=== PATIENT | female | born 1970 | race American Indian/Alaskan Native ===

== ENCOUNTER 2017-03-24 12:10 | Inpatient (IN) | payer MEDICARE ==
[~2017-03-24 12:10] MED LIST: DECADRON 20 MG in NACL 0.9% 50 ML IV ONE; DECADRON ONE
[2017-03-24] MEDS ORDERED: VERSED IV NR ×2 (12:17→13:49)
[2017-03-24] MEDS ORDERED: AMIDATE IV ONE (12:17)
[2017-03-24] MEDS ORDERED: KETALAR IV ONE ×2 (12:20→12:24)
[2017-03-24] MEDS ORDERED: QUELICIN IV ONE (12:23)
[2017-03-24] MEDS ORDERED: NACL 0.9% 1000 ML 0 ML ONE (12:29)
[2017-03-24] MEDS ORDERED: DIPRIVAN 10 MG/ML 1,000 MG/100 ML BOTTLE IV ONE (12:30)
[2017-03-24] MEDS ORDERED: ARTIFICIAL TEARS OPHTH OINT OU PRN (12:34)
[2017-03-24] MEDS ORDERED: VASELINE LIP THERAPY TP PRN (12:34)
[2017-03-24] MEDS ORDERED: ZEMURON IV ONE ×2 (12:35→20:15)
[2017-03-24] MEDS: DIPRIVAN 10 MG/ML 1,000 MG/100 ML BOTTLE IV SCH ×2 (12:37→19:08)
[2017-03-24 12:57] LABS: Basophils % (Auto) 0.7 % (0.0-1.8); Eosinophils % (Auto) 6.2 % (0.0-4.3); Hematocrit 35.5 % (30.3-42.9); Hemoglobin 11.5 gm/dl (10.1-14.3); Mean Corpuscular HGB Conc 33 % (30-34); Mean Corpuscular Volume 70 fl (79-97); Red Blood Count 5.07 M/mm3 (3.65-5.03); Red Cell Distribution Width 17.1 % (13.2-15.2); White Blood Count 8.6 K/mm3 (4.5-11.0)
--- NOTE | 2017-03-24 12:57 | History and Physical Report ---
History of Present Illness Date of examination: 03/24/17 Date of admission: 03/24/17 Chief complaint: Severe swelling of Lips and Tongue since AM DIfficulty swallowing Also resp distress. since AM History of present illness: SEMINOLE: Patient states that she awoke from sleep with neck and tongue swelling. She states she's never had anything like this before. She does admit to difficulty in breathing but is not frankly stridorous. She states that she cannot swallow her secretions. She is on lisinopril 40 mg daily and compliant. She's had no other obvious exposure. She was transported via EMS who gave her 0.5 of epinephrine and 50 of Benadryl IM. There was no appreciable change in route. -: During the night Location: mouth (tongue), neck Radiation: non-radiation Severity scale (0 -10): 0 Consistency: constant Improves with: none Worsens with: none In the ED patient was intubated by Dr Solitario and it was moderately difficult intubation.Has severe Lip and Tongue swelling. - Related Data Home Medications Medication Instructions Recorded Confirmed Last Taken Budesoni/Formotero 160-4.5(Nf) 1 puff IH Q6H PRN 11/10/13 08/29/14 Unknown [Symbicort 160-4.5 (Nf)] Furosemide [Lasix] 40 mg PO QDAY 11/10/13 08/29/14 08/28/14 09:00 Hydroxychloroquine [Plaquenil] 200 mg PO QDAY 11/10/13 08/29/14 08/28/14 09:00 Lisinopril [Zestril] 40 mg PO QDAY 11/10/13 08/29/14 08/28/14 09:00 Tiotropium [Spiriva] 1 cap IH QDAY 11/10/13 08/29/14 08/28/14 09:00 Tizanidine HCl [Zanaflex] 4 mg PO Q8H PRN 11/10/13 08/29/14 08/28/14 09:00 Allopurinol [Zyloprim] 100 mg PO QDAY 08/29/14 08/29/14 08/28/14 09:00 Ergocalciferol [Vitamin D2] 50,000 unit PO QWEEK 08/29/14 08/29/14 08/24/14 09: 00 Folic Acid [Folvite] 1 mg PO QDAY 08/29/14 08/29/14 08/28/14 09:00 Methotrexate(Dose Weekly Only) 10 mg PO QWEEK 08/29/14 08/29/14 08/24/14 09:00 Metoprolol [Lopressor TAB] 25 mg PO QDAY 08/29/14 08/29/14 08/28/14 09:00 Previous Rx's Medication Instructions Recorded Last Taken Type Metoclopramide HCl [Reglan] 10 mg PO Q6H PRN #15 tablet 11/10/13 Unknown Rx Hyoscyamine Subl [Levsin Sl] 0.125 mg SL Q4HR PRN #10 tablet 08/29/14 Unknown Rx Ondansetron [Zofran Odt] 4 mg PO Q6H #10 tab.rapdis 08/29/14 Unknown Rx Allergies Allergy/AdvReac Type Severity Reaction Status Date / Time No Known Allergies Allergy Verified 08/29/14 10:02 ED Review of Systems ROS: Stated complaint: SREE/SWOLLEN TONGUE/ALLERGIC REACTION Other details as noted in HPI Constitutional: denies: chills, fever Eyes: denies: eye pain, eye discharge, vision change ENT: as per HPI. denies: ear pain, throat pain Respiratory: no symptoms reported. denies: cough, wheezing Cardiovascular: denies: chest pain, palpitations Endocrine: no symptoms reported Gastrointestinal: denies: abdominal pain, nausea, diarrhea Genitourinary: denies: urgency, dysuria, discharge Musculoskeletal: denies: back pain, joint swelling, arthralgia Skin: denies: rash, lesions Neurological: denies: headache, weakness, paresthesias Psychiatric: denies: anxiety, depression Hematological/Lymphatic: denies: easy bleeding, easy bruising ED Past Medical Hx - Past Medical History Hx Hypertension: Yes Hx Renal Disease: Yes Hx Asthma: Yes Additional medical history: lupus - Surgical History Hx Cholecystectomy: Yes Additional Surgical History: TUBAL LIGATION. LEFT OVARY REMOVED. LEFT FOOT RECONSTRUCTION - Social History Smoking Status: Former Smoker Substance Use Type: None - Medications Home Medications: Home Medications Medication Instructions Recorded Confirmed Last Taken Type Budesoni/Formotero 160-4.5(Nf) 1 puff IH Q6H PRN 11/10/13 08/29/14 Unknown History [Symbicort 160-4.5 (Nf)] Furosemide [Lasix] 40 mg PO QDAY 11/10/13 08/29/14 08/28/14 09:00 History Hydroxychloroquine [Plaquenil] 200 mg PO QDAY 11/10/13 08/29/14 08/28/14 09:00 History Lisinopril [Zestril] 40 mg PO QDAY 11/10/13 08/29/14 08/28/14 09:00 History Metoclopramide HCl [Reglan] 10 mg PO Q6H PRN #15 tablet 11/10/13 08/29/14 Unknown Rx Tiotropium [Spiriva] 1 cap IH QDAY 11/10/13 08/29/14 08/28/14 09:00 History Tizanidine HCl [Zanaflex] 4 mg PO Q8H PRN 11/10/13 08/29/14 08/28/14 09:00 History Allopurinol [Zyloprim] 100 mg PO QDAY 08/29/14 08/29/14 08/28/14 09:00 History Ergocalciferol [Vitamin D2] 50,000 unit PO QWEEK 08/29/14 08/29/14 08/24/14 09: 00 History Folic Acid [Folvite] 1 mg PO QDAY 08/29/14 08/29/14 08/28/14 09:00 History Hyoscyamine Subl [Levsin Sl] 0.125 mg SL Q4HR PRN #10 tablet 08/29/14 Unknown Rx Methotrexate(Dose Weekly Only) 10 mg PO QWEEK 08/29/14 08/29/14 08/24/14 09:00 History Metoprolol [Lopressor TAB] 25 mg PO QDAY 08/29/14 08/29/14 08/28/14 09:00 History Ondansetron [Zofran Odt] 4 mg PO Q6H #10 tab.rapdis 08/29/14 Unknown Rx Medications and Allergies Allergies Allergy/AdvReac Type Severity Reaction Status Date / Time No Known Allergies Allergy Verified 08/29/14 10:02 Home Medications Medication Instructions Recorded Confirmed Last Taken Type Budesoni/Formotero 160-4.5(Nf) 1 puff IH Q6H PRN 11/10/13 08/29/14 Unknown History [Symbicort 160-4.5 (Nf)] Furosemide [Lasix] 40 mg PO QDAY 11/10/13 08/29/14 08/28/14 09:00 History Hydroxychloroquine [Plaquenil] 200 mg PO QDAY 11/10/13 08/29/14 08/28/14 09:00 History Lisinopril [Zestril] 40 mg PO QDAY 11/10/13 08/29/14 08/28/14 09:00 History Metoclopramide HCl [Reglan] 10 mg PO Q6H PRN #15 tablet 11/10/13 08/29/14 Unknown Rx Tiotropium [Spiriva] 1 cap IH QDAY 11/10/13 08/29/14 08/28/14 09:00 History Tizanidine HCl [Zanaflex] 4 mg PO Q8H PRN 11/10/13 08/29/14 08/28/14 09:00 History Allopurinol [Zyloprim] 100 mg PO QDAY 08/29/14 08/29/14 08/28/14 09:00 History Ergocalciferol [Vitamin D2] 50,000 unit PO QWEEK 08/29/14 08/29/14 08/24/14 09: 00 History Folic Acid [Folvite] 1 mg PO QDAY 08/29/14 08/29/14 08/28/14 09:00 History Hyoscyamine Subl [Levsin Sl] 0.125 mg SL Q4HR PRN #10 tablet 08/29/14 Unknown Rx Methotrexate(Dose Weekly Only) 10 mg PO QWEEK 08/29/14 08/29/14 08/24/14 09:00 History Metoprolol [Lopressor TAB] 25 mg PO QDAY 08/29/14 08/29/14 08/28/14 09:00 History Ondansetron [Zofran Odt] 4 mg PO Q6H #10 tab.rapdis 08/29/14 Unknown Rx Active Meds: Active Medications Hydrophilic Ointment (Vaseline Lip Therapy) 1 applic TP Q2HR PRN PRN Reason: Dry Lips Propofol (Diprivan 10 Mg/Ml) 1,000 mg in 100 mls @ 2.313 mls/hr IV TITR KAMARI; 5 MCG/KG/MIN PRN Reason: Protocol Multi-Ingred Cream/Lotion/Oil/Oint (Artificial Tears Ophth Oint) 1 applic OU Q4HR PRN PRN Reason: Dry Eye(s) Sodium Chloride (Nacl 0.9% 500 Ml) 1 ml IV DIRECT KAMARI Exam - Physical Exam Narrative exam: In distress sec to intubation and swelling of tongue and lips - Constitutional Vitals: Temp Pulse Resp BP Pulse Ox 98.4 F 123 H 18 185/116 100 03/24/17 12:38 03/24/17 12:38 03/24/17 12:38 03/24/17 12:38 03/24/17 12:38 General appearance: Present: severe distress, well-nourished - EENT Eyes: Present: PERRL ENT: hearing intact, clear oral mucosa, other (Swelling of Lips and tongue - severe) - Neck Neck: Present: supple, normal ROM - Respiratory Respiratory effort: normal Respiratory: bilateral: diminished - Cardiovascular Heart Sounds: Present: S1 & S2. Absent: rub, click - Extremities Extremities: pulses symmetrical, No edema Peripheral Pulses: within normal limits - Abdominal General gastrointestinal: Present: soft, non-tender, non-distended, normal bowel sounds Female genitourinary: Present: normal - Integumentary Integumentary: Present: clear, warm, dry - Musculoskeletal Musculoskeletal: gait normal, strength equal bilaterally - Psychiatric Psychiatric: appropriate mood/affect, intact judgment & insight - Neurologic Neurologic: CNII-XII intact, moves all extremities Results - Labs CBC & Chem 7: 03/24/17 12:05 03/24/17 12:05 Labs: Short CBC 03/24/17 Range/Units 12:05 WBC 8.6 (4.5-11.0) K/mm3 Hgb 11.5 (10.1-14.3) gm/dl Hct 35.5 (30.3-42.9) % Plt Count 127 L (140-440) K/mm3 BMP 03/24/17 12:05 Sodium 143 Potassium 5.0 Chloride 104.6 Carbon Dioxide 23 BUN 26 H Creatinine 1.6 H Glucose 97 Calcium 8.8 Liver Function 03/24/17 Range/Units 12:05 Total Bilirubin 0.30 (0.1-1.2) mg/dL Direct Bilirubin 0.2 (0-0.2) mg/dL AST 20 (5-40) units/L ALT 11 (7-56) units/L Alkaline Phosphatase 78 (35-129) units/L Albumin 4.0 (3.9-5) g/dL - Imaging and Cardiology EKG: report reviewed Chest x-ray: report reviewed Assessment and Plan Advance Directives: Yes (Full code) VTE prophylaxis?: Chemical Plan of care discussed with patient/family: Yes - Patient Problems (1) Acute respiratory failure Current Visit: Yes Status: Acute Qualifiers: Respiratory failure complication: hypoxia Qualified Code(s): J96.01 - Acute respiratory failure with hypoxia Plan to address problem: Patient intubated sec to near airway closure and on going resp distress.Vent management.Critical care consult requested. (2) Angioedema Current Visit: Yes Status: Acute Qualifiers: Encounter type: initial encounter Qualified Code(s): T78.3XXA - Angioneurotic edema, initial encounter Plan to address problem: Severe.Patient initiated on Iv solumedrol and .Avoid Anselmo inhibitors. Iv fluids and IV pepcid along with benadryl.Started patient on COreg and Amlodipine.Will avoid ARB's also for time being.Patient to be given instructions at discharge to avoid Lisinopril and other ANSELMO inhibitors. (3) COPD (chronic obstructive pulmonary disease) Current Visit: Yes Status: Chronic Qualifiers: COPD type: C Chronic bronchitis type: C Emphysema type: unspecified Qualified Code(s): J43.9 - Emphysema, unspecified Plan to address problem: Cont Duonebs.Patient on Spiriva at home (4) HTN (hypertension) Current Visit: Yes Status: Chronic Qualifiers: Hypertension type: essential hypertension Qualified Code(s): I10 - Essential (primary) hypertension Plan to address problem: Initiated on Coreg and Amlodipine.Will add Hydralazine if necessary. (5) Renal insufficiency Current Visit: Yes Status: Acute Plan to address problem: IV fluids for now (6) Rheumatoid arthritis Current Visit: Yes Status: Inactive Qualifiers: Rheumatoid arthritis location: R Rheumatoid factor presence: R Laterality : L Plan to address problem: ON Methotrexate (7) DVT prophylaxis Current Visit: Yes Status: Acute Plan to address problem: On Lovenox 40 mg sq qd
[2017-03-24] MEDS ORDERED: MILK OF MAGNESIA PO PRN (12:59)
[2017-03-24] MEDS ORDERED: DULCOLAX PR PRN (12:59)
[2017-03-24] MEDS ORDERED: TYLENOL PO PRN (12:59)
[2017-03-24] MEDS ORDERED: NACL 0.9% 500 ML IV SCH (13:00)
[2017-03-24] MEDS: LOVENOX SUB-Q SCH (13:00)
[2017-03-24] MEDS ORDERED: DUONEB *Not for PRN Use IH (13:05)
[2017-03-24] MEDS ORDERED: PROVENTIL IH PRN (13:13)
[2017-03-24 13:20] LABS: Mean Corpuscular Hemoglobin 23 pg (28-32)
[2017-03-24 13:23] LABS: Alanine Aminotransferase 11 units/L (7-56); Albumin/Globulin Ratio 0.9 %; Alkaline Phosphatase 78 units/L (35-129); Anion Gap 20 mmol/L; BUN/Creatinine Ratio 16.25; Blood Urea Nitrogen 26 mg/dL (7-17); Calcium 8.8 mg/dL (8.4-10.2); Carbon Dioxide 23 mmol/L (22-30); Chloride 104.6 mmol/L (98-107); Glucose 97 mg/dL (65-100); Sodium 143 mmol/L (137-145); Total Protein 8.6 g/dL (6.3-8.2)
--- NOTE | 2017-03-24 13:24 | XRay Report ---
Single view chest: History: ET tube placement. Findings: Borderline cardiomegaly. Trachea is midline. Tip of endotracheal tube just above the level of mike. No acute consolidation, pneumothorax or pleural effusion. Impression: No acute cardiopulmonary findings.
--- NOTE | 2017-03-24 13:29 | Emergency Department Report ---
ED General Adult HPI - General Chief complaint: Allergic Reaction Stated complaint: SREE/SWOLLEN TONGUE/ALLERGIC REACTION Time Seen by Provider: 03/24/17 12:52 Source: EMS Mode of arrival: Stretcher Limitations: Other - History of Present Illness Initial comments: Patient states that she awoke from sleep with neck and tongue swelling. She states she's never had anything like this before. She does admit to difficulty in breathing but is not frankly stridorous. She states that she cannot swallow her secretions. She is on lisinopril 40 mg daily and compliant. She's had no other obvious exposure. The patient did state that she thinks that her swelling is somewhat worse than it was upon awakening. She was transported via EMS who gave her 0.5 of epinephrine and 50 of Benadryl IM. There was no appreciable change in route. -: During the night Location: mouth (tongue), neck Radiation: non-radiation Severity scale (0 -10): 0 Consistency: constant Improves with: none Worsens with: none - Related Data Home Medications Medication Instructions Recorded Confirmed Last Taken Budesoni/Formotero 160-4.5(Nf) 1 puff IH Q6H PRN 11/10/13 08/29/14 Unknown [Symbicort 160-4.5 (Nf)] Furosemide [Lasix] 40 mg PO QDAY 11/10/13 08/29/14 08/28/14 09:00 Hydroxychloroquine [Plaquenil] 200 mg PO QDAY 11/10/13 08/29/14 08/28/14 09:00 Lisinopril [Zestril] 40 mg PO QDAY 11/10/13 08/29/14 08/28/14 09:00 Tiotropium [Spiriva] 1 cap IH QDAY 11/10/13 08/29/14 08/28/14 09:00 Tizanidine HCl [Zanaflex] 4 mg PO Q8H PRN 11/10/13 08/29/14 08/28/14 09:00 Allopurinol [Zyloprim] 100 mg PO QDAY 08/29/14 08/29/14 08/28/14 09:00 Ergocalciferol [Vitamin D2] 50,000 unit PO QWEEK 08/29/14 08/29/14 08/24/14 09: 00 Folic Acid [Folvite] 1 mg PO QDAY 08/29/14 08/29/14 08/28/14 09:00 Methotrexate(Dose Weekly Only) 10 mg PO QWEEK 08/29/14 08/29/14 08/24/14 09:00 Metoprolol [Lopressor TAB] 25 mg PO QDAY 08/29/14 08/29/14 08/28/14 09:00 Previous Rx's Medication Instructions Recorded Last Taken Type Metoclopramide HCl [Reglan] 10 mg PO Q6H PRN #15 tablet 11/10/13 Unknown Rx Hyoscyamine Subl [Levsin Sl] 0.125 mg SL Q4HR PRN #10 tablet 08/29/14 Unknown Rx Ondansetron [Zofran Odt] 4 mg PO Q6H #10 tab.rapdis 08/29/14 Unknown Rx Allergies Allergy/AdvReac Type Severity Reaction Status Date / Time No Known Allergies Allergy Verified 08/29/14 10:02 ED Review of Systems ROS: Stated complaint: SREE/SWOLLEN TONGUE/ALLERGIC REACTION Other details as noted in HPI Constitutional: denies: chills, fever Eyes: denies: eye pain, eye discharge, vision change ENT: as per HPI. denies: ear pain, throat pain Respiratory: no symptoms reported. denies: cough, wheezing Cardiovascular: denies: chest pain, palpitations Endocrine: no symptoms reported Gastrointestinal: denies: abdominal pain, nausea, diarrhea Genitourinary: denies: urgency, dysuria, discharge Musculoskeletal: denies: back pain, joint swelling, arthralgia Skin: denies: rash, lesions Neurological: denies: headache, weakness, paresthesias Psychiatric: denies: anxiety, depression Hematological/Lymphatic: denies: easy bleeding, easy bruising ED Past Medical Hx - Past Medical History Hx Hypertension: Yes Hx Renal Disease: Yes Hx Asthma: Yes Additional medical history: lupus - Surgical History Hx Cholecystectomy: Yes Additional Surgical History: TUBAL LIGATION. LEFT OVARY REMOVED. LEFT FOOT RECONSTRUCTION - Social History Smoking Status: Former Smoker Substance Use Type: None - Medications Home Medications: Home Medications Medication Instructions Recorded Confirmed Last Taken Type Budesoni/Formotero 160-4.5(Nf) 1 puff IH Q6H PRN 11/10/13 08/29/14 Unknown History [Symbicort 160-4.5 (Nf)] Furosemide [Lasix] 40 mg PO QDAY 11/10/13 08/29/14 08/28/14 09:00 History Hydroxychloroquine [Plaquenil] 200 mg PO QDAY 11/10/13 08/29/14 08/28/14 09:00 History Lisinopril [Zestril] 40 mg PO QDAY 11/10/13 08/29/14 08/28/14 09:00 History Metoclopramide HCl [Reglan] 10 mg PO Q6H PRN #15 tablet 11/10/13 08/29/14 Unknown Rx Tiotropium [Spiriva] 1 cap IH QDAY 11/10/13 08/29/14 08/28/14 09:00 History Tizanidine HCl [Zanaflex] 4 mg PO Q8H PRN 11/10/13 08/29/14 08/28/14 09:00 History Allopurinol [Zyloprim] 100 mg PO QDAY 08/29/14 08/29/14 08/28/14 09:00 History Ergocalciferol [Vitamin D2] 50,000 unit PO QWEEK 08/29/14 08/29/14 08/24/14 09: 00 History Folic Acid [Folvite] 1 mg PO QDAY 08/29/14 08/29/14 08/28/14 09:00 History Hyoscyamine Subl [Levsin Sl] 0.125 mg SL Q4HR PRN #10 tablet 08/29/14 Unknown Rx Methotrexate(Dose Weekly Only) 10 mg PO QWEEK 08/29/14 08/29/14 08/24/14 09:00 History Metoprolol [Lopressor TAB] 25 mg PO QDAY 08/29/14 08/29/14 08/28/14 09:00 History Ondansetron [Zofran Odt] 4 mg PO Q6H #10 tab.rapdis 08/29/14 Unknown Rx ED Physical Exam - General Limitations: Physical Limitation General appearance: in distress - Head Head exam: Present: atraumatic - Eye Eye exam: Present: normal appearance. Absent: scleral icterus - ENT ENT exam: Present: other (there is substantial swelling of the tongue particularly on the left side. It is difficult to completely few the oral pharynx however the posterior pharynx does not seem to be significantly involved.) - Neck Neck exam: Present: other (there is 2-3+ swelling of the neck particularly supple buccal submandibular submental) - Respiratory Respiratory exam: Present: normal lung sounds bilaterally. Absent: respiratory distress - Cardiovascular Cardiovascular Exam: Present: regular rate, normal rhythm. Absent: systolic murmur, diastolic murmur, rubs, gallop - GI/Abdominal GI/Abdominal exam: Present: soft, normal bowel sounds. Absent: distended, tenderness, guarding, rebound, rigid - Extremities Exam Extremities exam: Present: normal inspection - Back Exam Back exam: Present: normal inspection - Neurological Exam Neurological exam: Present: alert, oriented X3, CN II-XII intact. Absent: motor sensory deficit - Psychiatric Psychiatric exam: Present: normal affect, anxious - Skin Skin exam: Present: warm, dry, intact, normal color. Absent: rash ED Course Vital Signs 03/24/17 12:38 Temperature 98.4 F Pulse Rate 123 H Respiratory 18 Rate Blood Pressure 185/116 O2 Sat by Pulse 100 Oximetry - Reevaluation(s) Reevaluation #1: The patient was immediately given 40 of Pepcid and 20 of Decadron. I stayed at the bedside to monitor her response. I felt like she was developing a bit of a "hot potato"voice. She did have some lingual edema. Therefore I explained to the patient and need for elective intubation. She understood and consented. I started with a "awake intubation". Patient was provided a total of 5 of Versed 100 ketamine and 10 of etomidate. He did not really respond well to the etomidate so she was not given more. She remained at a pulse oximetry of 98- 100. While deeply sedated we verified our ability to ventilate the patient which was good. She did require more relaxation. Therefore she was given 100 mg of succinylcholine. This was ample. Under direct laryngoscopy with a Mac 4 blade it was noted that the patient had a very anterior airway. I believe there was a bit of airway edema as well. I did not attempt direct endotracheal intubation. Instead a bougie was successfully introduced into the airway. Then a 7.5 [place] endotracheal tube was advanced without difficulty and secured at 24 cm. End tidal CO2 was positive. Good bilateral breath sounds. Additional sedation was given. 03/24/17 13:33 - Intubation Time Out Performed: No Sedative: Etomidate Mg Given: 10 (see above note) Paralytic: Succinylcholine Laryngoscope: Hannah Size: 4 Assist Device Used: Bougie ET Tube Size: 7.5 Tube Secured Depth (cm): 24 Tube Secured Location: teeth Tube Placement Confirmation: equal breath sounds bilat, no breath sounds over epi, confirmation by capnometr Patient Tolerated Procedure: well Intubation Complications: none ED Medical Decision Making - Lab Data Result diagrams: 03/24/17 12:05 03/24/17 12:05 Laboratory Results - last 24 hr 03/24/17 03/24/17 03/24/17 12:05 12:05 13:26 WBC 8.6 RBC 5.07 H Hgb 11.5 Hct 35.5 MCV 70 L MCH 23 L MCHC 33 RDW 17.1 H Lymph % (Auto) 46.1 H [place] % (Auto) 9.2 H Eos % (Auto) 6.2 H Baso % (Auto) 0.7 Lymph # 4.0 [place] # 0.8 Eos # 0.5 H Baso # 0.1 Seg Neutrophils % 37.8 L Seg Neutrophils # 3.2 POC ABG pH 7.308 L POC ABG pCO2 46.4 H POC ABG pO2 188 H POC ABG HCO3 23.2 POC ABG Total CO2 25 POC ABG O2 Sat 100 POC ABG Base Excess -3 FiO2 60 Sodium 143 Potassium 5.0 Chloride 104.6 Carbon Dioxide 23 Anion Gap 20 BUN 26 H Creatinine 1.6 H Estimated GFR 42 BUN/Creatinine Ratio 16.25 Glucose 97 Calcium 8.8 Magnesium 2.70 H Total Bilirubin 0.30 ALT 11 Alkaline Phosphatase 78 Total Protein 8.6 H Albumin 4.0 Albumin/Globulin Ratio 0.9 Platelets were 127,000. They have been flagged for review. - Radiology Data interpreted by me: Chest x-ray showed no acute process other than an endotracheal tube being in good position 2-3 cm above the mike. Critical Care Time: Yes Critical care time in (mins) excluding proc time.: 40 Critical care attestation.: If time is entered above; I have spent that time in minutes in the direct care of this critically ill patient, excluding procedure time. ED Disposition Clinical Impression: Airway compromise, Renal insufficiency Angioedema Qualifiers: Encounter type: initial encounter Qualified Code(s): T78.3XXA - Angioneurotic edema, initial encounter Disposition: DC-09 OP ADMIT IP TO THIS HOSP Is pt being admited?: Yes Does the pt Need Aspirin: No Condition: Stable Referrals: PRIMARY CARE, [Primary Care Provider] - 3-5 Days Time of Disposition: 13:42
[2017-03-24 13:34] LABS: ISTAT Base Excess -3; ISTAT HCO3 23.2; ISTAT PCO2 46.4 (35-45); ISTAT PH 7.308 (7.35-7.45); ISTAT PO2 188 (80-105); ISTAT SO2 100; ISTAT TCO2 25
[2017-03-24 13:39] LABS: Platelet Count 127 K/mm3 (140-440)
[2017-03-24 14:00] LABS: Bilirubin,Direct 0.2 mg/dL (0-0.2)
[2017-03-24] MEDS ORDERED: NORMODYNE IV ONE ×3 (14:00→14:56)
[2017-03-24] MEDS ORDERED: ATIVAN ONE (14:09)
[2017-03-24] MEDS ORDERED: fentaNYL DRIP Premix 2,000 MCG/100 ML BAG IV ONE (14:11)
[2017-03-24] MEDS: PEPCID IV SCH ×2 (14:54→21:40)
[2017-03-24] MEDS: LOPRESSOR PO SCH (14:58)
[2017-03-24] MEDS: COREG PO SCH ×2 (14:59→23:00)
[2017-03-24] MEDS ORDERED: LOVENOX SUB-Q ONE ×2 (15:00→15:02)
[2017-03-24] MEDS ORDERED: ATIVAN IV NR (15:00)
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
[2017-03-24] MEDS: DUONEB *Not for PRN Use IH SCH ×2 (17:16→20:39)
--- NOTE | 2017-03-24 19:11 | Admit Criteria Form ---
Admission Criteria Documentation: GENERAL ADMISSION CRITERIA (Place 'X' for any and all applicable criteria): Admission is indicated for ANY ONE of the following: [ ]I. Hemodynamic instability as indicated by ANY ONE of the following(1)(2) (3)(4)(5): [ ]a) Vital sign abnormality not readily corrected by appropriate treatment within 12 to 24 hours indicated by ANY ONE of the following: [ ]i) Hypotension [ ]ii) Symptomatic Tachycardia unresponsive to treatment (eg , analgesia, fluids, sedation as indicated) [ ]iii) Orthostatic vital sign changes unresponsive to treatment (eg, fluids) [ ]b) Vital sign abnormality that is severe indicated by ANY ONE of the following: [ ]i) Inadequate perfusion indicated by ANY ONE of the following: [ ]1) Lactic acidosis (greater than 2 mmol/L) [ ]2) New abnormal capillary refill (greater than 3 seconds) [ ]3) Other metabolic acidosis (arterial pH less than 7.35) not otherwise explained [ ]4) Reduced urine output [ ]5) Altered mental status [ ]6) Myocardial Ischemia [ ]v) Mean arterial pressure[A] less than 60 mm Hg [ ]vi) Mean arterial pressure[A] less than 70 mm Hg after 30 minutes of appropriate treatment (eg, fluid resuscitation) [ ]vii) IV inotropic or vasopressor medication required to maintain adequate blood pressure or perfusion [ ]viii) Sustained heart rate greater than 120 beats per minute in adult or child 6 years or older[B]] [ ]II. Hypertension requiring inpatient treatment as indicated by ANY ONE of the following(6)(7)(8): [ ]a) SBP greater than 220 mm Hg or DBP greater than 120 mm Hg despite treatment [ ]b) SBP greater than 140 mm Hg or DBP greater than 100 mm Hg with evidence of acute end organ damage as indicated by ANY ONE of the following: [ ]i) Encephalopathy [ ]ii) Acute renal failure as indicated by new onset of ANY ONE of the following(9)(10)(11)(12)(13): [ ]1) A 3-fold rise in serum creatinine from baseline [ ]2) Serum creatinine greater than 4 mg/dL ( 354 micromoles/L) with acute rise greater than 0.5 mg/dL (44.2 micromoles/L) [ ]3) Reduction of more than 75% in estimated glomerular filtration rate from baseline [ ]4) Estimated glomerular filtration rate less than 35 mL/min/1.73m2 (0.59 mL/sec/1.73m2) in child up to 18 years of age [ ]5) Cessation of urine output indicated by ALL of the following: [ ]A. Adequate volume status [ ]B. Inadequate urine output as indicated by ANY ONE of the following: [ ]a. Urine output less than 0.3 mL/kg/hr for 24 hours [ ]b. Anuria (urine output less than 0.1 mL/kg/hr) for 12 hours [ ]iii) Aortic dissection [ ]iv) Myocardial ischemia [ ]v) Left ventricular heart failure [ ]vi) Retinal hemorrhage [ ]vii) Other significant finding [ ]c) Hypertension in child requiring inpatient treatment as indicated by ALL of the following(14)(15)(16): [ ]i) Outpatient treatment not effective, not available, or not appropriate [ ]ii) SBP or DBP greater than 95th percentile for age [ ]iii) Evidence of acute end organ damage as indicated by ANY ONE of the following: [ ]1) Altered mental status [ ]2) Acute renal failure as indicated by new onset of ANY ONE of the following(9)(10)(11)(12)(13): [ ]A. A 3-fold rise in serum creatinine from baseline [ ]B. Serum creatinine greater than 4 mg/dL (354 micromoles/L) with acute rise greater than 0.5 mg/dL (44.2 micromoles/L) [ ]C. Reduction of more than 75% in estimated glomerular filtration rate from baseline [ ]D. Estimated glomerular filtration rate less than 35 mL/min/1.73m2 (0.59 mL/sec/1.73m2)in child up to 18 years of age [ ]E. Cessation of urine output indicated by ALL of the following: [ ]a. Adequate volume status [ ]b. Inadequate urine output as indicated by ANY ONE of the following: [ ]1) Urine output less than 0.3 mL/kg/hr for 24 hours [ ]2) Anuria (urine output less than 0.1 mL/kg/hr) for 12 hours [ ]3) Severe headache [ ]4) Visual disturbance [ ]5) Retinal hemorrhage [ ]6) Other significant finding [ ]III. Acute cardiac or peripheral ischemia as indicated by ANY ONE of the following: [ ]a) Acute coronary syndrome(17)(18) [ ]b) Acute peripheral ischemia (eg, pulseless, cool, mottled, or cyanotic extremity)(19) [ ]IV. Cardiac arrhythmias or findings of immediate concern indicated by ANY ONE of the following(20)(21): [ ]a) Heart rhythms that are inherently dangerous or unstable indicated by ANY ONE of the following(22)(23)(24): [ ]i) Resuscitated ventricular fibrillation or cardiac arrest [ ]ii) Ventricular escape rhythm [ ]iii) Sustained ventricular tachycardia (30 seconds or more of ventricular rhythm at greater than 100 beats per minute) [ ]iv) Nonsustained ventricular tachycardia and ANY ONE of the following: [ ]1) Suspected cardiac ischemia as cause or consequence of ventricular tachycardia [ ]2) In setting of acute myocarditis [ ]b) Unstable cardiac conduction defects indicated by ANY ONE of the following(24)(25)(26): [ ]i) Type II second-degree atrioventricular block [ ]ii) Third-degree atrioventricular block [ ]iii) New-onset left bundle branch block with suspected myocardial ischemia [ ]c) Any heart rhythm and ANY ONE of the following(22)(23)(27)(28)( 29): [ ] i) Continuous long-term ECG monitoring needed (eg, initiation of drug requiring monitoring for more than 24 hours) [ ] ii) Patient has automatic implanted cardioverter defibrillator that is repeatedly firing, malfunctioning, or in need of immediate adjustment of settings beyond the scope of ambulatory or observation care. [ ]d) Heart rhythms of concern due to ANY ONE of the following: [ ]i) Hypotension [ ]ii) Respiratory distress [ ]iii) Association with other significant symptoms (eg, bradycardia with syncope or ongoing dizziness, supraventricular tachycardia with chest pain) (27)(28) (30) [ ] V. Severe heart failure as indicated by ANY ONE of the following ( 31)(32): [ ]a) Respiratory distress [ ]b) Hypotension [ ]c) Anasarca (refractory to outpatient therapy) [ ]d) Cardiac arrhythmias of immediate concern [ ]e) Myocardial ischemia [ ]. Respiratory abnormalities, including ANY ONE of the following(33)(34) (35)(36): [ ]a) Respiratory rate greater than 30 breaths per minute unresponsive to treatment [A] [ ]b) New saturation of arterial oxygen less than 90% [ ]c) New partial pressure of carbon dioxide greater than 44 mm Hg ( 5.9 kPa) [ ]d) Supplemental oxygen or respiratory treatments needed that are new or not performable at other levels of care [ ]e) New-onset cyanosis [ ]f) Inability to protect airway [ ]g) Chronic lung disease with severe deterioration (not responsive to emergency and observation care treatment as appropriate) as indicated by ANY ONE of the following(34)(36 ): [ ]i) SaO2 5% below baseline in patient with chronic hypoxemia [ ]ii) New requirement for supplemental oxygen to keep SaO2 at baseline or acceptable level [ ]iii) Required supplemental oxygen performable only in acute inpatient setting [ ]iv) Severe airflow or ventilation abnormalities [ ]v) Previously mobile patient unable to walk between rooms [ ]vi Inability to eat or sleep due to dyspnea [ ]vii) Rapid rate of exacerbation onset [ ]viii) Altered mental status X]VII. Severe airflow or ventilation abnormalities (not responsive to emergency and observation care treatment as appropriate) as indicated by ANY ONE of the following(33)(34)(35)(37): [X ]a) PCO2 greater than 42 mm Hg (5.6 kPa) and pH less than 7.35 ( new) [ ]b) Documented PCO2 increased more than 5 mm Hg (0.7 kPa) from disease baseline [ ]c) Airflow measurements [B] less than 60% of previous best or predicted (eg, peak expiratory flow rate less than 300 L/minute) despite intensive emergent treatment [C] [ ]d) Required respiratory treatments that are performable only in acute inpatient setting [ ]VIII. Impending or actual respiratory arrest ( Also use Respiratory Failure GRG for severe respiratory disease and long-term mechanical ventilation patients) [ ]IX. Neurologic abnormalities, including ANY ONE of the following: [ ]a) New findings that suggest ANY ONE of the following: [ ]i) ORDERLY infection(38) [ ]ii) Cerebral bleeding, ischemia, or vasospasm(39)(40) [ ]iii) Increased intracranial pressure, hydrocephalus, or cerebral edema(41)(42)(43) [ ]iv) Spinal cord injury(44) [ ]b) Uncontrolled seizures(45) [ ]c) New-onset coma (eg, Suha coma scale score less than 9) or unexplained abnormal mental status (eg, Melrose coma scale score less than 14) [D](41)(46)(47) [ ]X. New-onset severe neurologic findings requiring inpatient care; examples include(42)(48)(49): [ ]a) Papilledema [ ]b) Cerebral edema [ ]c) Mass effect on CT scan [ ]XI. Suspected acute intra-abdominal process with peritoneal signs, abdominal mass, or similar findings (50)(51)(52) [ ]XII. Severe physiologic disorder remaining after emergency or observation level care (as appropriate) as indicated by ANY ONE of the following (53): [ ]a) Significant dehydration [ ]b) Diabetic ketoacidosis [ ]c) Hyperglycemic hyperosmolar state (eg, osmolality greater than 320 mOsm/kg (mmol/kg) [ ]d) Hypoglycemia [ ]e) Other (new) acid-base disorder with pH less than 7.35 or greater than 7.5(54) [ ]f) Thyroid storm (55) [ ]g) Myxedema coma (55) [ ]XIII. Abdominal abnormalities with ANY ONE of the following(56)(57): [ ]a) Absent bowel sounds with complete ileus [ ]b) Signs of intestinal obstruction or peritonitis [E] [ ]c) Nausea and vomiting that cannot be controlled with outpatient or observation care [ ]XIV. Acute renal failure as indicated by new onset of ANY ONE of the following(9)(10)(11)(12)(13): [ ]a) A 3-fold rise in serum creatinine from baseline [ ]b) Serum creatinine greater than 4 mg/dL (354 micromoles/L) with acute rise greater than 0.5 mg/dL (44.2 micromoles/L) [ ]c) Reduction of more than 75% in estimated glomerular filtration rate from baseline [ ]d) Estimated glomerular filtration rate less than 35 mL/min/ 1.73m2 (0.59 mL/sec/1.73m2) in child up to 18 years of age [ ]e) Cessation of urine output indicated by ALL of the following: [ ]i) Adequate volume status [ ]ii) Inadequate urine output as indicated by ANY ONE of the following: [ ]1) Urine output less than 0.3 mL/kg/hr for 24 hours [ ]2) Anuria (urine output less than 0.1 mL/kg/hr) for 12 hours [ ]XV. Significant uremic complications as indicated by ANY ONE of the following(58)(59)(60): [ ]a) Outpatient therapy is ineffective or not feasible for ANY ONE of the following: [ ]i) Severe heart failure [ ]ii) Severehypertension [ ]iii) Pleural effusion [ ]iv) Pericarditis or pericardial effusion [ ]b) Cardiac arrhythmias of immediate concern [ ]c) Intractable nausea or vomiting [ ]d) Recurrent seizures [ ]e) Encephalopathy [ ]f) Bleeding abnormalities (eg, platelet dysfunction) with active (eg, gastrointestinal) bleeding [ ]g) Dialysis indicated before long-term access or ambulatory arrangements can be made [ ]h) Significant metabolic or electrolyte abnormalities (eg, severe acidosis or hyperkalemia) [ ]XVI. High fever or other high-risk infection situation as indicated by ANY ONE of the following(61)(62)(63)(64): [ ]a) Outpatient and observation care antimicrobial treatment unavailable, not effective, or not appropriate [ ]b) Documented bacteremia [ ]c) Temperature greater than 40.5 degrees C (104.9 degrees F) ( oral) [ ]d) Temperature greater than 39.5 degrees C (103.1 degrees F) ( oral) or less than 36 degrees C (96.8 degrees F) (rectal) that does not respond to e treatment and observation care [ ] XVII. Temperature less than 95 degrees F (35 degrees C)(rectal)(65) [ ] XVIII. Severe nutritional abnormalities as indicated by ALL of the following (66)(67): [ ]a) Inability to tolerate or establish sufficient oral or other enteral nutrition in outpatient setting [ ]b) Parenteral nutrition regimen need that must be implemented on inpatient basis [ ] XIX. Severe electrolyte abnormalities indicated by ALL of the following(68) (69)(70): [ ]a) Electrolytes and associated findings are not as expected for patient baseline or acceptable treatment effects. [ ]b) Severe abnormalities indicated by ANY ONE of the following: [ ]i) Sodium less than 130 mEq/L (mmol/L) (new) [ ]ii)Sodium less than 135 mEq/L (mmol/L) with ANY ONE of the following: [ ]1) Uncorrectable (to near normal or chronic baseline) after trial of outpatient and emergency treatment [ ]2) Altered mental status [ ]3) Seizures [ ]4) Severe medical etiology requiring inpatient management (eg, heart failure, hypovolemia) [ ]iii) Sodium greater than 155 mEq/L (mmol/L) [ ]iv) Sodium greater than 150 mEq/L (mmol/L) with ANY ONE of the following: [ ]1) Uncorrectable (to near normal or chronic baseline) with outpatient and emergency treatment [ ]2) Altered mental status [ ]3) Seizures [ ]4) Severe medical etiology (eg, hypovolemia, diabetes insipidus) [ ]v) Potassium less than 2.5 mEq/L (mmol/L) despite outpatient and emergency treatment [ ]vi) Potassium less than 3 mEq/L (mmol/L) with ANY ONE of the following: [ ]1) Weakness [ ]2) Cardiac abnormality (eg, arrhythmia, conduction disturbance) [ ]3) Cardiac ischemia [ ]4) Ileus [ ]5) Ongoing medical cause requiring inpatient management (eg, acute renal wasting or SIADH) [ ]6) Other severe symptoms [ ]vii) Potassium greater than 6.5 mEq/L (mmol/L) [ ]viii) Potassium greater than 5 mEq/L (mmol/L) with ANY ONE of the following: [ ]1) Uncorrectable (to near normal or chronic baseline) with outpatient and emergency treatment [ ]2) Severe ECG findings [F] [ ]3) Acute worsening of renal failure (creatinine greater than 2.5 mg/dL (221 micromoles/L) or significant elevation for age and size) [ ]4) Severe weakness [ ]5) Severe medical etiology (eg, hemolysis, infection, drug overdose) [ ]ix) Calcium less than 7 mg/dL (1.75 mmol/L) despite outpatient and emergency treatment (72) [ ]x) Calcium less than 8 mg/dL (2 mmol/L) with significant symptoms or findings; examples include(72): [ ]1) Altered mental status [ ]2) Muscle spasms [ ]3) Seizures [ ]4) Breathing difficulty [ ]5) Cardiac abnormality (eg, arrhythmia or conduction disturbance) [ ]xi) Calcium greater than 14 mg/dL (3.5 mmol/L)(72) [ ]xii) Calcium greater than 12 mg/dL (3 mmol/L) with ANY ONE of the following(72): [ ]1) Uncorrectable (to near normal or chronic baseline) with outpatient and emergency treatment [ ]2) Significant dehydration or hypovolemia as indicated by ALL of the following(70)(73)(74): [ ]A. Not resolved with initial treatments [ ]B. Clinically significant dehydration as indicated by ANY ONE of the following: [ ]a. Vomiting refractory to outpatient treatment (ie, precluding oral rehydration) [ ]b. Inability to drink [ ]c. Hypernatremia or other electrolyte abnormality unable to be corrected with outpatient and emergency treatment [ ]d. Failure to remain hydrated with outpatient therapy [ ]e. Reduced urine output [ ]f. Hypotension [ ]g. Serious cause for dehydration requiring acute hospitalization (eg, bowel obstruction, increased intracranial pressure, infectious cause) [ ]h. Child with ANY ONE of the following(75): [ ]1) Severe abdominal tenderness [ ]2) Adequate care not available at home [ ]3) Severe dehydration ( greater than 9% loss of body weight) [ ]4) Significant symptoms or findings; examples include: [ ]A. Altered mental status [ ]B. Cardiac abnormality (eg, arrhythmia, conduction disturbance) [ ]C. Malignant etiology requiring inpatient treatment [ ]xiii) Phosphorus less than 1 mg/dL (0.32 mmol/L) [ ]xiv) Phosphorus less than 1.5 mg/dL (0.48 mmol/L) with ANY ONE of the following: [ ]1) Patient unresponsive to outpatient and emergency treatment [ ]2) Significant symptoms or findings; examples include: [ ]A. Weakness [ ]B. Altered mental status [ ]C. Breathing difficulty [ ]D. Seizures [ ]E. Rhabdomyolysis [ ]xv) Phosphorus greater than 10 mg/dL (3.2 mmol/L) [ ]xvi) Phosphorus greater than 4.5 mg/dL (1.45 mmol/L) (new) with ANY ONE of the following: [ ]1) Severe medical etiology (eg, crush injury, acute renal failure) [ ]2) Associated hypocalcemia with significant findings; examples include: [ ]A. Neurologic symptoms [ ]B. Altered mental status [ ]C. Muscle spasms [ ]D. Seizures [ ]E. Breathing difficulty [ ]F. Cardiac abnormality (eg, arrhythmia, conduction disturbance) [ ]xvii) Magnesium less than 1 mg/dL (0.41 mmol/L) [ ]xviii) Magnesium less than 1.5 mg/dL (0.62 mmol/L) with ANY ONE of the following: [ ]1) Patient unresponsive to outpatient and emergency treatment [ ]2) Associated hypocalcemia with significant findings; examples include: [ ]A. Altered mental status [ ]B. Muscle spasms [ ]C. Seizures [ ]D. Breathing difficulty [ ]E. Cardiac abnormality (eg, arrhythmia , conduction disturbance) [ ]3) Associated hypokalemia (potassium less than 3 mEq/L (mmol/L)) with risk of arrhythmia [ ]xix) Magnesium greater than 4 mEq/L (2 mmol/L) [ ]xx) Magnesium greater than 2.5 mEq/L (1.25 mmol/L) with significant symptoms or findings; examples include: [ ]1) Weakness [ ]2) Altered mental status [ ]3) Cardiac abnormality (eg, arrhythmia, conduction disturbance) [ ]4) Breathing difficulty [ ]5) Severe medical etiology (eg, renal failure, hypovolemia) [ ]xxi) Uric acid greater than 20 mg/dL (1190 micromoles/L)(76) [ ]xxii) Uric acid greater than 8 mg/dL (476 micromoles/L) with significant symptoms or findings of tumor lysis syndrome; examples include(76): [ ]1) Creatinine greater than 1.5 times upper limit of normal [ ]2) Cardiac abnormality (eg, arrhythmia, conduction disturbance) [ ]3) Seizure [ ]XX. Acute blood loss causing significant abnormality as indicated by ANY ONE of the following(77)(78): [ ]a) Hemoglobin less than 10 g/dL (100 g/L) (not baseline) [ ]b) Hematocrit less than 30% (0.30) (not baseline) [ ]c) Repeat hematocrit decreased more than 2% (0.02) [ ]d) Uncontrolled bleeding [ ]XXI. Severe anemia indicated by ANY ONE of the following(78)(79): [ ]a) Altered mental status [ ]b) Chest pain [ ]c) Exertional dyspnea [ ]d) Syncope [ ]e) Other findings suggesting inadequate perfusion [ ]f) Treatment with transfusion or volume replacement is ineffective at resolving ANY ONE of the following [G]: [ ]i) Tachycardia for age [ ]ii) Orthostatic vital sign changes as indicated by ANY ONE of the following(80): [ ]1) Fall in SBP of 20 mm Hg or more 1 to 3 minutes after patient sits or stands from recumbent position [ ]2) Fall in DBP of 10 mm Hg or more 1 to 3 minutes after patient sits or stands from recumbent position [ ]XXII. High-risk low platelet count as indicated by ANY ONE of the following( 81)(82): [ ]a) Severe or life-threatening bleeding (eg, intracranial, major gastrointestinal, or extensive mucosal bleeding), with any reduced platelet count [ ]b) Platelet count less than 20,000/mm3 (20 x109/L) with any active bleeding [ ]c) Platelet count less than 10,000/mm3 (10 x109/L) with minor purpura or petechiae [ ]d) Platelet count less than 5000/mm3 (5 x109/L) [ ]e) Low platelet count with hemolytic anemia [ ]XXIII. Disseminated intravascular coagulation(77)(83) [ ]XXIV. Severe adverse drug or systemic toxin reaction requiring inpatient treatment; examples include(84)(85): [ ]a) Serotonin syndrome(86) [ ]b) Neuroleptic malignant syndrome(86) [ ]c) Cholinergic syndrome with severe symptoms (eg, bronchorrhea, weakness, mental status changes, seizures) [ ]d) Sympathetic syndrome with severe symptoms (eg, seizures, mental status changes, cardiac dysrhythmias) [ ]e) Anticholinergic syndrome [ ]XXV. Severe pain requiring acute inpatient management as indicated by ALL of the following (87)(88)(89): [ ]a) Continuous or frequent (eg, every 2 to 4 hours) parenteral analgesics required [H] [ ]b) Rapid improvement expected from treatment or acute intervention (eg, surgery, anesthesia procedure) [ ]XXVI.Severe behavioral health issues judged unmanageable at a lower level of care (eg, residential) in a patient who is ANY ONE of the following(91) [ ]a) Acutely suicidal [ ]b) A danger to self (eg, self-mutilating or suicidal behavior) [ ]c) A danger to others (eg, assaultive or homicidal behavior) [ ]d) Incapacitated because of grave disability (eg, inability to provide for self at lower level of care) (92) [ ]XXVII. Inpatient monitoring needed; examples include(1)(3)(87)(93)(94)(95)(96 ): [ ]a) Vital signs, neurologic signs, or vascular checks more frequently than every 4 hours [ ]b) Cardiac or respiratory monitoring beyond the scope (eg, over 24 hours) of observation care [ ]c) Pulmonary artery catheter monitoring [ ]d) Suspected compartment syndrome(97) (98) [ ]e) Cerebral bleeding, hydrocephalus, or vasospasm monitoring [ ]f) Increased intracranial pressure or cerebral edema monitoring [ ]g) monitoring [ ]XXVIII. Treatment requiring inpatient care; examples include: [ ]a) IV fluid to replace significant ongoing losses (greater than 3 L/m2 per day)(53) [ ]b) High concentration oxygen (greater than 40%)(33)(99)(100) [ ]c) Frequent respiratory therapy (more frequently than every 4 hours) to maintain airflow rates greater than 60% of baseline(33)(99)(100) [ ]d) Epidural analgesia(87) [ ]e) IV anticoagulation, vasoactive, or antiarrhythmic medication(19 )(23) [ ]f) Acute thrombolytics (generally require 24 hours of observation )(101)(102) [ ]XXIX. Emergency procedures needed; examples include: [ ]a) Emergency inpatient surgery [ ]b) Temporary pacemaker placement(103) [ ]c) Chest tube placement with active evacuation (eg, suction, drainage)(104) [ ]d) Emergent cardioversion(105) [ ]e) Emergent cardiac or vascular procedures (eg, cardiac catheterization, angioplasty) (17)(18) [ ]f) Emergent dialysis access placement and institution(10)(106) [ ]g) Emergent pericardiocentesis(107) [ ]h) Emergent plasmapheresis or leukapheresis(83) [ ]i) Emergent tracheostomy The original [employer] content created by [employer] has been revised. The portions of the content which have been revised are identified through the use of italic text or in bold, and [employer] has neither reviewed nor approved the modified material. All other unmodified content is copyright [employer]. Please see references footnoted in the original [employer] edition 2016 Admission Criteria Met: Yes
[2017-03-24] MEDS ORDERED: KETALAR ONE (20:15)
[2017-03-24] MEDS ORDERED: QUELICIN ONE (20:15)
[2017-03-24] MEDS ORDERED: VERSED IV ONE (20:15)
[2017-03-24] MEDS: fentaNYL DRIP Premix 2,000 MCG/100 ML BAG IV SCH (21:39)
[2017-03-25] MEDS: DIPRIVAN 10 MG/ML 1,000 MG/100 ML BOTTLE IV SCH ×3 (02:03→19:54)
[2017-03-25] MEDS: D5/0.45NS 1,000 ML IV SCH ×3 (02:15→19:55)
--- NOTE | 2017-03-25 02:38 | XRay Report ---
FINAL REPORT PROCEDURE: XR ABDOMEN 1V AP TECHNIQUE: Abdominal radiograph, single supine AP view. HISTORY: DHT COMPARISON: No prior studies are available for comparison. FINDINGS: Bowel gas pattern:Nonobstructive. Masses or calcifications:None. Bony structures:No significant abnormality. Other:The feeding tube ends in the distal stomach. IMPRESSION: The feeding tube ends in the distal stomach
[2017-03-25] MEDS: DUONEB *Not for PRN Use IH SCH ×4 (02:50→20:24)
[2017-03-25 06:20] LABS: ISTAT Base Excess -3; ISTAT HCO3 22.3; ISTAT PH 7.365 (7.35-7.45); ISTAT PO2 327 (80-105); ISTAT SO2 100; ISTAT TCO2 23
[2017-03-25] MEDS ORDERED: BENADRYL IV PRN (07:39)
[2017-03-25] MEDS: PEPCID IV SCH ×2 (09:43→21:31)
[2017-03-25] MEDS: NORVASC PO SCH (09:43)
[2017-03-25] MEDS: LOVENOX SUB-Q SCH (09:43)
[2017-03-25] MEDS: LOPRESSOR PO SCH (09:44)
[2017-03-25] MEDS: COREG PO SCH ×2 (09:44→21:31)
--- NOTE | 2017-03-25 09:50 | XRay Report ---
AP CHEST: HISTORY: Followup respiratory failure The endotracheal tube terminates 1 cm superior to the mike. A feeding tube is followed to the mid stomach. The lungs remain clear. Heart size is stable at the upper limits of normal. No acute process is demonstrated. IMPRESSION: No change.
[2017-03-25] MEDS: fentaNYL DRIP Premix 2,000 MCG/100 ML BAG IV SCH ×2 (10:28→22:15)
--- NOTE | 2017-03-25 13:45 | Progress Note ---
Assessment and Plan Assessment and plan: Acute hypoxic respiratory failure on mechanical ventilation less than 96 hours On general edema secondary to lisinopril use COPD Hypertension Acute kidney injury Rheumatoid arthritis - Patient is intubated and on mechanical ventilation - Discontinued lisinopril - On Solu-Medrol and Benadryl - Started on blood pressure medications - Patient is on IV fluid - Continue methotrexate DVT prophylaxis - Lovenox Disposition - Continue ICU care History Interval history: Patient was seen and evaluated this morning, patient is intubated, patient is alert and understands. Hospitalist Physical - Physical exam Narrative exam: Patient is intubated, she has swelling of the face and neck The patient is obese. Vital signs as documented. Head exam is unremarkable. No scleral icterus . Neck is without jugular venous distension, thyromegaly, or carotid bruits. Lungs are clear to auscultation. Cardiac exam reveals regular rate and Rhythm. First and second heart sounds normal. No murmurs, rubs or gallops. Abdominal exam reveals normal bowel sounds, no masses, no organomegaly and no aortic enlargement. Extremities are nonedematous and both femoral and pedal pulses are normal. CLIP RIVETER: Alert . - Constitutional Vitals: Temp Pulse Resp BP Pulse Ox 98.3 F 63 16 124/80 100 03/25/17 12:00 03/25/17 13:00 03/25/17 13:00 03/25/17 13:00 03/25/17 13:00 General appearance: Present: severe distress, well-nourished Results - Labs CBC & Chem 7: 03/24/17 12:05 03/24/17 12:05 Labs: Laboratory Last Values WBC 8.6 K/mm3 (4.5-11.0) 03/24/17 12:05 RBC 5.07 M/mm3 (3.65-5.03) H 03/24/17 12:05 Hgb 11.5 gm/dl (10.1-14.3) 03/24/17 12:05 Hct 35.5 % (30.3-42.9) 03/24/17 12:05 MCV 70 fl (79-97) L 03/24/17 12:05 MCH 23 pg (28-32) L 03/24/17 12:05 MCHC 33 % (30-34) 03/24/17 12:05 RDW 17.1 % (13.2-15.2) H 03/24/17 12:05 Plt Count 127 K/mm3 (140-440) L 03/24/17 12:05 Lymph % (Auto) 46.1 % (13.4-35.0) H 03/24/17 12:05 [place] % (Auto) 9.2 % (0.0-7.3) H 03/24/17 12:05 Eos % (Auto) 6.2 % (0.0-4.3) H 03/24/17 12:05 Baso % (Auto) 0.7 % (0.0-1.8) 03/24/17 12:05 Lymph # 4.0 K/mm3 (1.2-5.4) 03/24/17 12:05 [place] # 0.8 K/mm3 (0.0-0.8) 03/24/17 12:05 Eos # 0.5 K/mm3 (0.0-0.4) H 03/24/17 12:05 Baso # 0.1 K/mm3 (0.0-0.1) 03/24/17 12:05 Seg Neutrophils % 37.8 % (40.0-70.0) L 03/24/17 12:05 Seg Neutrophils # 3.2 K/mm3 (1.8-7.7) 03/24/17 12:05 POC ABG pH 7.365 (7.35-7.45) 03/25/17 04:45 POC ABG pCO2 39.0 (35-45) 03/25/17 04:45 POC ABG pO2 327 (80-105) H 03/25/17 04:45 POC ABG HCO3 22.3 03/25/17 04:45 POC ABG Total CO2 23 03/25/17 04:45 POC ABG O2 Sat 100 03/25/17 04:45 POC ABG Base Excess -3 03/25/17 04:45 FiO2 60 % 03/25/17 04:45 Sodium 143 mmol/L (137-145) 03/24/17 12:05 Potassium 5.0 mmol/L (3.6-5.0) 03/24/17 12:05 Chloride 104.6 mmol/L (98-107) 03/24/17 12:05 Carbon Dioxide 23 mmol/L (22-30) 03/24/17 12:05 Anion Gap 20 mmol/L 03/24/17 12:05 BUN 26 mg/dL (7-17) H 03/24/17 12:05 Creatinine 1.6 mg/dL (0.7-1.2) H 03/24/17 12:05 Estimated GFR 42 ml/min 03/24/17 12:05 BUN/Creatinine Ratio 16.25 % 03/24/17 12:05 Glucose 97 mg/dL (65-100) 03/24/17 12:05 Calcium 8.8 mg/dL (8.4-10.2) 03/24/17 12:05 Magnesium 2.70 mg/dL (1.7-2.3) H 03/24/17 12:05 Total Bilirubin 0.30 mg/dL (0.1-1.2) 03/24/17 12:05 Direct Bilirubin 0.2 mg/dL (0-0.2) 03/24/17 12:05 AST 20 units/L (5-40) 03/24/17 12:05 ALT 11 units/L (7-56) 03/24/17 12:05 Alkaline Phosphatase 78 units/L (35-129) 03/24/17 12:05 Total Protein 8.6 g/dL (6.3-8.2) H 03/24/17 12:05 Albumin 4.0 g/dL (3.9-5) 03/24/17 12:05 Albumin/Globulin Ratio 0.9 % 03/24/17 12:05
--- NOTE | 2017-03-25 15:46 | Progress Note ---
Assessment and Plan - Patient Problems (1) Acute respiratory failure Current Visit: Yes Status: Acute Qualifiers: Respiratory failure complication: hypoxia Qualified Code(s): J96.01 - Acute respiratory failure with hypoxia Plan to address problem: - continue bronchodilators and pulmonary toilet - continue aspiration precautions / VAP bundle - continue to wean oxygen for sats > 94% - continue PPI antihistamine therapy as well as systemic steroids for angioedema - follow off Antibiotics (2) Angioedema Current Visit: Yes Status: Acute Qualifiers: Encounter type: initial encounter Qualified Code(s): T78.3XXA - Angioneurotic edema, initial encounter Plan to address problem: - as above - schedule benadryl also (Still with equivocal cuff leak test) (3) Anxiety Current Visit: Yes Status: Acute Plan to address problem: - schedule seroquel - prn ativan (4) Obesity (BMI 30-39.9) Current Visit: Yes Status: Acute Plan to address problem: - weight loss +/- sleep clinic evaluation at discharge (5) Discharge planning issues Current Visit: Yes Status: Acute Plan to address problem: - resume weaning trials via PSV in am .......she remains critically ill on life sustaining interventions including MVS and at high risk for further deterioration including 35' CCT Subjective Date of service: 03/25/17 Principal diagnosis: Acute Hypoxemic Respiratory Failure; Angioedema Interval history: Seen and examined at bedside; 24 hour events reviewed; nursing and respiratory care staff consulted; no adverse overnight events reported to me; did not tolerate weaning trial secondary to what seems to also be a anxiety element; hemodynamically stable otherwise; denies acute chest pains or increased SOB; tolerating tube feeds Objective Vital Signs - 12hr 03/25/17 03/25/17 03/25/17 03:51 04:00 04:11 Temperature 98.8 F Pulse Rate 63 61 63 Pulse Rate [ Anterior Bilateral Throughout] Pulse Rate [ 64 From Monitor] Respiratory 16 16 16 Rate Respiratory Rate [Anterior Bilateral Throughout] Blood Pressure 120/72 114/74 114/74 O2 Sat by Pulse 100 100 100 Oximetry 03/25/17 03/25/17 03/25/17 04:20 04:30 04:41 Temperature Pulse Rate 64 76 60 Pulse Rate [ Anterior Bilateral Throughout] Pulse Rate [ From Monitor] Respiratory 16 20 16 Rate Respiratory Rate [Anterior Bilateral Throughout] Blood Pressure 114/74 128/91 128/91 O2 Sat by Pulse 100 100 99 Oximetry 03/25/17 03/25/17 03/25/17 04:47 04:51 05:00 Temperature Pulse Rate 64 61 61 Pulse Rate [ Anterior Bilateral Throughout] Pulse Rate [ From Monitor] Respiratory 16 16 Rate Respiratory Rate [Anterior Bilateral Throughout] Blood Pressure 128/91 128/91 136/82 O2 Sat by Pulse 99 100 100 Oximetry 03/25/17 03/25/17 03/25/17 05:11 05:21 05:30 Temperature Pulse Rate 63 73 74 Pulse Rate [ Anterior Bilateral Throughout] Pulse Rate [ From Monitor] Respiratory 16 16 16 Rate Respiratory Rate [Anterior Bilateral Throughout] Blood Pressure 136/82 136/82 129/81 O2 Sat by Pulse 99 100 100 Oximetry 03/25/17 03/25/17 03/25/17 05:41 05:51 06:01 Temperature Pulse Rate 74 73 62 Pulse Rate [ Anterior Bilateral Throughout] Pulse Rate [ From Monitor] Respiratory 16 16 16 Rate Respiratory Rate [Anterior Bilateral Throughout] Blood Pressure 129/81 129/81 117/70 O2 Sat by Pulse 100 100 100 Oximetry 03/25/17 03/25/17 03/25/17 06:11 06:21 06:30 Temperature Pulse Rate 60 60 62 Pulse Rate [ Anterior Bilateral Throughout] Pulse Rate [ From Monitor] Respiratory 16 16 16 Rate Respiratory Rate [Anterior Bilateral Throughout] Blood Pressure 117/70 117/70 123/80 O2 Sat by Pulse 100 100 100 Oximetry 03/25/17 03/25/17 03/25/17 06:41 06:51 07:00 Temperature Pulse Rate 60 73 62 Pulse Rate [ Anterior Bilateral Throughout] Pulse Rate [ From Monitor] Respiratory 16 16 16 Rate Respiratory Rate [Anterior Bilateral Throughout] Blood Pressure 123/80 123/80 143/86 O2 Sat by Pulse 100 100 100 Oximetry 03/25/17 03/25/17 03/25/17 07:11 07:21 07:30 Temperature Pulse Rate 61 70 76 Pulse Rate [ Anterior Bilateral Throughout] Pulse Rate [ From Monitor] Respiratory 16 19 16 Rate Respiratory Rate [Anterior Bilateral Throughout] Blood Pressure 143/86 143/86 134/86 O2 Sat by Pulse 100 100 100 Oximetry 03/25/17 03/25/17 03/25/17 07:37 07:41 07:43 Temperature Pulse Rate 76 60 Pulse Rate [ 86 Anterior Bilateral Throughout] Pulse Rate [ From Monitor] Respiratory 16 Rate Respiratory 23 Rate [Anterior Bilateral Throughout] Blood Pressure 134/86 134/86 O2 Sat by Pulse 100 100 Oximetry 03/25/17 03/25/17 03/25/17 07:51 07:52 08:00 Temperature 97.6 F Pulse Rate 65 62 Pulse Rate [ Anterior Bilateral Throughout] Pulse Rate [ From Monitor] Respiratory 16 16 Rate Respiratory Rate [Anterior Bilateral Throughout] Blood Pressure 134/86 144/83 O2 Sat by Pulse 100 100 Oximetry 03/25/17 03/25/17 03/25/17 08:11 08:21 08:30 Temperature Pulse Rate 62 64 63 Pulse Rate [ Anterior Bilateral Throughout] Pulse Rate [ From Monitor] Respiratory 16 16 16 Rate Respiratory Rate [Anterior Bilateral Throughout] Blood Pressure 144/83 144/83 153/78 O2 Sat by Pulse 100 100 100 Oximetry 03/25/17 03/25/17 03/25/17 08:41 08:45 08:51 Temperature Pulse Rate 68 73 Pulse Rate [ 71 Anterior Bilateral Throughout] Pulse Rate [ From Monitor] Respiratory 16 16 Rate Respiratory 16 Rate [Anterior Bilateral Throughout] Blood Pressure 153/78 153/78 O2 Sat by Pulse 100 100 Oximetry 03/25/17 03/25/17 03/25/17 09:00 09:11 09:21 Temperature Pulse Rate 74 64 65 Pulse Rate [ Anterior Bilateral Throughout] Pulse Rate [ From Monitor] Respiratory 16 16 16 Rate Respiratory Rate [Anterior Bilateral Throughout] Blood Pressure 151/82 153/78 153/78 O2 Sat by Pulse 100 100 100 Oximetry 03/25/17 03/25/17 03/25/17 09:31 09:41 09:43 Temperature Pulse Rate 64 90 69 Pulse Rate [ Anterior Bilateral Throughout] Pulse Rate [ From Monitor] Respiratory 16 15 Rate Respiratory Rate [Anterior Bilateral Throughout] Blood Pressure 131/77 151/82 131/77 O2 Sat by Pulse 99 100 Oximetry 03/25/17 03/25/17 03/25/17 09:44 09:51 10:00 Temperature Pulse Rate 68 63 58 L Pulse Rate [ Anterior Bilateral Throughout] Pulse Rate [ From Monitor] Respiratory 16 16 Rate Respiratory Rate [Anterior Bilateral Throughout] Blood Pressure 131/77 151/82 135/76 O2 Sat by Pulse 100 100 Oximetry 03/25/17 03/25/17 03/25/17 10:11 10:21 10:30 Temperature Pulse Rate 64 61 59 L Pulse Rate [ Anterior Bilateral Throughout] Pulse Rate [ From Monitor] Respiratory 17 16 16 Rate Respiratory Rate [Anterior Bilateral Throughout] Blood Pressure 135/76 135/76 129/72 O2 Sat by Pulse 100 100 100 Oximetry 03/25/17 03/25/17 03/25/17 10:41 10:51 11:00 Temperature Pulse Rate 59 L 58 L 67 Pulse Rate [ Anterior Bilateral Throughout] Pulse Rate [ From Monitor] Respiratory 16 16 16 Rate Respiratory Rate [Anterior Bilateral Throughout] Blood Pressure 129/72 129/72 127/76 O2 Sat by Pulse 100 100 100 Oximetry 03/25/17 03/25/17 03/25/17 11:11 11:21 11:30 Temperature Pulse Rate 63 59 L 59 L Pulse Rate [ Anterior Bilateral Throughout] Pulse Rate [ From Monitor] Respiratory 16 16 16 Rate Respiratory Rate [Anterior Bilateral Throughout] Blood Pressure 127/76 127/76 123/78 O2 Sat by Pulse 100 100 100 Oximetry 03/25/17 03/25/17 03/25/17 11:41 11:51 12:00 Temperature 98.3 F Pulse Rate 68 61 63 Pulse Rate [ Anterior Bilateral Throughout] Pulse Rate [ From Monitor] Respiratory 18 17 16 Rate Respiratory Rate [Anterior Bilateral Throughout] Blood Pressure 123/78 123/78 140/84 O2 Sat by Pulse 100 100 100 Oximetry 03/25/17 03/25/17 03/25/17 12:11 12:21 12:31 Temperature Pulse Rate 61 60 62 Pulse Rate [ Anterior Bilateral Throughout] Pulse Rate [ From Monitor] Respiratory 16 16 16 Rate Respiratory Rate [Anterior Bilateral Throughout] Blood Pressure 140/84 140/84 121/74 O2 Sat by Pulse 100 100 100 Oximetry 03/25/17 03/25/17 03/25/17 12:41 12:51 13:00 Temperature Pulse Rate 63 61 63 Pulse Rate [ Anterior Bilateral Throughout] Pulse Rate [ From Monitor] Respiratory 16 16 16 Rate Respiratory Rate [Anterior Bilateral Throughout] Blood Pressure 121/74 121/74 124/80 O2 Sat by Pulse 100 100 100 Oximetry 03/25/17 03/25/17 03/25/17 13:11 13:21 13:31 Temperature Pulse Rate 83 66 102 H Pulse Rate [ Anterior Bilateral Throughout] Pulse Rate [ From Monitor] Respiratory 20 18 28 H Rate Respiratory Rate [Anterior Bilateral Throughout] Blood Pressure 121/74 121/74 155/99 O2 Sat by Pulse 100 100 100 Oximetry 03/25/17 03/25/17 03/25/17 13:41 13:47 13:51 Temperature Pulse Rate 76 63 Pulse Rate [ 80 Anterior Bilateral Throughout] Pulse Rate [ From Monitor] Respiratory 18 16 Rate Respiratory 24 Rate [Anterior Bilateral Throughout] Blood Pressure 155/99 155/99 O2 Sat by Pulse 100 100 Oximetry 03/25/17 03/25/17 03/25/17 14:00 14:01 14:11 Temperature Pulse Rate 60 60 Pulse Rate [ Anterior Bilateral Throughout] Pulse Rate [ From Monitor] Respiratory 16 16 Rate Respiratory Rate [Anterior Bilateral Throughout] Blood Pressure 144/74 144/74 O2 Sat by Pulse 100 100 100 Oximetry 03/25/17 03/25/17 03/25/17 14:21 14:30 14:41 Temperature Pulse Rate 62 61 124 H Pulse Rate [ Anterior Bilateral Throughout] Pulse Rate [ From Monitor] Respiratory 16 16 33 H Rate Respiratory Rate [Anterior Bilateral Throughout] Blood Pressure 144/74 135/81 135/81 O2 Sat by Pulse 100 100 100 Oximetry 03/25/17 03/25/17 03/25/17 14:51 15:25 15:33 Temperature Pulse Rate 61 65 Pulse Rate [ 82 Anterior Bilateral Throughout] Pulse Rate [ From Monitor] Respiratory 16 Rate Respiratory 24 Rate [Anterior Bilateral Throughout] Blood Pressure 135/81 134/77 O2 Sat by Pulse 100 100 Oximetry Constitutional: no acute distress, other (sedated) Eyes: non-icteric ENT: oropharynx moist Neck: supple, no lymphadenopathy Effort: mildly labored Ascultation: Bilateral: rhonchi Cardiovascular: regular rate and rhythm Gastrointestinal: normoactive bowel sounds, soft, non-tender, non-distended Integumentary: normal Extremities: no cyanosis, no edema, pulses normal, no ischemia or petechiae Neurologic: normal mental status, non-focal exam, pupils equal and round, motor strength normal and Psychiatric: mood appropriate CBC and BMP: 03/27/17 05:23 03/27/17 05:23 ABG, PT/INR, D-dimer: ABG POC ABG pH 7.365 (7.35-7.45) 03/25/17 04:45 POC ABG pCO2 39.0 (35-45) 03/25/17 04:45 POC ABG pO2 327 (80-105) H 03/25/17 04:45 POC ABG HCO3 22.3 03/25/17 04:45 POC ABG Total CO2 23 03/25/17 04:45 POC ABG O2 Sat 100 03/25/17 04:45 Abnormal lab findings: Abnormal Labs 03/25/17 04:45 POC ABG pO2 327 H Chest x-ray: image reviewed
--- NOTE | 2017-03-25 19:41 | XRay Report ---
FINAL REPORT PROCEDURE: Abdomen. TECHNIQUE: Portable AP view. HISTORY: Feeding tube placement. COMPARISON: Abdomen 03/24/2017. FINDINGS: The bowel gas pattern is normal as far as visualized. There is a Dobhoff tube that terminates approximately in the 1st portion of the duodenum. The soft tissues are unremarkable. The regional skeleton appears intact. IMPRESSION: Satisfactory Dobhoff tube placement.
[2017-03-26] MEDS: DUONEB *Not for PRN Use IH SCH ×4 (01:42→19:39)
[2017-03-26] MEDS: DIPRIVAN 10 MG/ML 1,000 MG/100 ML BOTTLE IV SCH ×2 (04:10→14:00)
[2017-03-26] MEDS: fentaNYL DRIP Premix 2,000 MCG/100 ML BAG IV SCH ×2 (04:11→14:01)
[2017-03-26] MEDS: D5/0.45NS 1,000 ML IV SCH ×2 (05:23→14:01)
--- NOTE | 2017-03-26 07:17 | XRay Report ---
AP CHEST: HISTORY: Followup respiratory failure Compared to 03/25/17. The endotracheal tube terminates within 1 cm of the mike, consider retraction. The feeding tube remains in the same position. There is adequate bilateral pulmonary inflation. The lungs are clear. Borderline heart size with normal pulmonary vascularity are stable. IMPRESSION: No change. Recommend retraction of the endotracheal tube.
[2017-03-26 07:41] LABS: Hematocrit 30.9 % (30.3-42.9); Hemoglobin 9.8 gm/dl (10.1-14.3); Mean Corpuscular HGB Conc 32 % (30-34); Mean Corpuscular Volume 70 fl (79-97); Red Blood Count 4.41 M/mm3 (3.65-5.03); Red Cell Distribution Width 16.7 % (13.2-15.2); White Blood Count 15.3 K/mm3 (4.5-11.0)
[2017-03-26 07:46] LABS: BUN/Creatinine Ratio 18.66; Potassium 5.4 mmol/L (3.6-5.0)
[2017-03-26 07:47] LABS: Mean Corpuscular Hemoglobin 22 pg (28-32)
[2017-03-26 09:20] LABS: Platelet Count 104 K/mm3 (140-440)
[2017-03-26] MEDS ORDERED: SODIUM BICARBONATE FEEDTUBE PRN (10:35)
[2017-03-26] MEDS ORDERED: SIMPLE SYRUP FEEDTUBE PRN ×2 (10:35)
[2017-03-26] MEDS ORDERED: PANCREAZE DR 10,500 UNIT FEEDTUBE PRN (10:35)
[2017-03-26] MEDS: PEPCID IV SCH ×2 (11:54→22:37)
[2017-03-26] MEDS: LOVENOX SUB-Q SCH (11:55)
[2017-03-26] MEDS: NORVASC PO SCH (11:57)
[2017-03-26] MEDS: COREG PO SCH ×2 (11:58→22:37)
--- NOTE | 2017-03-26 12:32 | Progress Note ---
Assessment and Plan (1) Acute respiratory failure Current Visit: Yes Status: Acute Qualifiers: Respiratory failure complication: hypoxia Qualified Code(s): J96.01 - Acute respiratory failure with hypoxia Plan to address problem: - we will continue bronchodilators and pulmonary toilet - continue aspiration precautions / VAP bundle - continue to wean oxygen for sats > 94% - we will continue PPI antihistamine therapy as well as systemic steroids for angioedema - continue to follow off Antibiotics (2) Angioedema Current Visit: Yes Status: Acute Qualifiers: Encounter type: initial encounter Qualified Code(s): T78.3XXA - Angioneurotic edema, initial encounter Plan to address problem: - as above - schedule benadryl also (Still with equivocal cuff leak test) (3) Anxiety Current Visit: Yes Status: Acute Plan to address problem: - scheduled seroquel - prn ativan (4) Obesity (BMI 30-39.9) Current Visit: Yes Status: Acute Plan to address problem: - weight loss +/- sleep clinic evaluation at discharge (5) Discharge planning issues Current Visit: Yes Status: Acute Plan to address problem: - resume weaning trials via PSV in am .......she remains critically ill on life sustaining interventions including MVS and at high risk for further deterioration including 30' CCT Subjective Date of service: 03/26/17 Principal diagnosis: Acute Hypoxemic Respiratory Failure; Angioedema Interval history: Seen and examined at bedside; 24 hour events reviewed; nursing and respiratory care staff consulted; no adverse overnight events reported to me; noemialessadnra on MVS ; did not tolerate weaning well today; no emesis or overt aspiration and no gross bleeding; states that she still feels tight in her throat; tolerating tube feeds Objective Vital Signs - 12hr 03/26/17 03/26/17 03/26/17 00:35 00:41 00:51 Temperature Pulse Rate 66 67 70 Pulse Rate [ Anterior Bilateral Throughout] Respiratory 16 16 Rate Respiratory Rate [Anterior Bilateral Throughout] Blood Pressure 118/79 125/79 125/79 O2 Sat by Pulse 100 100 100 Oximetry 03/26/17 03/26/17 03/26/17 01:00 01:11 01:21 Temperature Pulse Rate 74 78 79 Pulse Rate [ Anterior Bilateral Throughout] Respiratory 16 16 16 Rate Respiratory Rate [Anterior Bilateral Throughout] Blood Pressure 114/77 114/77 114/77 O2 Sat by Pulse 100 100 100 Oximetry 03/26/17 03/26/17 03/26/17 01:30 01:41 01:43 Temperature Pulse Rate 74 67 Pulse Rate [ 71 Anterior Bilateral Throughout] Respiratory 16 16 Rate Respiratory 16 Rate [Anterior Bilateral Throughout] Blood Pressure 118/79 118/79 O2 Sat by Pulse 99 100 Oximetry 03/26/17 03/26/17 03/26/17 01:51 01:53 02:00 Temperature Pulse Rate 62 66 Pulse Rate [ 73 Anterior Bilateral Throughout] Respiratory 16 16 Rate Respiratory 18 Rate [Anterior Bilateral Throughout] Blood Pressure 118/79 111/73 O2 Sat by Pulse 100 100 Oximetry 03/26/17 03/26/17 03/26/17 02:11 02:21 02:30 Temperature Pulse Rate 66 64 64 Pulse Rate [ Anterior Bilateral Throughout] Respiratory 16 16 16 Rate Respiratory Rate [Anterior Bilateral Throughout] Blood Pressure 111/73 111/73 114/70 O2 Sat by Pulse 100 100 100 Oximetry 03/26/17 03/26/17 03/26/17 02:41 02:51 03:00 Temperature Pulse Rate 68 70 66 Pulse Rate [ Anterior Bilateral Throughout] Respiratory 16 16 16 Rate Respiratory Rate [Anterior Bilateral Throughout] Blood Pressure 114/70 114/70 109/71 O2 Sat by Pulse 100 100 100 Oximetry 03/26/17 03/26/17 03/26/17 03:11 03:21 03:30 Temperature Pulse Rate 75 72 76 Pulse Rate [ Anterior Bilateral Throughout] Respiratory 16 16 19 Rate Respiratory Rate [Anterior Bilateral Throughout] Blood Pressure 109/71 109/71 119/73 O2 Sat by Pulse 100 100 100 Oximetry 03/26/17 03/26/17 03/26/17 03:41 03:51 04:00 Temperature 99.3 F Pulse Rate 74 75 72 Pulse Rate [ Anterior Bilateral Throughout] Respiratory 16 16 16 Rate Respiratory Rate [Anterior Bilateral Throughout] Blood Pressure 119/73 119/73 121/76 O2 Sat by Pulse 100 100 100 Oximetry 03/26/17 03/26/17 03/26/17 04:11 04:20 04:21 Temperature Pulse Rate 74 71 76 Pulse Rate [ Anterior Bilateral Throughout] Respiratory 16 16 Rate Respiratory Rate [Anterior Bilateral Throughout] Blood Pressure 121/76 121/76 121/76 O2 Sat by Pulse 100 100 100 Oximetry 03/26/17 03/26/17 03/26/17 04:30 04:41 04:51 Temperature Pulse Rate 74 78 82 Pulse Rate [ Anterior Bilateral Throughout] Respiratory 16 16 16 Rate Respiratory Rate [Anterior Bilateral Throughout] Blood Pressure 116/75 116/75 116/75 O2 Sat by Pulse 100 100 100 Oximetry 03/26/17 03/26/17 03/26/17 05:00 05:11 05:21 Temperature Pulse Rate 82 78 72 Pulse Rate [ Anterior Bilateral Throughout] Respiratory 16 16 16 Rate Respiratory Rate [Anterior Bilateral Throughout] Blood Pressure 125/82 125/82 125/82 O2 Sat by Pulse 100 100 100 Oximetry 03/26/17 03/26/17 03/26/17 05:30 05:41 05:51 Temperature Pulse Rate 66 65 69 Pulse Rate [ Anterior Bilateral Throughout] Respiratory 17 16 16 Rate Respiratory Rate [Anterior Bilateral Throughout] Blood Pressure 121/73 121/73 121/73 O2 Sat by Pulse 100 100 100 Oximetry 03/26/17 03/26/17 03/26/17 06:00 06:11 06:21 Temperature Pulse Rate 68 65 68 Pulse Rate [ Anterior Bilateral Throughout] Respiratory 16 16 16 Rate Respiratory Rate [Anterior Bilateral Throughout] Blood Pressure 112/77 112/77 112/77 O2 Sat by Pulse 100 100 100 Oximetry 03/26/17 03/26/17 03/26/17 06:30 06:41 06:51 Temperature Pulse Rate 74 70 80 Pulse Rate [ Anterior Bilateral Throughout] Respiratory 16 16 16 Rate Respiratory Rate [Anterior Bilateral Throughout] Blood Pressure 127/82 112/77 112/77 O2 Sat by Pulse 100 100 100 Oximetry 03/26/17 03/26/17 03/26/17 07:00 07:11 07:16 Temperature 98.3 F Pulse Rate 69 69 Pulse Rate [ Anterior Bilateral Throughout] Respiratory 17 19 Rate Respiratory Rate [Anterior Bilateral Throughout] Blood Pressure 130/77 127/82 O2 Sat by Pulse 100 100 Oximetry 03/26/17 03/26/17 03/26/17 07:21 07:31 07:41 Temperature Pulse Rate 77 69 65 Pulse Rate [ Anterior Bilateral Throughout] Respiratory 24 15 16 Rate Respiratory Rate [Anterior Bilateral Throughout] Blood Pressure 127/82 117/58 117/58 O2 Sat by Pulse 100 100 100 Oximetry 03/26/17 03/26/17 03/26/17 07:51 08:00 08:11 Temperature Pulse Rate 62 87 61 Pulse Rate [ Anterior Bilateral Throughout] Respiratory 17 28 H 16 Rate Respiratory Rate [Anterior Bilateral Throughout] Blood Pressure 117/58 140/94 140/94 O2 Sat by Pulse 100 100 100 Oximetry 03/26/17 03/26/17 03/26/17 08:21 08:30 08:31 Temperature Pulse Rate 62 61 73 Pulse Rate [ Anterior Bilateral Throughout] Respiratory 17 12 Rate Respiratory Rate [Anterior Bilateral Throughout] Blood Pressure 140/94 140/94 155/89 O2 Sat by Pulse 100 100 100 Oximetry 03/26/17 03/26/17 03/26/17 08:39 08:41 08:43 Temperature Pulse Rate 77 101 H Pulse Rate [ 73 Anterior Bilateral Throughout] Respiratory 26 H 31 H Rate Respiratory 28 H Rate [Anterior Bilateral Throughout] Blood Pressure 155/89 155/89 O2 Sat by Pulse 100 100 Oximetry 03/26/17 03/26/17 03/26/17 08:51 08:54 09:00 Temperature Pulse Rate 61 78 61 Pulse Rate [ Anterior Bilateral Throughout] Respiratory 18 15 Rate Respiratory Rate [Anterior Bilateral Throughout] Blood Pressure 155/89 155/89 156/85 O2 Sat by Pulse 100 100 100 Oximetry 03/26/17 03/26/17 03/26/17 11:03 11:57 11:58 Temperature Pulse Rate 64 87 72 Pulse Rate [ Anterior Bilateral Throughout] Respiratory 26 H Rate Respiratory Rate [Anterior Bilateral Throughout] Blood Pressure 130/73 127/107 127/102 O2 Sat by Pulse 100 Oximetry Constitutional: no acute distress, other (sedated) Eyes: non-icteric ENT: oropharynx moist Neck: supple, no lymphadenopathy Effort: mildly labored Ascultation: Bilateral: rhonchi Cardiovascular: regular rate and rhythm Gastrointestinal: normoactive bowel sounds, soft, non-tender, non-distended Integumentary: normal Extremities: no cyanosis, no edema, pulses normal, no ischemia or petechiae Neurologic: normal mental status, non-focal exam, pupils equal and round, motor strength normal and Psychiatric: anxious CBC and BMP: 03/27/17 05:23 03/27/17 05:23 ABG, PT/INR, D-dimer: ABG POC ABG pH 7.365 (7.35-7.45) 03/25/17 04:45 POC ABG pCO2 39.0 (35-45) 03/25/17 04:45 POC ABG pO2 327 (80-105) H 03/25/17 04:45 POC ABG HCO3 22.3 03/25/17 04:45 POC ABG Total CO2 23 03/25/17 04:45 POC ABG O2 Sat 100 03/25/17 04:45 Abnormal lab findings: Abnormal Labs 03/25/17 03/26/17 03/26/17 04:45 06:30 06:30 WBC 15.3 H Hgb 9.8 L MCV 70 L MCH 22 L RDW 16.7 H Plt Count 104 L Lymph % (Auto) 5.7 L [place] % (Auto) 7.5 H Lymph # 0.9 L [place] # 1.2 H Seg Neutrophils % 86.8 H Seg Neutrophils # 13.3 H POC ABG pO2 327 H Potassium 5.4 H Carbon Dioxide 19 L BUN 28 H Creatinine 1.5 H Glucose 122 H Calcium 8.0 L Chest x-ray: image reviewed
[2017-03-26] MEDS: ZOFRAN IV PRN (15:20)
[2017-03-26] MEDS: BENADRYL IV SCH ×2 (15:26→18:36)
--- NOTE | 2017-03-26 15:42 | Progress Note ---
Assessment and Plan Assessment and plan: Acute hypoxic respiratory failure on mechanical ventilation less than 96 hours On general edema secondary to lisinopril use COPD Hypertension Acute kidney injury Rheumatoid arthritis - Patient is intubated and on mechanical ventilation - Discontinued lisinopril - On Solu-Medrol and Benadryl - Started on blood pressure medications - Patient is on IV fluid - Continue methotrexate DVT prophylaxis - Lovenox Disposition - Continue ICU care History Interval history: Patient was seen and evaluated this morning, patient is intubated, patient is alert and understands. The swelling around the neck decrease in size. Hospitalist Physical - Physical exam Narrative exam: Patient is intubated, she has swelling of the face and neck but improved from yesterday. The patient is obese. Vital signs as documented. Head exam is unremarkable. No scleral icterus . Neck is without jugular venous distension, thyromegaly, or carotid bruits. Lungs are clear to auscultation. Cardiac exam reveals regular rate and Rhythm. First and second heart sounds normal. No murmurs, rubs or gallops. Abdominal exam reveals normal bowel sounds, no masses, no organomegaly and no aortic enlargement. Extremities are nonedematous and both femoral and pedal pulses are normal. 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 - Constitutional Vitals: Temp Pulse Resp BP Pulse Ox 98.0 F 65 25 H 159/85 100 03/26/17 12:20 03/26/17 15:23 03/26/17 15:09 03/26/17 15:23 03/26/17 15:23 General appearance: Present: severe distress, well-nourished Results - Labs CBC & Chem 7: 03/26/17 06:30 03/26/17 06:30 Labs: Laboratory Last Values WBC 15.3 K/mm3 (4.5-11.0) H 03/26/17 06:30 RBC 4.41 M/mm3 (3.65-5.03) 03/26/17 06:30 Hgb 9.8 gm/dl (10.1-14.3) L 03/26/17 06:30 Hct 30.9 % (30.3-42.9) 03/26/17 06:30 MCV 70 fl (79-97) L 03/26/17 06:30 MCH 22 pg (28-32) L 03/26/17 06:30 MCHC 32 % (30-34) 03/26/17 06:30 RDW 16.7 % (13.2-15.2) H 03/26/17 06:30 Plt Count 104 K/mm3 (140-440) L 03/26/17 06:30 Lymph % (Auto) 5.7 % (13.4-35.0) L 03/26/17 06:30 [place] % (Auto) 7.5 % (0.0-7.3) H 03/26/17 06:30 Eos % (Auto) 0.0 % (0.0-4.3) 03/26/17 06:30 Baso % (Auto) 0.0 % (0.0-1.8) 03/26/17 06:30 Lymph # 0.9 K/mm3 (1.2-5.4) L 03/26/17 06:30 [place] # 1.2 K/mm3 (0.0-0.8) H 03/26/17 06:30 Eos # 0.0 K/mm3 (0.0-0.4) 03/26/17 06:30 Baso # 0.0 K/mm3 (0.0-0.1) 03/26/17 06:30 Seg Neutrophils % 86.8 % (40.0-70.0) H 03/26/17 06:30 Seg Neutrophils # 13.3 K/mm3 (1.8-7.7) H 03/26/17 06:30 POC ABG pH 7.365 (7.35-7.45) 03/25/17 04:45 POC ABG pCO2 39.0 (35-45) 03/25/17 04:45 POC ABG pO2 327 (80-105) H 03/25/17 04:45 POC ABG HCO3 22.3 03/25/17 04:45 POC ABG Total CO2 23 03/25/17 04:45 POC ABG O2 Sat 100 03/25/17 04:45 POC ABG Base Excess -3 03/25/17 04:45 FiO2 60 % 03/25/17 04:45 Sodium 137 mmol/L (137-145) 03/26/17 06:30 Potassium 5.4 mmol/L (3.6-5.0) H 03/26/17 06:30 Chloride 104.0 mmol/L (98-107) 03/26/17 06:30 Carbon Dioxide 19 mmol/L (22-30) L 03/26/17 06:30 Anion Gap 19 mmol/L 03/26/17 06:30 BUN 28 mg/dL (7-17) H 03/26/17 06:30 Creatinine 1.5 mg/dL (0.7-1.2) H 03/26/17 06:30 Estimated GFR 45 ml/min 03/26/17 06:30 BUN/Creatinine Ratio 18.66 % 03/26/17 06:30 Glucose 122 mg/dL (65-100) H 03/26/17 06:30 Calcium 8.0 mg/dL (8.4-10.2) L 03/26/17 06:30 Magnesium 2.70 mg/dL (1.7-2.3) H 03/24/17 12:05 Total Bilirubin 0.30 mg/dL (0.1-1.2) 03/24/17 12:05 Direct Bilirubin 0.2 mg/dL (0-0.2) 03/24/17 12:05 AST 20 units/L (5-40) 03/24/17 12:05 ALT 11 units/L (7-56) 03/24/17 12:05 Alkaline Phosphatase 78 units/L (35-129) 03/24/17 12:05 Total Protein 8.6 g/dL (6.3-8.2) H 03/24/17 12:05 Albumin 4.0 g/dL (3.9-5) 03/24/17 12:05 Albumin/Globulin Ratio 0.9 % 03/24/17 12:05
[2017-03-27] MEDS: BENADRYL IV SCH ×4 (00:17→18:17)
[2017-03-27] MEDS: D5/0.45NS 1,000 ML IV SCH ×2 (00:18→11:09)
[2017-03-27] MEDS: DUONEB *Not for PRN Use IH SCH ×4 (02:55→19:42)
[2017-03-27] MEDS: fentaNYL DRIP Premix 2,000 MCG/100 ML BAG IV SCH ×2 (04:31→21:35)
[2017-03-27 06:23] LABS: BUN/Creatinine Ratio 21.42; Calcium 7.9 mg/dL (8.4-10.2); Chloride 106.2 mmol/L (98-107)
[2017-03-27 06:31] LABS: ISTAT Base Excess -6; ISTAT HCO3 19.8; ISTAT PCO2 36.3 (35-45); ISTAT PH 7.344 (7.35-7.45); ISTAT PO2 135 (80-105); ISTAT SO2 99; ISTAT TCO2 21
[2017-03-27 06:34] LABS: Mean Corpuscular HGB Conc 30 % (30-34); Mean Corpuscular Volume 73 fl (79-97); White Blood Count 10.7 K/mm3 (4.5-11.0)
[2017-03-27 06:37] LABS: Hematocrit 32.8 % (30.3-42.9); Hemoglobin 9.9 gm/dl (10.1-14.3); Mean Corpuscular Hemoglobin 22 pg (28-32)
--- NOTE | 2017-03-27 08:53 | XRay Report ---
AP CHEST: HISTORY: Follow up respiratory failure The endotracheal tube appears to terminate at the orifice of the right mainstem bronchus. The lungs are adequately aerated but retraction of the endotracheal tube by 3 cm is recommended. Heart and mediastinal structures remain within normal limits. The lungs are clear. The feeding tube is unchanged. IMPRESSION: Recommend retraction of the endotracheal tube, please see above. No acute process noted.
[2017-03-27 09:50] LABS: Anisocytosis 1+; Basophils % (Manual) 0 % (0.0-1.8); Blastocytes % (Manual) 0 %; Eosinophils % (Manual) 0 % (0.0-4.3); Hypochromasia 1+; Microcytosis 1+
[2017-03-27 09:51] LABS: Diff Status Complete; Platelet Estimate Consistent w Auto
[2017-03-27] MEDS: PEPCID IV SCH ×2 (10:08→21:34)
[2017-03-27] MEDS: NORVASC PO SCH (10:08)
[2017-03-27] MEDS: LOVENOX SUB-Q SCH (10:08)
[2017-03-27] MEDS: COREG PO SCH ×2 (10:17→21:34)
[2017-03-27 10:29] LABS: Platelet Count 72 K/mm3 (140-440)
--- NOTE | 2017-03-27 13:39 | Progress Note ---
Assessment and Plan (1) Acute respiratory failure Current Visit: Yes Status: Acute Qualifiers: Respiratory failure complication: hypoxia Qualified Code(s): J96.01 - Acute respiratory failure with hypoxia Plan to address problem: - we will continue bronchodilators and pulmonary toilet - continue aspiration precautions / VAP bundle - continue to wean oxygen for sats > 94% - we will continue PPI antihistamine therapy as well as systemic steroids for angioedema (cuff leak still equivocal) - continue to follow off Antibiotics (2) Angioedema Current Visit: Yes Status: Acute Qualifiers: Encounter type: initial encounter Qualified Code(s): T78.3XXA - Angioneurotic edema, initial encounter Plan to address problem: - as above - scheduled benadryl also (Still with equivocal cuff leak test) (3) Anxiety Current Visit: Yes Status: Acute Plan to address problem: - scheduled seroquel - prn ativan (4) Obesity (BMI 30-39.9) Current Visit: Yes Status: Acute Plan to address problem: - weight loss +/- sleep clinic evaluation at discharge (5) Thrombocytopenia Current Visit: Yes Status: Acute Plan to address problem: - stopped lovenox - send HIT assay - follow clinically (6) Discharge planning issues Current Visit: Yes Status: Acute Plan to address problem: - hopefully we can extubate in am .......she remains critically ill on life sustaining interventions including MVS and at high risk for further deterioration including 30' CCT Subjective Date of service: 03/27/17 Principal diagnosis: Acute Hypoxemic Respiratory Failure; Angioedema Interval history: Seen and examined at bedside; 24 hour events reviewed; nursing and respiratory care staff consulted; no adverse overnight events reported to me; on PSV 12/ and tolerating well; awaiting ABG; in room; No emesis or overt aspiration Objective Vital Signs - 12hr 03/27/17 03/27/17 03/27/17 01:41 01:50 02:00 Temperature Pulse Rate 57 L 58 L 58 L Pulse Rate [ Anterior Bilateral Throughout] Respiratory 16 16 16 Rate Respiratory Rate [Anterior Bilateral Throughout] Blood Pressure 117/69 115/71 O2 Sat by Pulse 100 100 100 Oximetry 03/27/17 03/27/17 03/27/17 02:10 02:20 02:30 Temperature Pulse Rate 57 L 57 L 54 L Pulse Rate [ Anterior Bilateral Throughout] Respiratory 16 16 16 Rate Respiratory Rate [Anterior Bilateral Throughout] Blood Pressure 117/69 117/69 117/69 O2 Sat by Pulse 100 100 100 Oximetry 03/27/17 03/27/17 03/27/17 02:40 02:50 03:00 Temperature Pulse Rate 54 L 59 L 65 Pulse Rate [ Anterior Bilateral Throughout] Respiratory 16 16 16 Rate Respiratory Rate [Anterior Bilateral Throughout] Blood Pressure 117/69 115/71 110/71 O2 Sat by Pulse 100 100 100 Oximetry 03/27/17 03/27/17 03/27/17 03:10 03:20 03:30 Temperature Pulse Rate 58 L 54 L 56 L Pulse Rate [ Anterior Bilateral Throughout] Respiratory 16 16 16 Rate Respiratory Rate [Anterior Bilateral Throughout] Blood Pressure 116/73 116/73 116/73 O2 Sat by Pulse 100 100 100 Oximetry 03/27/17 03/27/17 03/27/17 03:40 03:45 03:50 Temperature 98.5 F Pulse Rate 57 L 59 L Pulse Rate [ Anterior Bilateral Throughout] Respiratory 16 16 Rate Respiratory Rate [Anterior Bilateral Throughout] Blood Pressure 116/73 116/73 O2 Sat by Pulse 100 100 Oximetry 03/27/17 03/27/17 03/27/17 04:00 04:10 04:20 Temperature Pulse Rate 56 L 54 L 54 L Pulse Rate [ Anterior Bilateral Throughout] Respiratory 16 16 16 Rate Respiratory Rate [Anterior Bilateral Throughout] Blood Pressure 110/71 110/71 110/71 O2 Sat by Pulse 100 100 100 Oximetry 03/27/17 03/27/17 03/27/17 04:30 04:40 04:50 Temperature Pulse Rate 57 L 54 L 70 Pulse Rate [ Anterior Bilateral Throughout] Respiratory 16 16 21 Rate Respiratory Rate [Anterior Bilateral Throughout] Blood Pressure 116/73 116/73 116/73 O2 Sat by Pulse 100 100 100 Oximetry 03/27/17 03/27/17 03/27/17 05:00 05:10 05:20 Temperature Pulse Rate 56 L 53 L 64 Pulse Rate [ Anterior Bilateral Throughout] Respiratory 16 16 16 Rate Respiratory Rate [Anterior Bilateral Throughout] Blood Pressure 125/73 125/73 125/73 O2 Sat by Pulse 100 100 100 Oximetry 03/27/17 03/27/17 03/27/17 05:30 05:40 05:50 Temperature Pulse Rate 62 60 66 Pulse Rate [ Anterior Bilateral Throughout] Respiratory 16 16 16 Rate Respiratory Rate [Anterior Bilateral Throughout] Blood Pressure 125/73 125/73 125/73 O2 Sat by Pulse 100 100 100 Oximetry 03/27/17 03/27/17 03/27/17 06:00 06:10 06:20 Temperature Pulse Rate 63 66 58 L Pulse Rate [ Anterior Bilateral Throughout] Respiratory 17 16 16 Rate Respiratory Rate [Anterior Bilateral Throughout] Blood Pressure 125/73 117/73 117/73 O2 Sat by Pulse 100 100 100 Oximetry 03/27/17 03/27/17 03/27/17 06:30 06:40 06:50 Temperature Pulse Rate 62 59 L 55 L Pulse Rate [ Anterior Bilateral Throughout] Respiratory 16 16 16 Rate Respiratory Rate [Anterior Bilateral Throughout] Blood Pressure 117/73 117/73 117/73 O2 Sat by Pulse 100 100 100 Oximetry 03/27/17 03/27/17 03/27/17 07:00 07:10 07:20 Temperature Pulse Rate 62 61 62 Pulse Rate [ Anterior Bilateral Throughout] Respiratory 16 17 17 Rate Respiratory Rate [Anterior Bilateral Throughout] Blood Pressure 126/83 126/83 126/83 O2 Sat by Pulse 100 100 100 Oximetry 03/27/17 03/27/17 03/27/17 07:30 07:40 07:50 Temperature Pulse Rate 60 58 L 58 L Pulse Rate [ Anterior Bilateral Throughout] Respiratory 16 16 16 Rate Respiratory Rate [Anterior Bilateral Throughout] Blood Pressure 126/83 126/83 126/83 O2 Sat by Pulse 100 100 100 Oximetry 03/27/17 03/27/17 03/27/17 08:00 08:06 08:10 Temperature 97.3 F L Pulse Rate 53 L 64 Pulse Rate [ 62 Anterior Bilateral Throughout] Respiratory 18 17 Rate Respiratory 20 Rate [Anterior Bilateral Throughout] Blood Pressure 126/83 135/73 O2 Sat by Pulse 100 100 Oximetry 03/27/17 03/27/17 03/27/17 08:20 08:30 08:40 Temperature Pulse Rate 61 60 66 Pulse Rate [ Anterior Bilateral Throughout] Respiratory 17 19 20 Rate Respiratory Rate [Anterior Bilateral Throughout] Blood Pressure 135/73 135/73 135/73 O2 Sat by Pulse 100 100 100 Oximetry 03/27/17 03/27/17 03/27/17 08:49 08:50 09:00 Temperature Pulse Rate 62 62 Pulse Rate [ 84 Anterior Bilateral Throughout] Respiratory 19 17 Rate Respiratory 18 Rate [Anterior Bilateral Throughout] Blood Pressure 135/73 129/80 O2 Sat by Pulse 100 100 Oximetry 03/27/17 03/27/17 03/27/17 09:10 09:20 09:30 Temperature Pulse Rate 66 64 65 Pulse Rate [ Anterior Bilateral Throughout] Respiratory 19 22 19 Rate Respiratory Rate [Anterior Bilateral Throughout] Blood Pressure 129/80 129/80 135/73 O2 Sat by Pulse 100 100 100 Oximetry 03/27/17 03/27/17 03/27/17 09:40 09:50 10:00 Temperature Pulse Rate 66 60 58 L Pulse Rate [ Anterior Bilateral Throughout] Respiratory 19 16 16 Rate Respiratory Rate [Anterior Bilateral Throughout] Blood Pressure 135/73 135/73 136/79 O2 Sat by Pulse 98 99 100 Oximetry 03/27/17 03/27/17 03/27/17 10:08 10:10 10:17 Temperature Pulse Rate 58 L 87 72 Pulse Rate [ Anterior Bilateral Throughout] Respiratory 27 H Rate Respiratory Rate [Anterior Bilateral Throughout] Blood Pressure 136/79 136/79 136/79 O2 Sat by Pulse 100 Oximetry 03/27/17 03/27/17 03/27/17 10:30 10:52 11:00 Temperature Pulse Rate 97 H 89 76 Pulse Rate [ Anterior Bilateral Throughout] Respiratory 24 22 19 Rate Respiratory Rate [Anterior Bilateral Throughout] Blood Pressure 129/80 142/85 138/85 O2 Sat by Pulse 99 100 100 Oximetry 03/27/17 03/27/17 03/27/17 11:30 12:00 12:30 Temperature Pulse Rate 72 81 85 Pulse Rate [ Anterior Bilateral Throughout] Respiratory 17 23 11 L Rate Respiratory Rate [Anterior Bilateral Throughout] Blood Pressure 138/85 138/85 142/85 O2 Sat by Pulse 100 98 100 Oximetry 03/27/17 13:00 Temperature Pulse Rate 85 Pulse Rate [ Anterior Bilateral Throughout] Respiratory 25 H Rate Respiratory Rate [Anterior Bilateral Throughout] Blood Pressure 152/89 O2 Sat by Pulse 100 Oximetry Constitutional: no acute distress, other (sedated) Eyes: non-icteric ENT: oropharynx moist Neck: supple, no lymphadenopathy Effort: mildly labored Ascultation: Bilateral: rhonchi Cardiovascular: regular rate and rhythm Gastrointestinal: normoactive bowel sounds, soft, non-tender, non-distended Integumentary: normal Extremities: no cyanosis, no edema, pulses normal, no ischemia or petechiae Neurologic: normal mental status, non-focal exam, pupils equal and round, motor strength normal and Psychiatric: depressed CBC and BMP: 03/27/17 05:23 03/27/17 05:23 ABG, PT/INR, D-dimer: ABG POC ABG pH 7.344 (7.35-7.45) L 03/27/17 05:02 POC ABG pCO2 36.3 (35-45) 03/27/17 05:02 POC ABG pO2 135 (80-105) H 03/27/17 05:02 POC ABG HCO3 19.8 03/27/17 05:02 POC ABG Total CO2 21 03/27/17 05:02 POC ABG O2 Sat 99 03/27/17 05:02 Abnormal lab findings: Abnormal Labs 03/25/17 03/26/17 03/26/17 04:45 06:30 06:30 WBC 15.3 H Hgb 9.8 L MCV 70 L MCH 22 L RDW 16.7 H Plt Count 104 L Lymph % (Auto) 5.7 L [place] % (Auto) 7.5 H Lymph # 0.9 L [place] # 1.2 H Seg Neutrophils % 86.8 H Seg Neuts % (Manual) Lymphocytes % (Manual) Seg Neutrophils # 13.3 H Seg Neutrophils # Man Lymphocytes # (Manual) POC ABG pH POC ABG pO2 327 H Sodium Potassium 5.4 H Carbon Dioxide 19 L BUN 28 H Creatinine 1.5 H Glucose 122 H Calcium 8.0 L 03/27/17 03/27/17 03/27/17 05:02 05:23 05:23 WBC Hgb 9.9 L MCV 73 L D MCH 22 L RDW 17.0 H Plt Count 72 L Lymph % (Auto) [place] % (Auto) Lymph # [place] # Seg Neutrophils % Seg Neuts % (Manual) 97.0 H Lymphocytes % (Manual) 2.0 L Seg Neutrophils # 9.6 H Seg Neutrophils # Man 10.4 H Lymphocytes # (Manual) 0.2 L POC ABG pH 7.344 L POC ABG pO2 135 H Sodium 136 L Potassium Carbon Dioxide 17 L BUN 30 H Creatinine 1.4 H Glucose 146 H Calcium 7.9 L Chest x-ray: image reviewed
--- NOTE | 2017-03-27 15:09 | Progress Note ---
Assessment and Plan Assessment and plan: Acute hypoxic respiratory failure on mechanical ventilation less than 96 hours On general edema secondary to lisinopril use COPD Hypertension Acute kidney injury Rheumatoid arthritis - Patient is intubated and on mechanical ventilation - Discontinued lisinopril - On Solu-Medrol and Benadryl - Started on blood pressure medications - Patient is on IV fluid - Continue methotrexate DVT prophylaxis - Lovenox Disposition - Continue ICU care History Interval history: Patient was seen and evaluated this morning, patient is intubated, patient is alert and understands. The swelling around the neck decrease in size. Hospitalist Physical - Physical exam Narrative exam: Patient is intubated, she has swelling of the face and neck but improved from yesterday. The patient is obese. Vital signs as documented. Head exam is unremarkable. No scleral icterus . Neck is without jugular venous distension, thyromegaly, or carotid bruits. Lungs are clear to auscultation. Cardiac exam reveals regular rate and Rhythm. First and second heart sounds normal. No murmurs, rubs or gallops. Abdominal exam reveals normal bowel sounds, no masses, no organomegaly and no aortic enlargement. Extremities are nonedematous and both femoral and pedal pulses are normal. 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 - Constitutional Vitals: Temp Pulse Resp BP Pulse Ox 97.3 F L 63 17 181/79 100 03/27/17 08:00 03/27/17 14:39 03/27/17 14:39 03/27/17 14:00 03/27/17 14:00 General appearance: Present: severe distress, well-nourished Results - Labs CBC & Chem 7: 03/27/17 05:23 03/27/17 05:23 Labs: Laboratory Last Values WBC 10.7 K/mm3 (4.5-11.0) 03/27/17 05:23 RBC 4.50 M/mm3 (3.65-5.03) 03/27/17 05:23 Hgb 9.9 gm/dl (10.1-14.3) L 03/27/17 05:23 Hct 32.8 % (30.3-42.9) 03/27/17 05:23 MCV 73 fl (79-97) L D 03/27/17 05:23 MCH 22 pg (28-32) L 03/27/17 05:23 MCHC 30 % (30-34) 03/27/17 05:23 RDW 17.0 % (13.2-15.2) H 03/27/17 05:23 Plt Count 72 K/mm3 (140-440) L 03/27/17 05:23 Lymph % (Auto) 5.7 % (13.4-35.0) L 03/26/17 06:30 [place] % (Auto) 4.1 % (0.0-7.3) 03/27/17 05:23 Eos % (Auto) 0.0 % (0.0-4.3) 03/26/17 06:30 Baso % (Auto) 0.0 % (0.0-1.8) 03/26/17 06:30 Lymph # 0.9 K/mm3 (1.2-5.4) L 03/26/17 06:30 [place] # 1.2 K/mm3 (0.0-0.8) H 03/26/17 06:30 Eos # 0.0 K/mm3 (0.0-0.4) 03/26/17 06:30 Baso # 0.0 K/mm3 (0.0-0.1) 03/26/17 06:30 Add Manual Diff Complete 03/27/17 05:23 Total Counted 100 03/27/17 05:23 Seg Neutrophils % [place] 03/27/17 05:23 Seg Neuts % (Manual) 97.0 % (40.0-70.0) H 03/27/17 05:23 Band Neutrophils % 0 % 03/27/17 05:23 Lymphocytes % (Manual) 2.0 % (13.4-35.0) L 03/27/17 05:23 Reactive Lymphs % (Man) 0 % 03/27/17 05:23 Monocytes % (Manual) 1.0 % (0.0-7.3) 03/27/17 05:23 Eosinophils % (Manual) 0 % (0.0-4.3) 03/27/17 05:23 Basophils % (Manual) 0 % (0.0-1.8) 03/27/17 05:23 Metamyelocytes % 0 % 03/27/17 05:23 Myelocytes % 0 % 03/27/17 05:23 Promyelocytes % 0 % 03/27/17 05:23 Blast Cells % 0 % 03/27/17 05:23 Nucleated RBC % Not Reportable 03/27/17 05:23 Seg Neutrophils # 9.6 K/mm3 (1.8-7.7) H 03/27/17 05:23 Seg Neutrophils # Man 10.4 K/mm3 (1.8-7.7) H 03/27/17 05:23 Band Neutrophils # 0.0 K/mm3 03/27/17 05:23 Lymphocytes # (Manual) 0.2 K/mm3 (1.2-5.4) L 03/27/17 05:23 Abs React Lymphs (Man) 0.0 K/mm3 03/27/17 05:23 Monocytes # (Manual) 0.1 K/mm3 (0.0-0.8) 03/27/17 05:23 Eosinophils # (Manual) 0.0 K/mm3 (0.0-0.4) 03/27/17 05:23 Basophils # (Manual) 0.0 K/mm3 (0.0-0.1) 03/27/17 05:23 Metamyelocytes # 0.0 K/mm3 03/27/17 05:23 Myelocytes # 0.0 K/mm3 03/27/17 05:23 Promyelocytes # 0.0 K/mm3 03/27/17 05:23 Blast Cells # 0.0 K/mm3 03/27/17 05:23 WBC Morphology Not Reportable 03/27/17 05:23 Hypersegmented Neuts Not Reportable 03/27/17 05:23 Hyposegmented Neuts Not Reportable 03/27/17 05:23 Hypogranular Neuts Not Reportable 03/27/17 05:23 Smudge Cells Not Reportable 03/27/17 05:23 Toxic Granulation Not Reportable 03/27/17 05:23 Toxic Vacuolation Not Reportable 03/27/17 05:23 Dohle Bodies Not Reportable 03/27/17 05:23 Pelger-Huet Anomaly Not Reportable 03/27/17 05:23 Arcadio Rods Not Reportable 03/27/17 05:23 Platelet Estimate Consistent w auto 03/27/17 05:23 Clumped Platelets Not Reportable 03/27/17 05:23 Plt Clumps, EDTA Not Reportable 03/27/17 05:23 Large Platelets Not Reportable 03/27/17 05:23 Giant Platelets Not Reportable 03/27/17 05:23 Platelet Satelliting Not Reportable 03/27/17 05:23 Plt Morphology Comment Not Reportable 03/27/17 05:23 RBC Morphology Not Reportable 03/27/17 05:23 Dimorphic RBCs Not Reportable 03/27/17 05:23 Polychromasia Not Reportable 03/27/17 05:23 Hypochromasia 1+ 03/27/17 05:23 Poikilocytosis Not Reportable 03/27/17 05:23 Anisocytosis 1+ 03/27/17 05:23 Microcytosis 1+ 03/27/17 05:23 Macrocytosis Not Reportable 03/27/17 05:23 Spherocytes Not Reportable 03/27/17 05:23 Pappenheimer Bodies Not Reportable 03/27/17 05:23 Sickle Cells Not Reportable 03/27/17 05:23 Target Cells Not Reportable 03/27/17 05:23 Tear Drop Cells Not Reportable 03/27/17 05:23 Ovalocytes Not Reportable 03/27/17 05:23 Helmet Cells Not Reportable 03/27/17 05:23 Chavira-Oradell Bodies Not Reportable 03/27/17 05:23 [place] Rings Not Reportable 03/27/17 05:23 [place] Cells Not Reportable 03/27/17 05:23 Bite Cells Not Reportable 03/27/17 05:23 Crenated Cell Not Reportable 03/27/17 05:23 Elliptocytes Not Reportable 03/27/17 05:23 Acanthocytes (Spur) Not Reportable 03/27/17 05:23 Rouleaux Not Reportable 03/27/17 05:23 Hemoglobin C Crystals Not Reportable 03/27/17 05:23 Schistocytes Not Reportable 03/27/17 05:23 Malaria parasites Not Reportable 03/27/17 05:23 Russ Bodies Not Reportable 03/27/17 05:23 Hem Pathologist Commnt No 03/27/17 05:23 POC ABG pH 7.344 (7.35-7.45) L 03/27/17 05:02 POC ABG pCO2 36.3 (35-45) 03/27/17 05:02 POC ABG pO2 135 (80-105) H 03/27/17 05:02 POC ABG HCO3 19.8 03/27/17 05:02 POC ABG Total CO2 21 03/27/17 05:02 POC ABG O2 Sat 99 03/27/17 05:02 POC ABG Base Excess -6 03/27/17 05:02 FiO2 40 % 03/27/17 05:02 Sodium 136 mmol/L (137-145) L 03/27/17 05:23 Potassium 5.0 mmol/L (3.6-5.0) 03/27/17 05:23 Chloride 106.2 mmol/L (98-107) 03/27/17 05:23 Carbon Dioxide 17 mmol/L (22-30) L 03/27/17 05:23 Anion Gap 18 mmol/L 03/27/17 05:23 BUN 30 mg/dL (7-17) H 03/27/17 05:23 Creatinine 1.4 mg/dL (0.7-1.2) H 03/27/17 05:23 Estimated GFR 49 ml/min 03/27/17 05:23 BUN/Creatinine Ratio 21.42 % 03/27/17 05:23 Glucose 146 mg/dL (65-100) H 03/27/17 05:23 Calcium 7.9 mg/dL (8.4-10.2) L 03/27/17 05:23 Magnesium 2.70 mg/dL (1.7-2.3) H 03/24/17 12:05 Total Bilirubin 0.30 mg/dL (0.1-1.2) 03/24/17 12:05 Direct Bilirubin 0.2 mg/dL (0-0.2) 03/24/17 12:05 AST 20 units/L (5-40) 03/24/17 12:05 ALT 11 units/L (7-56) 03/24/17 12:05 Alkaline Phosphatase 78 units/L (35-129) 03/24/17 12:05 Total Protein 8.6 g/dL (6.3-8.2) H 03/24/17 12:05 Albumin 4.0 g/dL (3.9-5) 03/24/17 12:05 Albumin/Globulin Ratio 0.9 % 03/24/17 12:05
[2017-03-27] MEDS: DIPRIVAN 10 MG/ML 1,000 MG/100 ML BOTTLE IV SCH (15:14)
[2017-03-28] MEDS: BENADRYL IV SCH ×5 (00:13→23:51)
[2017-03-28] MEDS: DUONEB *Not for PRN Use IH SCH ×4 (02:47→20:38)
[2017-03-28 06:27] LABS: ISTAT Base Excess -4; ISTAT HCO3 21.1; ISTAT PCO2 36.3 (35-45); ISTAT PH 7.374 (7.35-7.45); ISTAT PO2 124 (80-105); ISTAT SO2 99; ISTAT TCO2 22
--- NOTE | 2017-03-28 07:47 | XRay Report ---
AP CHEST: HISTORY: Followup respiratory failure The endotracheal tube has been retracted slightly and now terminates 2 cm superior to the mike. Feeding tube is unchanged. The lungs remain clear. Heart and mediastinal structures are unchanged at the upper limits of normal. No new acute process is noted. IMPRESSION: No acute cardiopulmonary process.
[2017-03-28 09:10] LABS: Hematocrit 32.3 % (30.3-42.9); Hemoglobin 10.4 gm/dl (10.1-14.3); Mean Corpuscular HGB Conc 32 % (30-34); Mean Corpuscular Hemoglobin 22 pg (28-32); Mean Corpuscular Volume 68 fl (79-97); Platelet Count 57 K/mm3 (140-440); Red Blood Count 4.73 M/mm3 (3.65-5.03); Red Cell Distribution Width 16.5 % (13.2-15.2); White Blood Count 15.3 K/mm3 (4.5-11.0)
[2017-03-28 09:11] LABS: Basophils % (Auto) 0.3 % (0.0-1.8); Eosinophils % (Auto) 1.1 % (0.0-4.3)
[2017-03-28 09:21] LABS: BUN/Creatinine Ratio 29.16; Calcium 8.2 mg/dL (8.4-10.2); Chloride 109.1 mmol/L (98-107)
[2017-03-28 09:44] LABS: Potassium 6.3 mmol/L (3.6-5.0)
[2017-03-28] MEDS: PEPCID IV SCH ×2 (10:13→21:53)
[2017-03-28] MEDS: NORVASC PO SCH (10:13)
[2017-03-28] MEDS: COREG PO SCH ×2 (10:14→21:53)
[2017-03-28] MEDS ORDERED: KIONEX PO ONE (11:00)
[2017-03-28] MEDS: DILAUDID IV PRN ×4 (12:09→23:51)
[2017-03-28] MEDS: ZOFRAN IV PRN (12:09)
--- NOTE | 2017-03-28 12:28 | Progress Note ---
Assessment and Plan (1) Acute respiratory failure Current Visit: Yes Status: Acute Qualifiers: Respiratory failure complication: hypoxia Qualified Code(s): J96.01 - Acute respiratory failure with hypoxia Plan to address problem: - we will continue bronchodilators and pulmonary toilet - continue aspiration precautions / VAP bundle - continue to wean oxygen for sats > 94% - we will continue PPI antihistamine therapy as well as systemic steroids for angioedema (cuff leak still equivocal) - continue to follow off Antibiotics - hold on extubation today - add robinul and scopolamine for secretions (2) Angioedema Current Visit: Yes Status: Acute Qualifiers: Encounter type: initial encounter Qualified Code(s): T78.3XXA - Angioneurotic edema, initial encounter Plan to address problem: - as above - scheduled benadryl also (Still with equivocal cuff leak test) (3) Anxiety Current Visit: Yes Status: Acute Plan to address problem: - scheduled seroquel - prn ativan (4) Obesity (BMI 30-39.9) Current Visit: Yes Status: Acute Plan to address problem: - weight loss +/- sleep clinic evaluation at discharge (5) Thrombocytopenia Current Visit: Yes Status: Acute Plan to address problem: - stopped lovenox - follow HIT assay - follow clinically (6) Discharge planning issues Current Visit: Yes Status: Acute Plan to address problem: - hopefully we can extubate in am .......she remains critically ill on life sustaining interventions including MVS and at high risk for further deterioration including 30' CCT Subjective Date of service: 03/28/17 Principal diagnosis: Acute Hypoxemic Respiratory Failure; Angioedema Interval history: Seen and examined at bedside; 24 hour events reviewed; nursing and respiratory care staff consulted; no adverse overnight events reported to me; on PSV 08/28 but secretions copious and failed cuff leak testing; No N/V/F/C Objective Vital Signs - 12hr 03/28/17 03/28/17 03/28/17 00:30 01:00 01:30 Temperature Pulse Rate 66 61 61 Pulse Rate [ Anterior Bilateral Throughout] Pulse Rate [ From Monitor] Respiratory 16 17 16 Rate Respiratory Rate [Anterior Bilateral Throughout] Blood Pressure 153/80 146/79 156/83 O2 Sat by Pulse 100 100 100 Oximetry 03/28/17 03/28/17 03/28/17 02:00 02:30 02:49 Temperature Pulse Rate 80 62 Pulse Rate [ 62 Anterior Bilateral Throughout] Pulse Rate [ From Monitor] Respiratory 19 16 Rate Respiratory 18 Rate [Anterior Bilateral Throughout] Blood Pressure 161/93 164/94 O2 Sat by Pulse 100 99 Oximetry 03/28/17 03/28/17 03/28/17 03:00 03:30 04:00 Temperature 98.1 F Pulse Rate 65 66 56 L Pulse Rate [ Anterior Bilateral Throughout] Pulse Rate [ From Monitor] Respiratory 16 16 17 Rate Respiratory Rate [Anterior Bilateral Throughout] Blood Pressure 149/79 155/90 137/66 O2 Sat by Pulse 100 99 100 Oximetry 03/28/17 03/28/17 03/28/17 04:30 05:00 05:19 Temperature Pulse Rate 55 L 60 Pulse Rate [ Anterior Bilateral Throughout] Pulse Rate [ From Monitor] Respiratory 16 16 16 Rate Respiratory Rate [Anterior Bilateral Throughout] Blood Pressure 145/86 137/76 O2 Sat by Pulse 100 100 100 Oximetry 03/28/17 03/28/17 03/28/17 05:30 06:00 06:30 Temperature Pulse Rate 62 64 59 L Pulse Rate [ Anterior Bilateral Throughout] Pulse Rate [ From Monitor] Respiratory 16 16 17 Rate Respiratory Rate [Anterior Bilateral Throughout] Blood Pressure 153/90 152/88 145/81 O2 Sat by Pulse 100 99 100 Oximetry 03/28/17 03/28/17 03/28/17 07:00 07:30 07:45 Temperature Pulse Rate 57 L 59 L Pulse Rate [ Anterior Bilateral Throughout] Pulse Rate [ 59 L From Monitor] Respiratory 17 17 16 Rate Respiratory Rate [Anterior Bilateral Throughout] Blood Pressure 145/81 143/82 O2 Sat by Pulse 100 100 100 Oximetry 03/28/17 03/28/17 03/28/17 08:00 08:30 08:40 Temperature 97.6 F Pulse Rate 63 64 65 Pulse Rate [ Anterior Bilateral Throughout] Pulse Rate [ From Monitor] Respiratory 15 19 20 Rate Respiratory Rate [Anterior Bilateral Throughout] Blood Pressure 151/82 163/80 137/76 O2 Sat by Pulse 100 100 100 Oximetry 03/28/17 03/28/17 03/28/17 08:50 09:00 09:02 Temperature Pulse Rate 66 Pulse Rate [ 65 6 L Anterior Bilateral Throughout] Pulse Rate [ From Monitor] Respiratory 17 Rate Respiratory 18 Rate [Anterior Bilateral Throughout] Blood Pressure 163/80 O2 Sat by Pulse 100 Oximetry 03/28/17 03/28/17 03/28/17 09:30 10:00 10:13 Temperature Pulse Rate 68 64 72 Pulse Rate [ Anterior Bilateral Throughout] Pulse Rate [ From Monitor] Respiratory 13 16 Rate Respiratory Rate [Anterior Bilateral Throughout] Blood Pressure 137/108 123/73 140/80 O2 Sat by Pulse 100 100 Oximetry 03/28/17 03/28/17 03/28/17 10:14 10:30 10:35 Temperature Pulse Rate 68 62 59 L Pulse Rate [ Anterior Bilateral Throughout] Pulse Rate [ From Monitor] Respiratory 12 Rate Respiratory Rate [Anterior Bilateral Throughout] Blood Pressure 140/84 123/73 O2 Sat by Pulse 100 Oximetry 03/28/17 03/28/17 03/28/17 11:00 11:30 12:00 Temperature 98.4 F Pulse Rate 75 63 73 Pulse Rate [ Anterior Bilateral Throughout] Pulse Rate [ From Monitor] Respiratory 15 14 19 Rate Respiratory Rate [Anterior Bilateral Throughout] Blood Pressure 148/81 148/81 148/85 O2 Sat by Pulse 100 100 100 Oximetry 03/28/17 12:17 Temperature Pulse Rate 60 Pulse Rate [ Anterior Bilateral Throughout] Pulse Rate [ From Monitor] Respiratory 19 Rate Respiratory Rate [Anterior Bilateral Throughout] Blood Pressure 148/85 O2 Sat by Pulse 100 Oximetry Constitutional: no acute distress, other (sedated) Eyes: non-icteric ENT: oropharynx moist Neck: supple, no lymphadenopathy Effort: mildly labored Ascultation: Bilateral: rhonchi Cardiovascular: regular rate and rhythm Gastrointestinal: normoactive bowel sounds, soft, non-tender, non-distended Integumentary: normal Extremities: no cyanosis, no edema, pulses normal, no ischemia or petechiae Neurologic: normal mental status, non-focal exam, pupils equal and round, motor strength normal and Psychiatric: depressed CBC and BMP: 03/29/17 04:15 03/29/17 04:15 ABG, PT/INR, D-dimer: ABG POC ABG pH 7.374 (7.35-7.45) 03/28/17 04:55 POC ABG pCO2 36.3 (35-45) 03/28/17 04:55 POC ABG pO2 124 (80-105) H 03/28/17 04:55 POC ABG HCO3 21.1 03/28/17 04:55 POC ABG Total CO2 22 03/28/17 04:55 POC ABG O2 Sat 99 03/28/17 04:55 Abnormal lab findings: Abnormal Labs 03/25/17 03/26/17 03/26/17 04:45 06:30 06:30 WBC 15.3 H Hgb 9.8 L MCV 70 L MCH 22 L RDW 16.7 H Plt Count 104 L Lymph % (Auto) 5.7 L [place] % (Auto) 7.5 H Lymph # 0.9 L [place] # 1.2 H Seg Neutrophils % 86.8 H Seg Neuts % (Manual) Lymphocytes % (Manual) Seg Neutrophils # 13.3 H Seg Neutrophils # Man Lymphocytes # (Manual) POC ABG pH POC ABG pO2 327 H Sodium Potassium 5.4 H Chloride Carbon Dioxide 19 L BUN 28 H Creatinine 1.5 H Glucose 122 H Calcium 8.0 L 03/27/17 03/27/17 03/27/17 05:02 05:23 05:23 WBC Hgb 9.9 L MCV 73 L D MCH 22 L RDW 17.0 H Plt Count 72 L Lymph % (Auto) [place] % (Auto) Lymph # [place] # Seg Neutrophils % Seg Neuts % (Manual) 97.0 H Lymphocytes % (Manual) 2.0 L Seg Neutrophils # 9.6 H Seg Neutrophils # Man 10.4 H Lymphocytes # (Manual) 0.2 L POC ABG pH 7.344 L POC ABG pO2 135 H Sodium 136 L Potassium Chloride Carbon Dioxide 17 L BUN 30 H Creatinine 1.4 H Glucose 146 H Calcium 7.9 L 03/28/17 03/28/17 03/28/17 04:55 08:50 08:50 WBC 15.3 H Hgb MCV 68 L D MCH 22 L RDW 16.5 H Plt Count 57 L Lymph % (Auto) 6.4 L [place] % (Auto) Lymph # 1.0 L [place] # Seg Neutrophils % 87.8 H Seg Neuts % (Manual) Lymphocytes % (Manual) Seg Neutrophils # 13.4 H Seg Neutrophils # Man Lymphocytes # (Manual) POC ABG pH POC ABG pO2 124 H Sodium Potassium 6.3 H* D Chloride 109.1 H Carbon Dioxide 18 L BUN 35 H Creatinine Glucose 101 H Calcium 8.2 L Chest x-ray: image reviewed
[2017-03-28] MEDS ORDERED: TRANSDERM-SCOP TD ONE (12:45)
[2017-03-28 13:09] LABS: ISTAT Base Excess -3; ISTAT HCO3 21.2; ISTAT PCO2 29.5 (35-45); ISTAT PH 7.465 (7.35-7.45); ISTAT PO2 131 (80-105); ISTAT SO2 99; ISTAT TCO2 22
[2017-03-28] MEDS: ROBINUL PO SCH ×2 (14:01→20:05)
--- NOTE | 2017-03-28 15:32 | Progress Note ---
Assessment and Plan Assessment and plan: Acute hypoxic respiratory failure on mechanical ventilation >96 hours Angioedema secondary to lisinopril use COPD Hypertension Acute kidney injury Rheumatoid arthritis Hyperkalemia: was given kayexalate, will recheck - Pulmonary is following - Patient is intubated and on mechanical ventilation - Discontinued lisinopril - On Solu-Medrol and Benadryl - Started on blood pressure medications - Patient is on IV fluid - Continue methotrexate DVT prophylaxis - Lovenox Disposition - Continue ICU care History Interval history: Patient was seen and evaluated this morning, patient is intubated and on CPAP, patient is alert and understands. The swelling around the neck decrease in size. Hospitalist Physical - Physical exam Narrative exam: Patient is intubated and on CPAP, she has swelling of the face and neck but improved from yesterday. The patient is obese. Vital signs as documented. Head exam is unremarkable. No scleral icterus . Neck is without jugular venous distension, thyromegaly, or carotid bruits. Lungs are clear to auscultation. Cardiac exam reveals regular rate and Rhythm. First and second heart sounds normal. No murmurs, rubs or gallops. Abdominal exam reveals normal bowel sounds, no masses, no organomegaly and no aortic enlargement. Extremities are nonedematous and both femoral and pedal pulses are normal. RESIDENT CAREGIVER: Alert . - Constitutional Vitals: Temp Pulse Resp BP Pulse Ox 98.3 F 60 19 148/85 100 03/28/17 12:38 03/28/17 12:17 03/28/17 12:17 03/28/17 12:17 03/28/17 12:17 General appearance: Present: severe distress, well-nourished Results - Labs CBC & Chem 7: 03/28/17 08:50 03/28/17 08:50 Labs: Laboratory Last Values WBC 15.3 K/mm3 (4.5-11.0) H 03/28/17 08:50 RBC 4.73 M/mm3 (3.65-5.03) 03/28/17 08:50 Hgb 10.4 gm/dl (10.1-14.3) 03/28/17 08:50 Hct 32.3 % (30.3-42.9) 03/28/17 08:50 MCV 68 fl (79-97) L D 03/28/17 08:50 MCH 22 pg (28-32) L 03/28/17 08:50 MCHC 32 % (30-34) 03/28/17 08:50 RDW 16.5 % (13.2-15.2) H 03/28/17 08:50 Plt Count 57 K/mm3 (140-440) L 03/28/17 08:50 Lymph % (Auto) 6.4 % (13.4-35.0) L 03/28/17 08:50 [place] % (Auto) 4.4 % (0.0-7.3) 03/28/17 08:50 Eos % (Auto) 1.1 % (0.0-4.3) 03/28/17 08:50 Baso % (Auto) 0.3 % (0.0-1.8) 03/28/17 08:50 Lymph # 1.0 K/mm3 (1.2-5.4) L 03/28/17 08:50 [place] # 0.7 K/mm3 (0.0-0.8) 03/28/17 08:50 Eos # 0.2 K/mm3 (0.0-0.4) 03/28/17 08:50 Baso # 0.0 K/mm3 (0.0-0.1) 03/28/17 08:50 Add Manual Diff Complete 03/27/17 05:23 Total Counted 100 03/27/17 05:23 Seg Neutrophils % 87.8 % (40.0-70.0) H 03/28/17 08:50 Seg Neuts % (Manual) 97.0 % (40.0-70.0) H 03/27/17 05:23 Band Neutrophils % 0 % 03/27/17 05:23 Lymphocytes % (Manual) 2.0 % (13.4-35.0) L 03/27/17 05:23 Reactive Lymphs % (Man) 0 % 03/27/17 05:23 Monocytes % (Manual) 1.0 % (0.0-7.3) 03/27/17 05:23 Eosinophils % (Manual) 0 % (0.0-4.3) 03/27/17 05:23 Basophils % (Manual) 0 % (0.0-1.8) 03/27/17 05:23 Metamyelocytes % 0 % 03/27/17 05:23 Myelocytes % 0 % 03/27/17 05:23 Promyelocytes % 0 % 03/27/17 05:23 Blast Cells % 0 % 03/27/17 05:23 Nucleated RBC % Not Reportable 03/27/17 05:23 Seg Neutrophils # 13.4 K/mm3 (1.8-7.7) H 03/28/17 08:50 Seg Neutrophils # Man 10.4 K/mm3 (1.8-7.7) H 03/27/17 05:23 Band Neutrophils # 0.0 K/mm3 03/27/17 05:23 Lymphocytes # (Manual) 0.2 K/mm3 (1.2-5.4) L 03/27/17 05:23 Abs React Lymphs (Man) 0.0 K/mm3 03/27/17 05:23 Monocytes # (Manual) 0.1 K/mm3 (0.0-0.8) 03/27/17 05:23 Eosinophils # (Manual) 0.0 K/mm3 (0.0-0.4) 03/27/17 05:23 Basophils # (Manual) 0.0 K/mm3 (0.0-0.1) 03/27/17 05:23 Metamyelocytes # 0.0 K/mm3 03/27/17 05:23 Myelocytes # 0.0 K/mm3 03/27/17 05:23 Promyelocytes # 0.0 K/mm3 03/27/17 05:23 Blast Cells # 0.0 K/mm3 03/27/17 05:23 WBC Morphology Not Reportable 03/27/17 05:23 Hypersegmented Neuts Not Reportable 03/27/17 05:23 Hyposegmented Neuts Not Reportable 03/27/17 05:23 Hypogranular Neuts Not Reportable 03/27/17 05:23 Smudge Cells Not Reportable 03/27/17 05:23 Toxic Granulation Not Reportable 03/27/17 05:23 Toxic Vacuolation Not Reportable 03/27/17 05:23 Dohle Bodies Not Reportable 03/27/17 05:23 Pelger-Huet Anomaly Not Reportable 03/27/17 05:23 Arcadio Rods Not Reportable 03/27/17 05:23 Platelet Estimate Consistent w auto 03/27/17 05:23 Clumped Platelets Not Reportable 03/27/17 05:23 Plt Clumps, EDTA Not Reportable 03/27/17 05:23 Large Platelets Not Reportable 03/27/17 05:23 Giant Platelets Not Reportable 03/27/17 05:23 Platelet Satelliting Not Reportable 03/27/17 05:23 Plt Morphology Comment Not Reportable 03/27/17 05:23 RBC Morphology Not Reportable 03/27/17 05:23 Dimorphic RBCs Not Reportable 03/27/17 05:23 Polychromasia Not Reportable 03/27/17 05:23 Hypochromasia 1+ 03/27/17 05:23 Poikilocytosis Not Reportable 03/27/17 05:23 Anisocytosis 1+ 03/27/17 05:23 Microcytosis 1+ 03/27/17 05:23 Macrocytosis Not Reportable 03/27/17 05:23 Spherocytes Not Reportable 03/27/17 05:23 Pappenheimer Bodies Not Reportable 03/27/17 05:23 Sickle Cells Not Reportable 03/27/17 05:23 Target Cells Not Reportable 03/27/17 05:23 Tear Drop Cells Not Reportable 03/27/17 05:23 Ovalocytes Not Reportable 03/27/17 05:23 Helmet Cells Not Reportable 03/27/17 05:23 Chavira-Hitchita Bodies Not Reportable 03/27/17 05:23 [place] Rings Not Reportable 03/27/17 05:23 [place] Cells Not Reportable 03/27/17 05:23 Bite Cells Not Reportable 03/27/17 05:23 Crenated Cell Not Reportable 03/27/17 05:23 Elliptocytes Not Reportable 03/27/17 05:23 Acanthocytes (Spur) Not Reportable 03/27/17 05:23 Rouleaux Not Reportable 03/27/17 05:23 Hemoglobin C Crystals Not Reportable 03/27/17 05:23 Schistocytes Not Reportable 03/27/17 05:23 Malaria parasites Not Reportable 03/27/17 05:23 Russ Bodies Not Reportable 03/27/17 05:23 Hem Pathologist Commnt No 03/27/17 05:23 POC ABG pH 7.465 (7.35-7.45) H 03/28/17 12:43 POC ABG pCO2 29.5 (35-45) L 03/28/17 12:43 POC ABG pO2 131 (80-105) H 03/28/17 12:43 POC ABG HCO3 21.2 03/28/17 12:43 POC ABG Total CO2 22 03/28/17 12:43 POC ABG O2 Sat 99 03/28/17 12:43 POC ABG Base Excess -3 03/28/17 12:43 FiO2 26 % 03/28/17 04:55 Sodium 142 mmol/L (137-145) 03/28/17 08:50 Potassium 6.3 mmol/L (3.6-5.0) H* D 03/28/17 08:50 Chloride 109.1 mmol/L (98-107) H 03/28/17 08:50 Carbon Dioxide 18 mmol/L (22-30) L 03/28/17 08:50 Anion Gap 21 mmol/L 03/28/17 08:50 BUN 35 mg/dL (7-17) H 03/28/17 08:50 Creatinine 1.2 mg/dL (0.7-1.2) 03/28/17 08:50 Estimated GFR 59 ml/min 03/28/17 08:50 BUN/Creatinine Ratio 29.16 % 03/28/17 08:50 Glucose 101 mg/dL (65-100) H 03/28/17 08:50 Calcium 8.2 mg/dL (8.4-10.2) L 03/28/17 08:50 Magnesium 2.70 mg/dL (1.7-2.3) H 03/24/17 12:05 Total Bilirubin 0.30 mg/dL (0.1-1.2) 03/24/17 12:05 Direct Bilirubin 0.2 mg/dL (0-0.2) 03/24/17 12:05 AST 20 units/L (5-40) 03/24/17 12:05 ALT 11 units/L (7-56) 03/24/17 12:05 Alkaline Phosphatase 78 units/L (35-129) 03/24/17 12:05 Total Protein 8.6 g/dL (6.3-8.2) H 03/24/17 12:05 Albumin 4.0 g/dL (3.9-5) 03/24/17 12:05 Albumin/Globulin Ratio 0.9 % 03/24/17 12:05 Hyperkalemia
[2017-03-29] MEDS: DUONEB *Not for PRN Use IH SCH ×4 (01:51→20:29)
[2017-03-29] MEDS: ZOFRAN IV PRN (02:25)
[2017-03-29] MEDS: DILAUDID IV PRN (02:25)
[2017-03-29 05:02] LABS: Calcium 8.4 mg/dL (8.4-10.2); Chloride 108.4 mmol/L (98-107); Potassium 4.3 mmol/L (3.6-5.0)
[2017-03-29 05:16] LABS: Basophils % (Auto) 0.2 % (0.0-1.8); Hematocrit 32.1 % (30.3-42.9); Hemoglobin 10.2 gm/dl (10.1-14.3); Mean Corpuscular HGB Conc 32 % (30-34); Mean Corpuscular Volume 70 fl (79-97); Red Blood Count 4.58 M/mm3 (3.65-5.03); Red Cell Distribution Width 16.6 % (13.2-15.2); White Blood Count 9.9 K/mm3 (4.5-11.0)
[2017-03-29 05:22] LABS: Mean Corpuscular Hemoglobin 22 pg (28-32); Platelet Count 159 K/mm3 (140-440)
[2017-03-29 05:49] LABS: ISTAT Base Excess 0; ISTAT HCO3 23.4; ISTAT PCO2 31.2 (35-45); ISTAT PH 7.482 (7.35-7.45); ISTAT PO2 150 (80-105); ISTAT SO2 99; ISTAT TCO2 24
[2017-03-29] MEDS: BENADRYL IV SCH ×2 (06:52→12:19)
[2017-03-29] MEDS: COREG PO SCH ×2 (09:30→23:47)
[2017-03-29] MEDS: ROBINUL PO SCH ×3 (09:31→23:46)
[2017-03-29] MEDS: NORVASC PO SCH (09:31)
[2017-03-29] MEDS: PEPCID IV SCH (09:32)
--- NOTE | 2017-03-29 09:54 | XRay Report ---
AP chest x-ray. History: Followup respiratory failure. Findings: The heart and lungs reveal no acute findings or interval changes since March 28. The endotracheal tube is in satisfactory position.
[2017-03-29] MEDS ORDERED: S2 RACEPINEPHRINE 2.25% IH PRN (13:04)
--- NOTE | 2017-03-29 13:10 | Progress Note ---
Assessment and Plan (1) Acute respiratory failure Current Visit: Yes Status: Acute Qualifiers: Respiratory failure complication: hypoxia Qualified Code(s): J96.01 - Acute respiratory failure with hypoxia Plan to address problem: - extubate to prn BIPAP - added prn racemic epinephrine - we will continue bronchodilators and pulmonary toilet - continue aspiration precautions - continue to wean oxygen for sats > 94% - we will continue PPI antihistamine therapy as well as systemic steroids for angioedema - continue to follow off Antibiotics - stop robinul and scopolamine for secretions (2) Angioedema Current Visit: Yes Status: Acute Qualifiers: Encounter type: initial encounter Qualified Code(s): T78.3XXA - Angioneurotic edema, initial encounter Plan to address problem: - as above - scheduled benadryl also (3) Anxiety Current Visit: Yes Status: Acute Plan to address problem: - scheduled seroquel - prn ativan (4) Obesity (BMI 30-39.9) Current Visit: Yes Status: Acute Plan to address problem: - weight loss +/- sleep clinic evaluation at discharge (5) Thrombocytopenia Current Visit: Yes Status: Acute Plan to address problem: - stopped lovenox - follow HIT assay - follow clinically (6) Discharge planning issues Current Visit: Yes Status: Acute Plan to address problem: - give trial of extubation but obsereve in ICU overnight .......she remains critically ill on life sustaining interventions including MVS and at high risk for further deterioration including 30' CCT Subjective Date of service: 03/29/17 Principal diagnosis: Acute Hypoxemic Respiratory Failure; Angioedema Interval history: Seen and examined at bedside; 24 hour events reviewed; nursing and respiratory care staff consulted; no adverse overnight events reported to me; cuff leak test much better; tolerating SBT well; denies acute chest pains; No N/V/F/C; secretions much better Objective Vital Signs - 12hr 03/29/17 03/29/17 03/29/17 01:31 01:53 02:00 Temperature Pulse Rate 65 71 Pulse Rate [ 61 Anterior Bilateral Throughout] Pulse Rate [ From Monitor] Respiratory 16 17 Rate Respiratory 16 Rate [Anterior Bilateral Throughout] Blood Pressure 146/79 165/91 O2 Sat by Pulse 99 99 Oximetry 03/29/17 03/29/17 03/29/17 02:30 03:00 03:30 Temperature Pulse Rate 65 64 66 Pulse Rate [ Anterior Bilateral Throughout] Pulse Rate [ From Monitor] Respiratory 18 17 17 Rate Respiratory Rate [Anterior Bilateral Throughout] Blood Pressure 157/109 163/93 158/95 O2 Sat by Pulse 100 99 99 Oximetry 03/29/17 03/29/17 03/29/17 03:44 04:00 04:30 Temperature 98.8 F Pulse Rate 63 59 L 58 L Pulse Rate [ Anterior Bilateral Throughout] Pulse Rate [ From Monitor] Respiratory 17 17 Rate Respiratory Rate [Anterior Bilateral Throughout] Blood Pressure 158/95 166/92 162/90 O2 Sat by Pulse 100 99 100 Oximetry 03/29/17 03/29/17 03/29/17 05:01 05:31 06:01 Temperature Pulse Rate 57 L 83 56 L Pulse Rate [ Anterior Bilateral Throughout] Pulse Rate [ From Monitor] Respiratory 22 17 16 Rate Respiratory Rate [Anterior Bilateral Throughout] Blood Pressure 162/89 170/78 169/94 O2 Sat by Pulse 100 100 100 Oximetry 03/29/17 03/29/17 03/29/17 06:30 07:01 07:31 Temperature Pulse Rate 54 L 71 56 L Pulse Rate [ Anterior Bilateral Throughout] Pulse Rate [ From Monitor] Respiratory 17 17 16 Rate Respiratory Rate [Anterior Bilateral Throughout] Blood Pressure 170/103 174/85 O2 Sat by Pulse 100 100 100 Oximetry 03/29/17 03/29/17 03/29/17 08:00 08:01 08:04 Temperature 98.5 F Pulse Rate 55 L 55 L Pulse Rate [ Anterior Bilateral Throughout] Pulse Rate [ 67 From Monitor] Respiratory 19 9 L 12 Rate Respiratory Rate [Anterior Bilateral Throughout] Blood Pressure 167/83 174/85 O2 Sat by Pulse 99 100 99 Oximetry 03/29/17 03/29/17 03/29/17 08:31 09:01 09:30 Temperature Pulse Rate 56 L 60 58 L Pulse Rate [ Anterior Bilateral Throughout] Pulse Rate [ From Monitor] Respiratory 14 13 Rate Respiratory Rate [Anterior Bilateral Throughout] Blood Pressure 158/81 157/82 157/82 O2 Sat by Pulse 98 100 Oximetry 03/29/17 03/29/17 03/29/17 09:31 10:00 10:01 Temperature Pulse Rate 62 58 L 58 L Pulse Rate [ Anterior Bilateral Throughout] Pulse Rate [ From Monitor] Respiratory 15 13 Rate Respiratory Rate [Anterior Bilateral Throughout] Blood Pressure 146/92 168/84 O2 Sat by Pulse 100 100 Oximetry 03/29/17 03/29/17 03/29/17 10:31 11:01 11:31 Temperature Pulse Rate 54 L 54 L 56 L Pulse Rate [ Anterior Bilateral Throughout] Pulse Rate [ From Monitor] Respiratory 17 14 11 L Rate Respiratory Rate [Anterior Bilateral Throughout] Blood Pressure 164/85 173/81 180/90 O2 Sat by Pulse 100 100 100 Oximetry 03/29/17 03/29/17 03/29/17 11:56 12:00 12:01 Temperature 98.7 F Pulse Rate 54 L 58 L Pulse Rate [ Anterior Bilateral Throughout] Pulse Rate [ From Monitor] Respiratory 12 24 Rate Respiratory Rate [Anterior Bilateral Throughout] Blood Pressure 180/90 174/93 O2 Sat by Pulse 100 100 Oximetry Constitutional: no acute distress, other (sedated) Eyes: non-icteric ENT: oropharynx moist Neck: supple, no lymphadenopathy Effort: mildly labored Ascultation: Bilateral: rhonchi Cardiovascular: regular rate and rhythm Gastrointestinal: normoactive bowel sounds, soft, non-tender, non-distended Integumentary: normal Extremities: no cyanosis, no edema, pulses normal, no ischemia or petechiae Neurologic: normal mental status, non-focal exam, pupils equal and round, motor strength normal and Psychiatric: depressed CBC and BMP: 03/30/17 03:51 03/30/17 03:51 ABG, PT/INR, D-dimer: ABG POC ABG pH 7.482 (7.35-7.45) H 03/29/17 05:22 POC ABG pCO2 31.2 (35-45) L 03/29/17 05:22 POC ABG pO2 150 (80-105) H 03/29/17 05:22 POC ABG HCO3 23.4 03/29/17 05:22 POC ABG Total CO2 24 03/29/17 05:22 POC ABG O2 Sat 99 03/29/17 05:22 Abnormal lab findings: Abnormal Labs 03/25/17 03/26/17 03/26/17 04:45 06:30 06:30 WBC 15.3 H Hgb 9.8 L MCV 70 L MCH 22 L RDW 16.7 H Plt Count 104 L Lymph % (Auto) 5.7 L [place] % (Auto) 7.5 H Lymph # 0.9 L [place] # 1.2 H Seg Neutrophils % 86.8 H Seg Neuts % (Manual) Lymphocytes % (Manual) Seg Neutrophils # 13.3 H Seg Neutrophils # Man Lymphocytes # (Manual) POC ABG pH POC ABG pCO2 POC ABG pO2 327 H Sodium Potassium 5.4 H Chloride Carbon Dioxide 19 L BUN 28 H Creatinine 1.5 H Glucose 122 H Calcium 8.0 L Total Creatine Kinase 03/27/17 03/27/17 03/27/17 05:02 05:23 05:23 WBC Hgb 9.9 L MCV 73 L D MCH 22 L RDW 17.0 H Plt Count 72 L Lymph % (Auto) [place] % (Auto) Lymph # [place] # Seg Neutrophils % Seg Neuts % (Manual) 97.0 H Lymphocytes % (Manual) 2.0 L Seg Neutrophils # 9.6 H Seg Neutrophils # Man 10.4 H Lymphocytes # (Manual) 0.2 L POC ABG pH 7.344 L POC ABG pCO2 POC ABG pO2 135 H Sodium 136 L Potassium Chloride Carbon Dioxide 17 L BUN 30 H Creatinine 1.4 H Glucose 146 H Calcium 7.9 L Total Creatine Kinase 03/28/17 03/28/17 03/28/17 04:55 08:50 08:50 WBC 15.3 H Hgb MCV 68 L D MCH 22 L RDW 16.5 H Plt Count 57 L Lymph % (Auto) 6.4 L [place] % (Auto) Lymph # 1.0 L [place] # Seg Neutrophils % 87.8 H Seg Neuts % (Manual) Lymphocytes % (Manual) Seg Neutrophils # 13.4 H Seg Neutrophils # Man Lymphocytes # (Manual) POC ABG pH POC ABG pCO2 POC ABG pO2 124 H Sodium Potassium 6.3 H* D Chloride 109.1 H Carbon Dioxide 18 L BUN 35 H Creatinine Glucose 101 H Calcium 8.2 L Total Creatine Kinase 03/28/17 03/28/17 03/29/17 12:43 17:19 04:15 WBC Hgb MCV 70 L MCH 22 L RDW 16.6 H Plt Count Lymph % (Auto) 7.3 L [place] % (Auto) Lymph # 0.7 L [place] # Seg Neutrophils % 87.0 H Seg Neuts % (Manual) Lymphocytes % (Manual) Seg Neutrophils # 8.6 H Seg Neutrophils # Man Lymphocytes # (Manual) POC ABG pH 7.465 H POC ABG pCO2 29.5 L POC ABG pO2 131 H Sodium Potassium Chloride Carbon Dioxide BUN Creatinine Glucose Calcium Total Creatine Kinase 169 H 03/29/17 03/29/17 04:15 05:22 WBC Hgb MCV MCH RDW Plt Count Lymph % (Auto) [place] % (Auto) Lymph # [place] # Seg Neutrophils % Seg Neuts % (Manual) Lymphocytes % (Manual) Seg Neutrophils # Seg Neutrophils # Man Lymphocytes # (Manual) POC ABG pH 7.482 H POC ABG pCO2 31.2 L POC ABG pO2 150 H Sodium Potassium Chloride 108.4 H Carbon Dioxide 21 L BUN 36 H Creatinine Glucose 109 H Calcium Total Creatine Kinase Chest x-ray: image reviewed
[2017-03-29 15:39] LABS: ISTAT Base Excess -1; ISTAT HCO3 23.4; ISTAT PCO2 33.6 (35-45); ISTAT PH 7.452 (7.35-7.45); ISTAT PO2 106 (80-105); ISTAT SO2 98; ISTAT TCO2 24
--- NOTE | 2017-03-29 15:55 | Progress Note ---
Assessment and Plan Assessment and plan: Acute hypoxic respiratory failure on mechanical ventilation >96 hours Angioedema secondary to lisinopril use COPD Hypertension Acute kidney injury Rheumatoid arthritis Hyperkalemia: was given kayexalate, will recheck - Pulmonary is following - Patient is intubated and on mechanical ventilation - Discontinued lisinopril - On Solu-Medrol and Benadryl - Started on blood pressure medications - Patient is on IV fluid - Continue methotrexate DVT prophylaxis - Lovenox Disposition - Continue ICU care History Interval history: Patient was seen and evaluated this morning, patient is intubated and on CPAP, patient is alert and understands. The swelling around the neck decrease in size. Hospitalist Physical - Physical exam Narrative exam: Patient is intubated and on CPAP, she has swelling of the face and neck but improved from yesterday. The patient is obese. Vital signs as documented. Head exam is unremarkable. No scleral icterus . Neck is without jugular venous distension, thyromegaly, or carotid bruits. Lungs are clear to auscultation. Cardiac exam reveals regular rate and Rhythm. First and second heart sounds normal. No murmurs, rubs or gallops. Abdominal exam reveals normal bowel sounds, no masses, no organomegaly and no aortic enlargement. Extremities are nonedematous and both femoral and pedal pulses are normal. 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 - Constitutional Vitals: Temp Pulse Resp BP Pulse Ox 98.7 F 69 11 L 199/73 100 03/29/17 12:00 03/29/17 14:01 03/29/17 14:01 03/29/17 14:01 03/29/17 14:01 General appearance: Present: severe distress, well-nourished Results - Labs CBC & Chem 7: 03/29/17 04:15 03/29/17 04:15 Labs: Laboratory Last Values WBC 9.9 K/mm3 (4.5-11.0) 03/29/17 04:15 RBC 4.58 M/mm3 (3.65-5.03) 03/29/17 04:15 Hgb 10.2 gm/dl (10.1-14.3) 03/29/17 04:15 Hct 32.1 % (30.3-42.9) 03/29/17 04:15 MCV 70 fl (79-97) L 03/29/17 04:15 MCH 22 pg (28-32) L 03/29/17 04:15 MCHC 32 % (30-34) 03/29/17 04:15 RDW 16.6 % (13.2-15.2) H 03/29/17 04:15 Plt Count 159 K/mm3 (140-440) D 03/29/17 04:15 Lymph % (Auto) 7.3 % (13.4-35.0) L 03/29/17 04:15 [place] % (Auto) 5.5 % (0.0-7.3) 03/29/17 04:15 Eos % (Auto) 0.0 % (0.0-4.3) 03/29/17 04:15 Baso % (Auto) 0.2 % (0.0-1.8) 03/29/17 04:15 Lymph # 0.7 K/mm3 (1.2-5.4) L 03/29/17 04:15 [place] # 0.5 K/mm3 (0.0-0.8) 03/29/17 04:15 Eos # 0.0 K/mm3 (0.0-0.4) 03/29/17 04:15 Baso # 0.0 K/mm3 (0.0-0.1) 03/29/17 04:15 Add Manual Diff Complete 03/27/17 05:23 Total Counted 100 03/27/17 05:23 Seg Neutrophils % 87.0 % (40.0-70.0) H 03/29/17 04:15 Seg Neuts % (Manual) 97.0 % (40.0-70.0) H 03/27/17 05:23 Band Neutrophils % 0 % 03/27/17 05:23 Lymphocytes % (Manual) 2.0 % (13.4-35.0) L 03/27/17 05:23 Reactive Lymphs % (Man) 0 % 03/27/17 05:23 Monocytes % (Manual) 1.0 % (0.0-7.3) 03/27/17 05:23 Eosinophils % (Manual) 0 % (0.0-4.3) 03/27/17 05:23 Basophils % (Manual) 0 % (0.0-1.8) 03/27/17 05:23 Metamyelocytes % 0 % 03/27/17 05:23 Myelocytes % 0 % 03/27/17 05:23 Promyelocytes % 0 % 03/27/17 05:23 Blast Cells % 0 % 03/27/17 05:23 Nucleated RBC % Not Reportable 03/27/17 05:23 Seg Neutrophils # 8.6 K/mm3 (1.8-7.7) H 03/29/17 04:15 Seg Neutrophils # Man 10.4 K/mm3 (1.8-7.7) H 03/27/17 05:23 Band Neutrophils # 0.0 K/mm3 03/27/17 05:23 Lymphocytes # (Manual) 0.2 K/mm3 (1.2-5.4) L 03/27/17 05:23 Abs React Lymphs (Man) 0.0 K/mm3 03/27/17 05:23 Monocytes # (Manual) 0.1 K/mm3 (0.0-0.8) 03/27/17 05:23 Eosinophils # (Manual) 0.0 K/mm3 (0.0-0.4) 03/27/17 05:23 Basophils # (Manual) 0.0 K/mm3 (0.0-0.1) 03/27/17 05:23 Metamyelocytes # 0.0 K/mm3 03/27/17 05:23 Myelocytes # 0.0 K/mm3 03/27/17 05:23 Promyelocytes # 0.0 K/mm3 03/27/17 05:23 Blast Cells # 0.0 K/mm3 03/27/17 05:23 WBC Morphology Not Reportable 03/27/17 05:23 Hypersegmented Neuts Not Reportable 03/27/17 05:23 Hyposegmented Neuts Not Reportable 03/27/17 05:23 Hypogranular Neuts Not Reportable 03/27/17 05:23 Smudge Cells Not Reportable 03/27/17 05:23 Toxic Granulation Not Reportable 03/27/17 05:23 Toxic Vacuolation Not Reportable 03/27/17 05:23 Dohle Bodies Not Reportable 03/27/17 05:23 Pelger-Huet Anomaly Not Reportable 03/27/17 05:23 Arcadio Rods Not Reportable 03/27/17 05:23 Platelet Estimate Consistent w auto 03/27/17 05:23 Clumped Platelets Not Reportable 03/27/17 05:23 Plt Clumps, EDTA Not Reportable 03/27/17 05:23 Large Platelets Not Reportable 03/27/17 05:23 Giant Platelets Not Reportable 03/27/17 05:23 Platelet Satelliting Not Reportable 03/27/17 05:23 Plt Morphology Comment Not Reportable 03/27/17 05:23 RBC Morphology Not Reportable 03/27/17 05:23 Dimorphic RBCs Not Reportable 03/27/17 05:23 Polychromasia Not Reportable 03/27/17 05:23 Hypochromasia 1+ 03/27/17 05:23 Poikilocytosis Not Reportable 03/27/17 05:23 Anisocytosis 1+ 03/27/17 05:23 Microcytosis 1+ 03/27/17 05:23 Macrocytosis Not Reportable 03/27/17 05:23 Spherocytes Not Reportable 03/27/17 05:23 Pappenheimer Bodies Not Reportable 03/27/17 05:23 Sickle Cells Not Reportable 03/27/17 05:23 Target Cells Not Reportable 03/27/17 05:23 Tear Drop Cells Not Reportable 03/27/17 05:23 Ovalocytes Not Reportable 03/27/17 05:23 Helmet Cells Not Reportable 03/27/17 05:23 [place] Bodies Not Reportable 03/27/17 05:23 [place] Rings Not Reportable 03/27/17 05:23 [place] Cells Not Reportable 03/27/17 05:23 Bite Cells Not Reportable 03/27/17 05:23 Crenated Cell Not Reportable 03/27/17 05:23 Elliptocytes Not Reportable 03/27/17 05:23 Acanthocytes (Spur) Not Reportable 03/27/17 05:23 Rouleaux Not Reportable 03/27/17 05:23 Hemoglobin C Crystals Not Reportable 03/27/17 05:23 Schistocytes Not Reportable 03/27/17 05:23 Malaria parasites Not Reportable 03/27/17 05:23 Russ Bodies Not Reportable 03/27/17 05:23 Hem Pathologist Commnt No 03/27/17 05:23 POC ABG pH 7.452 (7.35-7.45) H 03/29/17 13:00 POC ABG pCO2 33.6 (35-45) L 03/29/17 13:00 POC ABG pO2 106 (80-105) H 03/29/17 13:00 POC ABG HCO3 23.4 03/29/17 13:00 POC ABG Total CO2 24 03/29/17 13:00 POC ABG O2 Sat 98 03/29/17 13:00 POC ABG Base Excess -1 03/29/17 13:00 FiO2 25 % 03/29/17 13:00 Sodium 143 mmol/L (137-145) 03/29/17 04:15 Potassium 4.3 mmol/L (3.6-5.0) D 03/29/17 04:15 Chloride 108.4 mmol/L (98-107) H 03/29/17 04:15 Carbon Dioxide 21 mmol/L (22-30) L 03/29/17 04:15 Anion Gap 18 mmol/L 03/29/17 04:15 BUN 36 mg/dL (7-17) H 03/29/17 04:15 Creatinine 1.2 mg/dL (0.7-1.2) 03/29/17 04:15 Estimated GFR 59 ml/min 03/29/17 04:15 BUN/Creatinine Ratio 30.00 % 03/29/17 04:15 Glucose 109 mg/dL (65-100) H 03/29/17 04:15 Calcium 8.4 mg/dL (8.4-10.2) 03/29/17 04:15 Magnesium 2.70 mg/dL (1.7-2.3) H 03/24/17 12:05 Total Bilirubin 0.30 mg/dL (0.1-1.2) 03/24/17 12:05 Direct Bilirubin 0.2 mg/dL (0-0.2) 03/24/17 12:05 AST 20 units/L (5-40) 03/24/17 12:05 ALT 11 units/L (7-56) 03/24/17 12:05 Alkaline Phosphatase 78 units/L (35-129) 03/24/17 12:05 Total Creatine Kinase 169 units/L (30-135) H 03/28/17 17:19 CK-MB (CK-2) 3.0 ng/mL (0.0-4.0) 03/28/17 17:19 CK-MB (CK-2) Rel Index 1.7 (0-4) 03/28/17 17:19 Troponin T < 0.010 ng/mL (0.00-0.029) 03/28/17 17:19 Total Protein 8.6 g/dL (6.3-8.2) H 03/24/17 12:05 Albumin 4.0 g/dL (3.9-5) 03/24/17 12:05 Albumin/Globulin Ratio 0.9 % 03/24/17 12:05
[2017-03-29] MEDS: BENADRYL PO SCH ×2 (17:17→23:48)
[2017-03-29] MEDS: DELTASONE PO SCH ×2 (17:35→23:48)
[2017-03-29] MEDS: PEPCID PO SCH (23:46)
[2017-03-30] MEDS ORDERED: PERCOCET 5/325 PO PRN (00:21)
[2017-03-30 00:29] LABS: ISTAT Base Excess -2; ISTAT PCO2 37.2 (35-45); ISTAT PO2 111 (80-105); ISTAT SO2 98; ISTAT TCO2 24
[2017-03-30] MEDS: DUONEB *Not for PRN Use IH SCH ×3 (02:50→14:58)
[2017-03-30 04:30] LABS: Basophils % (Auto) 0.3 % (0.0-1.8); Eosinophils % (Auto) 0.1 % (0.0-4.3); Hematocrit 31.4 % (30.3-42.9); Hemoglobin 10.1 gm/dl (10.1-14.3); Mean Corpuscular HGB Conc 32 % (30-34); Red Blood Count 4.58 M/mm3 (3.65-5.03); Red Cell Distribution Width 16.4 % (13.2-15.2); White Blood Count 7.7 K/mm3 (4.5-11.0)
[2017-03-30 04:33] LABS: Anion Gap 14 mmol/L; Blood Urea Nitrogen 39 mg/dL (7-17); Calcium 8.3 mg/dL (8.4-10.2); Carbon Dioxide 25 mmol/L (22-30); Chloride 106.1 mmol/L (98-107); Glucose 122 mg/dL (65-100); Sodium 141 mmol/L (137-145)
[2017-03-30 05:16] LABS: Mean Corpuscular Hemoglobin 22 pg (28-32); Mean Corpuscular Volume 69 fl (79-97); Platelet Count 147 K/mm3 (140-440)
[2017-03-30] MEDS: DELTASONE PO SCH ×2 (06:54→12:22)
[2017-03-30] MEDS: BENADRYL PO SCH ×2 (06:55→12:22)
--- NOTE | 2017-03-30 07:50 | XRay Report ---
Single view chest: Compared to 03/29/17. History: Followup of respiratory failure. Findings: Cardiomegaly. Trachea is midline.. No consolidation, pneumothorax or pleural effusion. Impression: No acute cardiopulmonary findings.
[2017-03-30] MEDS ORDERED: LASIX PO SCH (10:00)
[2017-03-30] MEDS ORDERED: ZYLOPRIM PO SCH (10:00)
[2017-03-30] MEDS: PEPCID PO SCH (10:27)
[2017-03-30] MEDS: NORVASC PO SCH (10:28)
[2017-03-30] MEDS: ROBINUL PO SCH (10:29)
[2017-03-30] MEDS: COREG PO SCH (10:30)
--- NOTE | 2017-03-30 10:30 | Discharge Summary ---
Providers - Providers Date of Admission: 03/24/17 13:49 Date of discharge: 03/30/17 Attending physician: TESFAYE CHOUDHURY MD 03/30/17 07:12 Speech Therapy Evaluation and Treat [CONS] Urgent Reason For Exam: coughing when swallowing pills Primary care physician: DYE COLORIST FORMULATOR Hospitalization Reason for admission: acute respiratory failure secondary to untreated edema due to MARCUS inhibitor Condition: Stable Hospital course: 46-year-old -[place] female with past medical history significant for hypertension, lupus presented to the emergency department complaining of difficulty of swallowing her secretions, swelling of her face and her neck. Patient has been taking lisinopril 40 mg daily. While in the emergency department she was intubated and transferred to the ICU for the management of angioedema. Patient was admitted to the ICU and she was treated with Solu-Medrol, and change in her blood pressure medications and patient has been intubated and mechanically ventilated. Patient showed marked improvement in the swelling subsided. Genitals extubated yesterday and she has some hoarseness of voice. Speech evaluation was done and she has difficulty of swallowing solid foods. She was advised to stay one more day in the floor but the patient refused to stay. She understood the risk benefit of going home and she decided to go home. At the discharge I have changed her lisinopril to losartan and consult her about the dietary recommendation by speech evaluation and patient is discharged. Patient was hemodynamically stable at the time of discharge. No wheezing or difficulty of breathing. Disposition: TO HOME OR SELFCARE Time spent for discharge: 31 minutes - Discharge Diagnoses (1) Acute respiratory failure Status: Acute Qualifiers: Respiratory failure complication: hypoxia Qualified Code(s): J96.01 - Acute respiratory failure with hypoxia (2) Airway compromise Status: Acute (3) Angioedema Status: Acute Qualifiers: Encounter type: initial encounter Qualified Code(s): T78.3XXA - Angioneurotic edema, initial encounter (4) Obesity (BMI 30-39.9) Status: Acute Core Measure Documentation - Palliative Care Palliative Care/ Comfort Measures: Not Applicable - Core Measures Any of the following diagnoses?: none Exam - Physical Exam Narrative exam: Patient extubated yesterday, no swelling on the face or on the neck. Hoarse voice. The patient is obese. Vital signs as documented. Head exam is unremarkable. No scleral icterus . Neck is without jugular venous distension, thyromegaly, or carotid bruits. Lungs are clear to auscultation. Cardiac exam reveals regular rate and Rhythm. First and second heart sounds normal. No murmurs, rubs or gallops. Abdominal exam reveals normal bowel sounds, no masses, no organomegaly and no aortic enlargement. Extremities are nonedematous and both femoral and pedal pulses are normal. 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 - Constitutional Vitals: Temp Pulse Resp BP Pulse Ox 97.6 F 59 L 20 180/90 100 03/30/17 08:00 03/30/17 09:00 03/30/17 09:00 03/30/17 09:00 03/30/17 09:00 Plan Activity: no restrictions Weight Bearing Status: Full Weight Bearing Diet: low cholesterol, low salt Follow up with: PRIMARY CARE,MD [Primary Care Provider] - 3-5 Days Prescriptions: Losartan [Cozaar] 100 mg PO QDAY #30 tablet Prednisone [predniSONE 10 mg (6-Day Pack, 21 Tabs)] 10 mg PO .TAPER #1 tab.ds.pk
--- NOTE | 2017-03-30 13:52 | Progress Note ---
Assessment and Plan (1) Acute respiratory failure Current Visit: Yes Status: Acute Qualifiers: Respiratory failure complication: hypoxia Qualified Code(s): J96.01 - Acute respiratory failure with hypoxia Plan to address problem: - extubated - added prn racemic epinephrine - we will continue bronchodilators and pulmonary toilet - continue aspiration precautions - we will continue PPI antihistamine therapy as well as systemic steroids but begin taper - continue to follow off Antibiotics - stopped robinul and scopolamine for secretions (2) Angioedema Current Visit: Yes Status: Acute Qualifiers: Encounter type: initial encounter Qualified Code(s): T78.3XXA - Angioneurotic edema, initial encounter Plan to address problem: - as above (3) Anxiety Current Visit: Yes Status: Acute Plan to address problem: - scheduled seroquel - prn ativan (4) Obesity (BMI 30-39.9) Current Visit: Yes Status: Acute Plan to address problem: - weight loss +/- sleep clinic evaluation at discharge (5) Thrombocytopenia Current Visit: Yes Status: Acute Plan to address problem: - count increased - follow HIT assay - follow clinically (6) Discharge planning issues Current Visit: Yes Status: Acute Plan to address problem: - advised her to stay overnight on the floor while tapered off medications but she insist's on going home today - RN gave her very concise instructions on diet advancement as per the swallow therapist - adviced to avoid rechallenge with MARCUS-I Subjective Date of service: 03/30/17 Principal diagnosis: Acute Hypoxemic Respiratory Failure; Angioedema Interval history: Seen and examined at bedside; 24 hour events reviewed; nursing and respiratory care staff consulted; no adverse overnight events reported to me; failed swallow evaluation and cleared for thickened liquids; denies acute chest pains or increased SOB; voice still hoarse but no overt stridor; No n/V/F/C Objective Vital Signs - 12hr 03/30/17 03/30/17 03/30/17 02:00 02:31 02:50 Temperature Pulse Rate 63 55 L Pulse Rate [ 54 L Anterior Bilateral Throughout] Pulse Rate [ From Monitor] Respiratory 19 21 Rate Respiratory 19 Rate [Anterior Bilateral Throughout] Blood Pressure 149/82 149/82 O2 Sat by Pulse 99 99 Oximetry 03/30/17 03/30/17 03/30/17 03:00 03:31 04:00 Temperature 98.5 F Pulse Rate 55 L 55 L 54 L Pulse Rate [ 58 L Anterior Bilateral Throughout] Pulse Rate [ From Monitor] Respiratory 20 18 20 Rate Respiratory 18 Rate [Anterior Bilateral Throughout] Blood Pressure 151/79 151/79 142/76 O2 Sat by Pulse 99 99 99 Oximetry 03/30/17 03/30/17 03/30/17 04:31 05:00 05:31 Temperature Pulse Rate 58 L 56 L 57 L Pulse Rate [ Anterior Bilateral Throughout] Pulse Rate [ From Monitor] Respiratory 19 20 23 Rate Respiratory Rate [Anterior Bilateral Throughout] Blood Pressure 142/76 151/79 151/79 O2 Sat by Pulse 99 99 99 Oximetry 03/30/17 03/30/17 03/30/17 06:01 06:31 07:00 Temperature Pulse Rate 57 L 55 L 54 L Pulse Rate [ Anterior Bilateral Throughout] Pulse Rate [ From Monitor] Respiratory 19 19 19 Rate Respiratory Rate [Anterior Bilateral Throughout] Blood Pressure 156/87 156/87 169/87 O2 Sat by Pulse 100 100 100 Oximetry 03/30/17 03/30/17 03/30/17 07:19 07:20 07:31 Temperature Pulse Rate 55 L Pulse Rate [ 54 L Anterior Bilateral Throughout] Pulse Rate [ From Monitor] Respiratory 17 Rate Respiratory 18 Rate [Anterior Bilateral Throughout] Blood Pressure 159/85 O2 Sat by Pulse 100 100 Oximetry 03/30/17 03/30/17 03/30/17 07:40 08:00 08:31 Temperature 97.6 F Pulse Rate 53 L 62 Pulse Rate [ 55 L Anterior Bilateral Throughout] Pulse Rate [ 57 L From Monitor] Respiratory 19 20 Rate Respiratory 18 Rate [Anterior Bilateral Throughout] Blood Pressure 163/84 163/84 O2 Sat by Pulse 100 99 Oximetry 03/30/17 03/30/17 03/30/17 09:00 09:31 10:00 Temperature Pulse Rate 59 L 64 71 Pulse Rate [ Anterior Bilateral Throughout] Pulse Rate [ From Monitor] Respiratory 20 24 Rate Respiratory Rate [Anterior Bilateral Throughout] Blood Pressure 180/90 180/90 O2 Sat by Pulse 100 99 Oximetry 03/30/17 03/30/17 03/30/17 10:11 10:28 10:30 Temperature Pulse Rate 62 71 71 Pulse Rate [ Anterior Bilateral Throughout] Pulse Rate [ From Monitor] Respiratory 11 L Rate Respiratory Rate [Anterior Bilateral Throughout] Blood Pressure 180/90 168/88 168/88 O2 Sat by Pulse 100 Oximetry 03/30/17 03/30/17 03/30/17 10:31 11:09 12:00 Temperature 97.6 F Pulse Rate 62 Pulse Rate [ Anterior Bilateral Throughout] Pulse Rate [ From Monitor] Respiratory 16 Rate Respiratory Rate [Anterior Bilateral Throughout] Blood Pressure 168/88 151/107 O2 Sat by Pulse 100 99 Oximetry Constitutional: no acute distress, alert Eyes: non-icteric ENT: oropharynx moist Neck: supple, no lymphadenopathy Effort: normal Ascultation: Bilateral: clear Cardiovascular: regular rate and rhythm Gastrointestinal: normoactive bowel sounds, soft, non-tender, non-distended Integumentary: normal Extremities: no cyanosis, no edema, pulses normal, no ischemia or petechiae Neurologic: normal mental status, non-focal exam, pupils equal and round, motor strength normal and Psychiatric: other (flat) CBC and BMP: 03/30/17 03:51 03/30/17 03:51 ABG, PT/INR, D-dimer: ABG POC ABG pH 7.400 (7.35-7.45) 03/29/17 22:53 POC ABG pCO2 37.2 (35-45) 03/29/17 22:53 POC ABG pO2 111 (80-105) H 03/29/17 22:53 POC ABG HCO3 23.0 03/29/17 22:53 POC ABG Total CO2 24 03/29/17 22:53 POC ABG O2 Sat 98 03/29/17 22:53 Abnormal lab findings: Abnormal Labs 03/25/17 03/26/17 03/26/17 04:45 06:30 06:30 WBC 15.3 H Hgb 9.8 L MCV 70 L MCH 22 L RDW 16.7 H Plt Count 104 L Lymph % (Auto) 5.7 L [place] % (Auto) 7.5 H Lymph # 0.9 L [place] # 1.2 H Seg Neutrophils % 86.8 H Seg Neuts % (Manual) Lymphocytes % (Manual) Seg Neutrophils # 13.3 H Seg Neutrophils # Man Lymphocytes # (Manual) POC ABG pH POC ABG pCO2 POC ABG pO2 327 H Sodium Potassium 5.4 H Chloride Carbon Dioxide 19 L BUN 28 H Creatinine 1.5 H Glucose 122 H Calcium 8.0 L Total Creatine Kinase 03/27/17 03/27/17 03/27/17 05:02 05:23 05:23 WBC Hgb 9.9 L MCV 73 L D MCH 22 L RDW 17.0 H Plt Count 72 L Lymph % (Auto) [place] % (Auto) Lymph # [place] # Seg Neutrophils % Seg Neuts % (Manual) 97.0 H Lymphocytes % (Manual) 2.0 L Seg Neutrophils # 9.6 H Seg Neutrophils # Man 10.4 H Lymphocytes # (Manual) 0.2 L POC ABG pH 7.344 L POC ABG pCO2 POC ABG pO2 135 H Sodium 136 L Potassium Chloride Carbon Dioxide 17 L BUN 30 H Creatinine 1.4 H Glucose 146 H Calcium 7.9 L Total Creatine Kinase 03/28/17 03/28/17 03/28/17 04:55 08:50 08:50 WBC 15.3 H Hgb MCV 68 L D MCH 22 L RDW 16.5 H Plt Count 57 L Lymph % (Auto) 6.4 L [place] % (Auto) Lymph # 1.0 L [place] # Seg Neutrophils % 87.8 H Seg Neuts % (Manual) Lymphocytes % (Manual) Seg Neutrophils # 13.4 H Seg Neutrophils # Man Lymphocytes # (Manual) POC ABG pH POC ABG pCO2 POC ABG pO2 124 H Sodium Potassium 6.3 H* D Chloride 109.1 H Carbon Dioxide 18 L BUN 35 H Creatinine Glucose 101 H Calcium 8.2 L Total Creatine Kinase 03/28/17 03/28/17 03/29/17 12:43 17:19 04:15 WBC Hgb MCV 70 L MCH 22 L RDW 16.6 H Plt Count Lymph % (Auto) 7.3 L [place] % (Auto) Lymph # 0.7 L [place] # Seg Neutrophils % 87.0 H Seg Neuts % (Manual) Lymphocytes % (Manual) Seg Neutrophils # 8.6 H Seg Neutrophils # Man Lymphocytes # (Manual) POC ABG pH 7.465 H POC ABG pCO2 29.5 L POC ABG pO2 131 H Sodium Potassium Chloride Carbon Dioxide BUN Creatinine Glucose Calcium Total Creatine Kinase 169 H 03/29/17 03/29/17 03/29/17 04:15 05:22 13:00 WBC Hgb MCV MCH RDW Plt Count Lymph % (Auto) [place] % (Auto) Lymph # [place] # Seg Neutrophils % Seg Neuts % (Manual) Lymphocytes % (Manual) Seg Neutrophils # Seg Neutrophils # Man Lymphocytes # (Manual) POC ABG pH 7.482 H 7.452 H POC ABG pCO2 31.2 L 33.6 L POC ABG pO2 150 H 106 H Sodium Potassium Chloride 108.4 H Carbon Dioxide 21 L BUN 36 H Creatinine Glucose 109 H Calcium Total Creatine Kinase 03/29/17 03/30/17 03/30/17 22:53 03:51 03:51 WBC Hgb MCV 69 L MCH 22 L RDW 16.4 H Plt Count Lymph % (Auto) 8.3 L [place] % (Auto) Lymph # 0.6 L [place] # Seg Neutrophils % 85.6 H Seg Neuts % (Manual) Lymphocytes % (Manual) Seg Neutrophils # Seg Neutrophils # Man Lymphocytes # (Manual) POC ABG pH POC ABG pCO2 POC ABG pO2 111 H Sodium Potassium Chloride Carbon Dioxide BUN 39 H Creatinine Glucose 122 H Calcium 8.3 L Total Creatine Kinase Chest x-ray: image reviewed
[2017-03-30] MEDS ORDERED: APRESOLINE PO SCH (14:00)
[2017-03-30 14:23] VITALS: BP 174/106
[2017-03-30 17:29] LABS: Heparin-Induced Platelet Antib Weak Positive (Negative); Unfractionated Heparin Negative (Negative)
[2017-03-31] MEDS ORDERED: METHOTREXATE(DOSE WEEKLY ONLY) PO SCH (10:00)
[2017-03-31] MEDS ORDERED: CATAPRES-TTS PATCH TD SCH (10:00)
== END 2017-03-30 14:20 | disposition home or self-care (01) | DRG 207 ==
LOC: ED 12:10 → CC1 13:49
PROVIDERS: ADMIT Internal Medicine; ATTEND Internal Medicine
PROC: 5A1955Z Respiratory Ventilation, Greater than 96 Consecutive Hours (ICD-10-PCS; principal; 2017-03-24)
PROC: 0BH17EZ Insertion of Endotracheal Airway into Trachea, Via Natural or Artificial Opening (ICD-10-PCS; 2017-03-24)
PROC: 4A033R1 Measurement of Arterial Saturation, Peripheral, Percutaneous Approach (ICD-10-PCS; 2017-03-24)
DX: J96.01 Acute respiratory failure with hypoxia (principal); N17.9 Acute kidney failure, unspecified; T78.3XXA Angioneurotic edema, initial encounter; J44.9 Chronic obstructive pulmonary disease, unspecified; I10 Essential (primary) hypertension; M06.9 Rheumatoid arthritis, unspecified; F41.9 Anxiety disorder, unspecified; E66.9 Obesity, unspecified; D69.6 Thrombocytopenia, unspecified; E87.5 Hyperkalemia; T46.4X5A Adverse effect of angiotensin-converting-enzyme inhibitors, initial encounter; Z88.8 Allergy status to other drugs, medicaments and biological substances; Z98.51 Tubal ligation status; Z90.721 Acquired absence of ovaries, unilateral; Z90.49 Acquired absence of other specified parts of digestive tract; Z87.891 Personal history of nicotine dependence; Z68.38 Body mass index [BMI] 38.0-38.9, adult; Y92.89 Other specified places as the place of occurrence of the external cause
CPT/HCPCS: 36415; 36600; 51702; 71010; 74000; 80048; 80074; 82550; 82553; 82803; 83735; 84484; 85007; 85025; 86022; 87070; 87076; 87186; 87205; 93005; 93010; 94002; 94003; 94640; 94760; 96374; 96375; 96376; G8996-GN; G8997-GN; J0330; J1100; J1170; J1200; J1650; J2060; J2250; J2405; J2704; J2930; J3010; J7030; J7512; J8610

== ENCOUNTER 2017-04-02 03:45 | Inpatient (IN) | payer MEDICARE ==
[2017-04-02 04:55] LABS: Basophils % (Auto) 0.3 % (0.0-1.8); Eosinophils % (Auto) 0.6 % (0.0-4.3); Hematocrit 33.5 % (30.3-42.9); Hemoglobin 10.7 gm/dl (10.1-14.3); Mean Corpuscular HGB Conc 32 % (30-34); Red Blood Count 4.87 M/mm3 (3.65-5.03); Red Cell Distribution Width 16.2 % (13.2-15.2); White Blood Count 14.4 K/mm3 (4.5-11.0)
[2017-04-02 04:56] LABS: Mean Corpuscular Hemoglobin 22 pg (28-32); Mean Corpuscular Volume 69 fl (79-97); Platelet Count 173 K/mm3 (140-440)
[2017-04-02] MEDS ORDERED: PROVENTIL IH ONE ×2 (04:58→06:28)
[2017-04-02 05:13] LABS: Anion Gap 19 mmol/L; BUN/Creatinine Ratio 22.85; Blood Urea Nitrogen 32 mg/dL (7-17); Calcium 8.5 mg/dL (8.4-10.2); Carbon Dioxide 26 mmol/L (22-30); Chloride 101.4 mmol/L (98-107); Glucose 93 mg/dL (65-100); Potassium 3.9 mmol/L (3.6-5.0); Sodium 142 mmol/L (137-145)
[2017-04-02] MEDS ORDERED: ROBITUSSIN AC PO ONE (06:53)
[2017-04-02] MEDS ORDERED: NACL 0.9% 1000 ML 1,000 ML IV ONE (06:54)
--- NOTE | 2017-04-02 06:59 | Emergency Department Report ---
HPI - General Chief Complaint: Dyspnea/Respdistress Time Seen by Provider: 04/02/17 06:43 - HPI HPI: This is a 46-year-old -[place] female presents to the emergency department from home with complaint of some shortness of breath, cough and discomfort to the throat. The patient was recently discharged from [facility] 3 days ago, on March 30, after the patient was here for significant angioedema secondary to lisinopril and had been intubated for almost 1 week. She is not taken any further MARCUS inhibitor's. She otherwise has not taken anything for these current symptoms prior to presentation. She has a past medical history of lupus and hypertension. Her primary care physician is Dr. Matute but she has not been able to see them regarding her symptoms. No recent travel. She denies any problems swallowing or any drooling or trismus. ED Past Medical Hx - Past Medical History Hx Hypertension: Yes Hx Congestive Heart Failure: No Hx Diabetes: No Hx Renal Disease: Yes Hx Asthma: Yes Hx COPD: No Additional medical history: lupus - Surgical History Hx Cholecystectomy: Yes Additional Surgical History: TUBAL LIGATION. LEFT OVARY REMOVED. LEFT FOOT RECONSTRUCTION - Social History Smoking Status: Never Smoker - Medications Home Medications: Home Medications Medication Instructions Recorded Confirmed Last Taken Type Furosemide [Lasix] 40 mg PO QDAY 11/10/13 04/02/17 04/02/17 History Hydroxychloroquine [Plaquenil] 200 mg PO QDAY 11/10/13 04/02/17 04/02/17 History Losartan [Cozaar] 100 mg PO QDAY #30 tablet 03/30/17 04/02/17 04/02/17 Rx Alendronate Sodium [Fosamax] 70 mg PO QWEEK 04/02/17 04/02/17 04/02/17 History Metoprolol Xl [Metoprolol 50 mg PO QDAY 04/02/17 04/02/17 04/02/17 History SUCCINATE ER TAB] amLODIPine [Norvasc] 10 mg PO DAILY 04/02/17 04/02/17 04/02/17 History predniSONE [Deltasone] 5 mg PO QDAY 04/02/17 04/02/17 04/02/17 History sulfaSALAzine [Azulfidine] 500 mg PO DAILY 04/02/17 04/02/17 04/02/17 History ED Review of Systems ROS: Stated complaint: SOB Other details as noted in HPI Comment: All other systems reviewed and negative Constitutional: denies: chills, fever Eyes: denies: eye pain, eye discharge, vision change ENT: throat pain. denies: ear pain Respiratory: cough, shortness of breath Cardiovascular: denies: palpitations, edema Gastrointestinal: denies: abdominal pain, nausea, diarrhea Genitourinary: denies: urgency, dysuria, discharge Musculoskeletal: denies: back pain, joint swelling, arthralgia Skin: denies: rash, lesions Neurological: denies: headache, weakness, paresthesias Physical Exam - Physical Exam Vital Signs: Vital Signs 04/02/17 04/02/17 04/02/17 04:12 05:00 06:31 Temperature 98.9 F Pulse Rate 103 H 100 H Pulse Rate [ 87 Throughout] Respiratory 24 22 Rate Respiratory 22 Rate [ Throughout] Blood Pressure 145/96 O2 Sat by Pulse 100 98 Oximetry Physical Exam: GENERAL: The patient is well-developed well-nourished. HEENT: Normocephalic. Atraumatic. Extraocular motions are intact. Patient has moist mucous membranes. Pupils equal reactive to light bilaterally. Oropharynx is clear without tonsillar hypertrophy, erythema or exudates. Stridor heard. NECK: Supple. Trachea is midline. CHEST/LUNGS: Clear to auscultation. There is a croup-like cough heard coming from the upper airway. There is tachypnea but no accessory muscle use. There is no respiratory distress noted. HEART/CARDIOVASCULAR: Regular. There is mild tachycardia. There is no gallop rub or murmur. ABDOMEN: Abdomen is soft, nontender. Patient has normal bowel sounds. There is no abdominal distention. SKIN: Skin is warm and dry. NEURO: The patient is awake, alert, and oriented. The patient is cooperative. The patient has no focal neurologic deficits. The patient has normal speech. MUSCULOSKELETAL: There is no tenderness or deformity. There is no limitation range of motion. There is no evidence of acute injury. ED Course Vital Signs 04/02/17 04/02/17 04/02/17 04:12 05:00 06:31 Temperature 98.9 F Pulse Rate 103 H 100 H Pulse Rate [ 87 Throughout] Respiratory 24 22 Rate Respiratory 22 Rate [ Throughout] Blood Pressure 145/96 O2 Sat by Pulse 100 98 Oximetry ED Medical Decision Making - Lab Data Result diagrams: 04/02/17 04:30 04/02/17 04:30 - EKG Data -: EKG Interpreted by Me EKG shows normal: sinus rhythm, axis (left axis deviation), intervals, QRS complexes (LVH), ST-T waves Rate: normal - EKG Data When compared to previous EKG there are: no significant change Interpretation: unchanged when compared t (03/28/17), LVH - Radiology Data Radiology results: image reviewed interpreted by me: Chest x-ray did not show any acute process. Heart is normal shape and size. No effusions. No pneumothorax. No signs of pneumonia seen. X-ray of the neck does not show any acute process, foreign body or airway narrowing. - Medical Decision Making 46-year-old female presents emergency Department with some shortness of breath, throat discomfort and eventually complained of some chest discomfort after the patient was extubated and then recently discharged secondary to angioedema. Patient has some bronchospasm but also has some stridorous sounds. She was given steroids, IV fluid, albuterol and racemic epinephrine. Upon reevaluation she is still not improved and appears uncomfortable. There is concern that the patient might worsen and have some type of airway compromise. For this reason the patient will be admitted to the hospital for further evaluation and treatment and has been accepted for admission by the hospitalist nurse practitioner and allowed me to place bridging orders under Dr. Moses. Critical Care Time: No Critical care attestation.: If time is entered above; I have spent that time in minutes in the direct care of this critically ill patient, excluding procedure time. ED Disposition Clinical Impression: Postextubation stridor, Shortness of breath, Bronchospasm HTN (hypertension) Qualifiers: Hypertension type: essential hypertension Qualified Code(s): I10 - Essential ( primary) hypertension Disposition: OP ADMIT IP TO THIS HOSP Is pt being admited?: Yes Condition: Stable Time of Disposition: 08:14
[2017-04-02] MEDS ORDERED: S2 RACEPINEPHRINE 2.25% IH ONE (07:14)
--- NOTE | 2017-04-02 07:29 | XRay Report ---
AP CHEST: HISTORY: Shortness of breath AP view of the chest demonstrates a normal mediastinal and cardiac contour with clear lungs and normal bony and soft tissue structures. IMPRESSION: Unremarkable AP chest.
--- NOTE | 2017-04-02 07:32 | XRay Report ---
AP AND LATERAL SOFT TISSUES OF THE NECK: History: Shortness of breath, dysphagia. An IV overlies the posterior larynx on the lateral view which limits this film significantly. The base of the tongue, epiglottis, prevertebral soft tissues and lateral view of the trachea are within normal limits. There is no obvious radiopaque foreign body. IMPRESSION: No abnormality identified.
[2017-04-02] MEDS ORDERED: NON-FORMULARY (Tizanidine Hcl [Zanaflex] 4 MG) PO PRN (09:01)
[2017-04-02] MEDS ORDERED: MILK OF MAGNESIA PO PRN (10:00)
[2017-04-02] MEDS ORDERED: LOPRESSOR PO SCH (10:00)
[2017-04-02] MEDS ORDERED: DULCOLAX PR PRN (10:00)
[2017-04-02] MEDS ORDERED: COZAAR PO SCH (10:00)
[2017-04-02] MEDS ORDERED: TYLENOL PO PRN (10:00)
[2017-04-02] MEDS ORDERED: ROBITUSSIN AC PO PRN (10:00)
[2017-04-02] MEDS ORDERED: VITAMIN D2 PO SCH ×2 (10:00→12:00)
[2017-04-02] MEDS ORDERED: NON-FORMULARY (Losartan [Cozaar] 100 MG) PO SCH (10:00)
[2017-04-02] MEDS ORDERED: ZANAFLEX PO PRN (11:00)
[2017-04-02] MEDS ORDERED: ZOFRAN IV PRN (11:00)
--- NOTE | 2017-04-02 11:03 | Nuclear Medicine Report ---
LUNG SCAN, VENTILATION AND PERFUSION: History: Chest pain. Technique: 5mci of Tc99m MAA was infused for the perfusion images. 15mci XE 133 gas was inhaled for the ventilatory images. Correlation is made with a chest x-ray dated 04/02/17. Findings: Inhalation of Xenon gas demonstrates a normal distribution of the activity throughout both lungs. The wash out phases show no focal retention of activity. After injection of Technetium 99m macroaggregated albumin gamma camera imaging of the lungs in multiple projections demonstrates normal pulmonary contours with a homogeneous distribution of activity. No focal areas of perfusion deficiency are identified. IMPRESSION: Low probability for pulmonary embolus.
--- NOTE | 2017-04-02 13:08 | History and Physical Report ---
<ARCHANA SALDAÑA - Last Filed: 04/02/17 13:51> History of Present Illness Date of examination: 04/02/17 Date of admission: 04/02/17 07:19 Chief complaint: Chest pain, shortness of breath, cough and feeling something in on her throat History of present illness: Patient is a 46 years old female with past medical history of hypertension and lupus who presents to the emergency department for complaining chest pain and feeling post extubated throat discomfort. The character pain began in the midsternal area and radiated up to her neck.She states that the pain began two days ago and consisted of a dull pain. The onset of pain came while the patient was walking in her home. 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 Her discomfort was accompanied by shortness of breath, sweating, nausea, and vomiting. No alleviating factors . She does not attempted to relieve her pain, other than rest. She describes no other associated symptoms during these episodes of pain, including dizziness, or palpitations. She becomes short of breath during these Relevant positive and negative ROS for this complaint episodes but describes no other exertional dyspnea, orthopnea. Patient also complains post-intubation throat discomfort. patient was recently discharged from here 3 days ago on March 30. Patient was admitted for angioedema secondary to lisinopril and had intubated for about 7 days. Past History Past Medical History: hypertension, other (lupus, angioedema related to lisinopril) Past Surgical History: No surgical history Social history: lives with family Family history: hypertension Medications and Allergies Allergies Allergy/AdvReac Type Severity Reaction Status Date / Time lisinopril Allergy Angioedema Verified 04/02/17 08:58 Home Medications Medication Instructions Recorded Confirmed Last Taken Type Furosemide [Lasix] 40 mg PO QDAY 11/10/13 04/02/17 04/02/17 History Hydroxychloroquine [Plaquenil] 200 mg PO QDAY 11/10/13 04/02/17 04/02/17 History Losartan [Cozaar] 100 mg PO QDAY #30 tablet 03/30/17 04/02/17 04/02/17 Rx Alendronate Sodium [Fosamax] 70 mg PO QWEEK 04/02/17 04/02/17 04/02/17 History Metoprolol Xl [Metoprolol 50 mg PO QDAY 04/02/17 04/02/17 04/02/17 History SUCCINATE ER TAB] amLODIPine [Norvasc] 10 mg PO DAILY 04/02/17 04/02/17 04/02/17 History predniSONE [Deltasone] 5 mg PO QDAY 04/02/17 04/02/17 04/02/17 History sulfaSALAzine [Azulfidine] 500 mg PO DAILY 04/02/17 04/02/17 04/02/17 History Active Meds: Active Medications Acetaminophen (Tylenol) 650 mg PO Q4H PRN PRN Reason: Pain MILD(1-3)/Fever >100.5/JOHNSON Alendronate Sodium (Fosamax) 70 mg PO QWEEK KAMARI Allopurinol (Zyloprim) 100 mg PO QDAY [facility] Amlodipine Besylate (Norvasc) 10 mg PO DAILY [facility] Bisacodyl (Dulcolax) 10 mg CO QDAY PRN PRN Reason: Constipation unrelieved by MOM Ergocalciferol (Vitamin D2) 50,000 unit PO Mo K[facility]I Folic Acid (Folvite) 1 mg PO QDAY [facility] Heparin Sodium (Porcine) (Heparin) 5,000 unit SUB-Q Q12HR KAMARI Hydroxychloroquine Sulfate (Plaquenil) 200 mg PO QDAY K[facility]ARI Losartan Potassium (Cozaar) 100 mg PO QDAY [facility] Magnesium Hydroxide (Milk Of Magnesia) 30 ml PO Q4H PRN PRN Reason: Constipation Methotrexate (Methotrexate(Dose Weekly Only)) 10 mg PO QWEEK [facility] Methylprednisolone Sodium Succinate (Solu-Medrol) 40 mg IV Q8HR [facility] Metoprolol Succinate (Toprol Xl) 50 mg PO QDAY [facility] Ondansetron HCl (Zofran) 4 mg IV Q4H PRN PRN Reason: Vomiting Pseudoephedrine/Acetam/Chlorphenir (Robitussin Ac) 5 ml PO Q4H PRN PRN Reason: Cough Tizanidine HCl (Zanaflex) 4 mg PO Q8H PRN PRN Reason: Muscle Spasm Review of Systems Constitutional: poor appetite, no weight loss, no weight gain, no fever, no chills Ears, nose, mouth and throat: no ear pain, no ear discharge Breasts: normal Cardiovascular: chest pain, shortness of breath, no palpitations, no edema, no syncope, no lightheadedness Respiratory: cough, shortness of breath Gastrointestinal: nausea, vomiting, no constipation, no change in bowel habits Genitourinary Female: no dysmenorrhea, no pelvic pain, no flank pain, no menorrhagia Menstruation: no currently menstrual, no premenarcheal, no post hysterectomy, no ammenorrhea Rectal: no pain, no incontinence Musculoskeletal: no neck stiffness, no neck pain, no shooting arm pain Integumentary: no deferred, no rash, no pruritis, no redness Neurological: no head injury, no transient paralysis, no paralysis, no weakness Psychiatric: no anxiety, no memory loss, no change in sleep habits, no sleep disturbances Endocrine: no cold intolerance, no heat intolerance, no polyphagia Hematologic/Lymphatic: no easy bruising, no easy bleeding Allergic/Immunologic: no urticaria, no allergic rhinitis Exam - Constitutional Vitals: Temp Pulse Resp BP Pulse Ox 97.7 F 88 18 167/87 99 04/02/17 12:33 04/02/17 12:33 04/02/17 12:33 04/02/17 12:33 04/02/17 12:33 General appearance: Present: mild distress - EENT Eyes: Present: PERRL ENT: hearing intact - Neck Neck: Present: supple - Respiratory Respiratory effort: normal, stridor (post extubated) - Cardiovascular Heart rate: 88 Rhythm: regular - Extremities Extremities: no ischemia, No edema Peripheral Pulses: within normal limits - Abdominal General gastrointestinal: Present: soft, non-tender Female genitourinary: Present: deferred - Rectal Rectal Exam: deferred - Integumentary Integumentary: Present: clear, warm, dry - Musculoskeletal Musculoskeletal: strength equal bilaterally - Psychiatric Psychiatric: appropriate mood/affect - Neurologic Neurologic: CNII-XII intact - Allied Health Allied health notes reviewed: nursing Results - Labs CBC & Chem 7: 04/02/17 04:30 04/02/17 04:30 Labs: Laboratory Last Values WBC 14.4 K/mm3 (4.5-11.0) H 04/02/17 04:30 RBC 4.87 M/mm3 (3.65-5.03) 04/02/17 04:30 Hgb 10.7 gm/dl (10.1-14.3) 04/02/17 04:30 Hct 33.5 % (30.3-42.9) 04/02/17 04:30 MCV 69 fl (79-97) L 04/02/17 04:30 MCH 22 pg (28-32) L 04/02/17 04:30 MCHC 32 % (30-34) 04/02/17 04:30 RDW 16.2 % (13.2-15.2) H 04/02/17 04:30 Plt Count 173 K/mm3 (140-440) 04/02/17 04:30 Lymph % (Auto) 20.1 % (13.4-35.0) 04/02/17 04:30 Fergus % (Auto) 9.5 % (0.0-7.3) H 04/02/17 04:30 Eos % (Auto) 0.6 % (0.0-4.3) 04/02/17 04:30 Baso % (Auto) 0.3 % (0.0-1.8) 04/02/17 04:30 Lymph # 2.9 K/mm3 (1.2-5.4) 04/02/17 04:30 Fergus # 1.4 K/mm3 (0.0-0.8) H 04/02/17 04:30 Eos # 0.1 K/mm3 (0.0-0.4) 04/02/17 04:30 Baso # 0.0 K/mm3 (0.0-0.1) 04/02/17 04:30 Seg Neutrophils % 69.5 % (40.0-70.0) 04/02/17 04:30 Seg Neutrophils # 10.1 K/mm3 (1.8-7.7) H 04/02/17 04:30 Sodium 142 mmol/L (137-145) 04/02/17 04:30 Potassium 3.9 mmol/L (3.6-5.0) 04/02/17 04:30 Chloride 101.4 mmol/L (98-107) 04/02/17 04:30 Carbon Dioxide 26 mmol/L (22-30) 04/02/17 04:30 Anion Gap 19 mmol/L 04/02/17 04:30 BUN 32 mg/dL (7-17) H 04/02/17 04:30 Creatinine 1.4 mg/dL (0.7-1.2) H 04/02/17 04:30 Estimated GFR 49 ml/min 04/02/17 04:30 BUN/Creatinine Ratio 22.85 % 04/02/17 04:30 Glucose 93 mg/dL (65-100) 04/02/17 04:30 Calcium 8.5 mg/dL (8.4-10.2) 04/02/17 04:30 Troponin T < 0.010 ng/mL (0.00-0.029) 04/02/17 04:30 - Imaging and Cardiology Abdominal x-ray: image reviewed (unremarkable AP chest and normal x-ray) CT scan - chest: image reviewed (VQ scan low probability for pulmonary embolism) Assessment and Plan Assessment and plan: ASSESSMENT/PLAN 1.Chest Pain 12 lead EKG obtained we also get another EKG doctor for any changes have taken since the first obtained We will admit to telemetry We will do serial cardiac enzymes and follow cardiac enzymes troponin Stress test ordered Doppler VL ordered Normal VQ scan 2. Post-extubation airway compromise Patient had Angioedema secondary to lisinopril and was intubated for 7 days but patient still has throat discomfort Patient currently on 2 LNC with oxygen saturation >95%, No acute respiratory distress noted. Neck x-ray normal Chest X-ray shows unremarkable AP chest Frequent airway assessment Swallow evaluation ordered 3. Acute renal failure Elevated BUN/ creatinine Gently IV fluid hydration Nephrology consult 4. Hypertension We will resume antihypertensive home medicine 5. Lupus We will resume home meds 6. DVT prophylaxis Heparin Full code Advance Directives: Yes <OLGA PACK M - Last Filed: 04/03/17 10:40> History of Present Illness Date of admission: 04/02/17 07:19 Medications and Allergies Active Meds: Active Medications Acetaminophen (Tylenol) 650 mg PO Q4H PRN PRN Reason: Pain MILD(1-3)/Fever >100.5/JOHNSON Alendronate Sodium (Fosamax) 70 mg PO Tu@0700 [facility] Allopurinol (Zyloprim) 100 mg PO QDAY [facility] Last Admin: 04/02/17 16:43 Dose: 100 mg Amlodipine Besylate (Norvasc) 10 mg PO DAILY [facility] Last Admin: 04/02/17 16:42 Dose: 10 mg Bisacodyl (Dulcolax) 10 mg CO QDAY PRN PRN Reason: Constipation unrelieved by MOM Ergocalciferol (Vitamin D2) 50,000 unit PO Mo [facility] Last Admin: 04/02/17 14:04 Dose: 50,000 unit Folic Acid (Folvite) 1 mg PO QDAY [facility] Last Admin: 04/02/17 16:44 Dose: 1 mg Heparin Sodium (Porcine) (Heparin) 5,000 unit SUB-Q Q12HR [facility] Last Admin: 04/02/17 21:03 Dose: 5,000 unit Hydroxychloroquine Sulfate (Plaquenil) 200 mg PO QDAY [facility] Last Admin: 04/02/17 16:43 Dose: 200 mg Levetiracetam (Keppra) 500 mg PO BID [facility] Last Admin: 04/02/17 21:06 Dose: 500 mg Lorazepam (Ativan) 1 mg PO QHS [facility] Last Admin: 04/02/17 21:05 Dose: 1 mg Lorazepam (Ativan) 1 mg IV Q1H PRN PRN Reason: Agitation Last Admin: 04/02/17 22:39 Dose: 1 mg Losartan Potassium (Cozaar) 100 mg PO QDAY [facility] Last Admin: 04/02/17 16:41 Dose: 100 mg Magnesium Hydroxide (Milk Of Magnesia) 30 ml PO Q4H PRN PRN Reason: Constipation Methotrexate (Methotrexate(Dose Weekly Only)) 10 mg PO Tu@1000 [facility] Methylprednisolone Sodium Succinate (Solu-Medrol) 40 mg IV Q8HR [facility] Last Admin: 04/02/17 21:06 Dose: 40 mg Metoprolol Succinate (Toprol Xl) 50 mg PO QDAY [facility] Last Admin: 04/02/17 16:41 Dose: 50 mg Ondansetron HCl (Zofran) 4 mg IV Q4H PRN PRN Reason: Vomiting Pseudoephedrine/Acetam/Chlorphenir (Robitussin Ac) 5 ml PO Q4H PRN PRN Reason: Cough Tizanidine HCl (Zanaflex) 4 mg PO Q8H PRN PRN Reason: Muscle Spasm Last Admin: 04/02/17 16:43 Dose: 4 mg Exam - Constitutional Vitals: Temp Pulse Resp BP Pulse Ox 98.5 F 101 H 18 144/82 99 04/02/17 19:56 04/02/17 19:56 04/02/17 19:56 04/02/17 19:56 04/02/17 22:00 Results - Labs CBC & Chem 7: 04/03/17 07:50 04/03/17 07:50 Labs: Laboratory Last Values WBC 14.4 K/mm3 (4.5-11.0) H 04/02/17 04:30 RBC 4.87 M/mm3 (3.65-5.03) 04/02/17 04:30 Hgb 10.7 gm/dl (10.1-14.3) 04/02/17 04:30 Hct 33.5 % (30.3-42.9) 04/02/17 04:30 MCV 69 fl (79-97) L 04/02/17 04:30 MCH 22 pg (28-32) L 04/02/17 04:30 MCHC 32 % (30-34) 04/02/17 04:30 RDW 16.2 % (13.2-15.2) H 04/02/17 04:30 Plt Count 173 K/mm3 (140-440) 04/02/17 04:30 Lymph % (Auto) 20.1 % (13.4-35.0) 04/02/17 04:30 Fergus % (Auto) 9.5 % (0.0-7.3) H 04/02/17 04:30 Eos % (Auto) 0.6 % (0.0-4.3) 04/02/17 04:30 Baso % (Auto) 0.3 % (0.0-1.8) 04/02/17 04:30 Lymph # 2.9 K/mm3 (1.2-5.4) 04/02/17 04:30 Fergus # 1.4 K/mm3 (0.0-0.8) H 04/02/17 04:30 Eos # 0.1 K/mm3 (0.0-0.4) 04/02/17 04:30 Baso # 0.0 K/mm3 (0.0-0.1) 04/02/17 04:30 Seg Neutrophils % 69.5 % (40.0-70.0) 04/02/17 04:30 Seg Neutrophils # 10.1 K/mm3 (1.8-7.7) H 04/02/17 04:30 Sodium 142 mmol/L (137-145) 04/02/17 04:30 Potassium 3.9 mmol/L (3.6-5.0) 04/02/17 04:30 Chloride 101.4 mmol/L (98-107) 04/02/17 04:30 Carbon Dioxide 26 mmol/L (22-30) 04/02/17 04:30 Anion Gap 19 mmol/L 04/02/17 04:30 BUN 32 mg/dL (7-17) H 04/02/17 04:30 Creatinine 1.4 mg/dL (0.7-1.2) H 04/02/17 04:30 Estimated GFR 49 ml/min 04/02/17 04:30 BUN/Creatinine Ratio 22.85 % 04/02/17 04:30 Glucose 93 mg/dL (65-100) 04/02/17 04:30 Calcium 8.5 mg/dL (8.4-10.2) 04/02/17 04:30 Troponin T < 0.010 ng/mL (0.00-0.029) 04/02/17 04:30 Assessment and Plan Assessment and plan: I saw and evaluated the patient. I agree with the findings and the plan of care as documented in the Nurse Practitioner's~note, with the following corrections and additions. status epilepticus * The patient went on to have three seizures while in hospital- tonic clonic, 2 observed by RN and one by myself which broke with ativan * start on Keppra and will give ativan as needed, obtain EEG, MRI brain and Neurology consult Angioedema/SOB * No stridor on my exam, continue steroid taper, given angiodema due to MARCUS-I Chest pain * serial trop negative * CXR neg * VQ scan low probablity * fup LE Duplex * Obtain stress test when clinically improved The high probability of a clinically significant, sudden or life threatening deterioration of the [neurology, cardiovascular ] system(s) required my full and direct attention, intervention and personal management. The aggregate critical care time was [33] minutes. This time is in addition to time spent performing reported procedures but includes the following: [x] Data Review and interpretation [x] Patient assessment and monitoring of vital signs [x] Documentation [x] Medication orders and management VTE prophylaxis?: Chemical Plan of care discussed with patient/family: Yes
[2017-04-02] MEDS ORDERED: HEPARIN SUB-Q SCH (14:00)
[2017-04-02] MEDS ORDERED: TOPROL XL PO SCH (16:00)
--- NOTE | 2017-04-02 16:02 | Admit Criteria Form ---
Admission Criteria Documentation: PULMONARY DISEASE GRG Clinical Indications for Admission to Inpatient Care ( Place 'X' for any and all applicable criteria): Hospital admission is needed for appropriate care of the patient because of 1 or more of the following(1)(2): [ ]I. Impending or actual respiratory arrest. See Respiratory Failure GRG guideline for severe respiratory disease and long-term mechanical ventilation patients. (3)(4) (5) [ ]II. Severe airflow or ventilation abnormalities (not responsive to emergency and observation care treatment as appropriate) as indicated by 1 or more of the following (6)(7)(8)(9) : [ ]a) PCO2 greater than 42 mm Hg (5.6 kPa) and pH less than 7.35 (new) [ ]b) Documented PCO2 increased more than 5 mm Hg (0.7 kPa) from disease baseline [ ]c) Airflow measurements[A] less than 60% of previous best or predicted (eg, peak expiratory flow rate less than 300 L/min) despite intensive emergent treatment(B) [ ]d) Required respiratory treatments that are performable only in acute inpatient setting [ X]III. Severe respiratory findings (not responsive to emergency and observation care treatment as appropriate) including 1 or more of the following(6)(9)(10): [ ]a) Respiratory distress as indicated by ALL of the following(6)(11): [ ]i) Patient with 1 or more of the following: [ ]1) Dyspnea (difficulty breathing) [ ]2) Tachypnea [ ]3) Abnormal breathing pattern (eg, chest retractions) [ ]4) Other evidence of difficulty breathing [ ]ii) Evidence of respiratory compromise indicated by 1 or more of the following: [ ]1) Hypoxemia [ ]2) Altered mental status [ ]3) Other evidence of respiratory compromise (eg, pulmonary edema on chest x-ray) [X ]b) Stridor [ ]c) Gross hemoptysis(12) [ ]d) Acute cyanosis [ ]IV. Chronic lung disease with severe deterioration (not responsive to emergency and observation care treatment as appropriate) as indicated by 1 or more of the following(7) (13): [ ]a) SaO2 5% below baseline in patient with chronic hypoxemia [ ]b) New requirement for supplemental oxygen to keep SaO2 at baseline or acceptable level [ ]c) Required supplemental oxygen performable only in acute inpatient setting [ ]d) Severe airflow or ventilation abnormalities [ ]e) Previouslymobile patient unable to walk between rooms [ ]f) Inability to eat or sleep due to dyspnea [ ]g) Altered mental status that is severe or persistent [ ]V. Empyema or lung abscess(14)(15) [ ]Vl. Severe atelectasis or lung collapse(16)(17) [ ]Rand. Tuberculosis requiring inpatient treatment as indicated by 1 or more of the following(18)(19)(20)(21): [ ]a) Diagnosis suspected (eg, symptomatic patient from endemic area or in high-risk population, with abnormal chest imaging) and cannot be ruled out within observation care timeframe (ie, sputum analysis, nucleic acid amplification techniques not rapidly available or not diagnostic) [ ]b) Severely symptomatic patient (eg, Hypoxemia, Hemodynamic instability, Tachypnea) [ ]c) Gzwte-quhr-mjwmrlwnv infection suspected in newly diagnosed patient (eg, treatment regimen may require near-term adjustment) [ ]d) Newly diagnosed patient at high-risk of short-term deterioration (eg, HIV positive, frail, immunocompromised, chronic lung disease) [ ]e) High infectivity suspected (eg, laryngeal disease, cavitary pulmonary lesions, ongoing positivity of sputum) and 1 or more of the following: [ ]i) Unexposed household contacts at high risk (eg, immunocompromised, elderly, infants, chronic lung disease) [ ]ii) Patient unable or unwilling to avoid exposing others (eg, significant psychiatric disease, substance abuse, developmental disability) [ ]f) Complication of tuberculosis requiring inpatient treatment (eg , constrictive pericarditis, tubercular meningitis) [ ]g) Hospitalization mandated by public health authority (eg, patient continually noncompliant with directly observed therapy) [ ]VIII. High-risk pulmonary infection as indicated by 1 or more of the following(22)(23)(24)(25): [ ]a) Temperature less than 95 degrees F (35 degrees C) or greater than 103.1 degrees F (39.5 degrees C) [ ]b) Hemodynamic instability [ ]c) Immunocompromised patient (eg, AIDS, post transplant, neutropenic)(26)(27) [ ]d) History of severe COPD(28) [ ]e) History of severely symptomatic congestive heart failure(29) [ ]f) Other high-risk comorbidity (eg, poorly controlled diabetes, cirrhosis, chronic renal insufficiency) [ ]g) Hypoxemia [ ]h) severe stridor (30) [ ]i) Outpatient, observation, or recovery facility therapy has failed, is not appropriate, or is not feasible. [ ]IX. Complications of tracheostomy that remains after emergency or observation level care(31)(32)(33)(34) [ ]X. Respiratory complications of organ transplant (eg, rejection, respiratory failure, respiratory infection)(27) [ ]XI. Severe pulmonary arterial hypertension or pulmonary vascular disease requiring inpatient care indicated by 1 or more of the following(35)(36)(37)(38): [ ]a) Initiation or change of vasodilators (IV, subcutaneous, or inhaled) or other vasoactive medications needed [ ]b) IV anticoagulation needed (eg, immediate anticoagulation necessary, alternatives not appropriate) [ ]c) Arterial or pulmonary artery catheter monitoring needed due to infusion or other treatment [ ]XII. Cystic fibrosis requiring inpatient care as indicated by 1 or more of the following(39)(40): [ ]a) Severe exacerbation that does not respond to intensified home therapy(41) [ ]b) Severe exacerbation with patient unable to perform prescribed treatments at home [ ]c) Pneumonia [ ]d) Pneumothorax(42) [ ]e) Atelectasis [ ]f) Hemoptysis(43) [ ]XIII. Bronchiectasis requiring inpatient care as indicated by 1 or more of the following(44)(45): [ ]a) Respiratory distress [ ]b) Severe exacerbation and outpatient or observation care therapy has failed, is not appropriate, or is not feasible. [ ]XIV. Sarcoidosis requiring inpatient care as indicated by 1 or more of the following(46)(47)(48): [ ]a) Respiratory distress [ ]b) Cardiac involvement with arrhythmia(49) [ ]c) Outpatient or observation care therapy has failed, is not appropriate, or is not feasible. [ ]XV. Intestitial lung disease requiring inpatient care as indicated by 1 or more of the following(50)(51): [ ]a) Respiratory distress [ ]b) Severe exacerbation and outpatient or observation care therapy has failed, is not appropriate, or is not feasible [ ]XVI. Allergic pneumonitis requiring inpatient care as indicated by 1 or more of the following(52): [ ]a) Respiratory distress [ ]b) Acute eosinophilic pneumonia [ ]c) [place] with cardiac involvement [ ]d) Outpatient or observation care therapy has failed, is not appropriate, or is not feasible [ ]XVIl. Severe right heart failure requiring inpatient care as indicated by 1 or more of the following(35)(53)(54): [ ]a) Respiratory distress [ ]b) Debilitating anasarca that remains after emergency or observation level care (eg, tissue [ ]c) breakdown with severe infection, inability to void due to edema) [C](41)(42)(43)(44) [ ]d) Hemodynamic instability [ ]e) Syncope [ ]f) Angina that requires inpatient care (eg, not treatable in emergency or observation level of care) [ ]g) Increasing organ failure (eg, liver congestion with significant and worsening or new elevation of transaminases) [ ]XVIll. Injury requiring inpatient care (medical) as indicated by 1 or more of the following(59)(60)(61) [ ]a) Significant inhalation injury (eg, smoke inhalation, other toxic inhalation)(62)(63)(64) [ ]b) Airway obstruction that remains or is unstable after emergency or observation level care(65)(66) [ ]c) Severe pain requiring acute inpatient management [ ]d) Lung contusion(67) [ ]e) Flail chest(68) [ ]f) Bronchial tree injury [ ]g) Air or fat emboli [ ]h) Other injury not treatable in emergency or observation level care (eg, hemothorax)(55) [ ]XlX. Pulmonary hemorrhage or significant hemoptysis(12)(43)(69) [ ]XXl. Complications of transplanted lung indicated by 1 or more of the following(70)(71) [ ]a) Acute graft rejection requiring inpatient management (eg, intravenous immunosuppression)(72)(73)(74) [ ]b) Failure of transplant lung as indicated by 1 or more of the following(75)(76): [ ]i) Anastomotic leak [ ]ii) Airway ischemia or necrosis [ ]iii) Airway fistula [ ]iv) Obstructing granulation tissue requiring intervention [ ]v) Bronchial stenosis or stricture requiring intervention [ ]vi) Tracheobronchomalacia requiring intervention [ ]vii) Severe airflow or ventilation abnormalities [ ]viii) Severe respiratory findings [ ]c) Infection requiring inpatient management (eg, Hemodynamic instability, need for intravenous antimicrobial treatment)(77)(78)(79)(80)(81)(82 [ ]d) Other complication of transplanted lung (eg, obliterative bronchiolitis, plastic bronchitis, thrombotic microangiopathy, constrictive pericarditis) requiring inpatient management(83)(84)(85)(86)(87) [ ]XXll. Inpatient palliative care needed.[D](88)(89)(90)(91) [ ]XXlll. Pulmonary Disease condition, symptom, or finding for which emergency and observation care have failed or are not considered appropriate. The original [facility] content created by [employer] has been revised. The portions of the content which have been revised are identified through the use of italic text or in bold, and [facility] has neither reviewed nor approved the modified material. All other unmodified content is copyright [facility]. Please see references footnoted in the original [facility] edition 2017 Admission Criteria Met: Yes
[2017-04-02] MEDS: COZAAR PO SCH (16:41)
[2017-04-02] MEDS: NORVASC PO SCH (16:42)
[2017-04-02] MEDS: ZYLOPRIM PO SCH (16:43)
[2017-04-02] MEDS: PLAQUENIL PO SCH (16:43)
[2017-04-02] MEDS: FOLVITE PO SCH (16:44)
[2017-04-02] MEDS: HEPARIN SUB-Q SCH ×2 (16:44→21:03)
[2017-04-02] MEDS ORDERED: ATIVAN ONE (17:33)
[2017-04-02] MEDS ORDERED: ATIVAN IV ONE (17:42)
[2017-04-02] MEDS ORDERED: ATIVAN PO SCH (22:00)
[2017-04-02] MEDS ORDERED: KEPPRA PO SCH (22:00)
[2017-04-02] MEDS: ATIVAN IV PRN (22:39)
[2017-04-03] MEDS ORDERED: APRESOLINE IV PRN (03:59)
[2017-04-03] MEDS: APRESOLINE IV PRN ×2 (05:13→08:58)
[2017-04-03] MEDS ORDERED: PROVENTIL IH ONE (06:05)
[2017-04-03] MEDS ORDERED: VERSED IV ONE (06:30)
[2017-04-03] MEDS ORDERED: DIPRIVAN 10 MG/ML 1,000 MG/100 ML BOTTLE IV ONE (06:34)
[2017-04-03] MEDS ORDERED: ZOSYN/NS 4.5GM/100ML 4.5 GM/100 ML VIAL IV ONE (06:42)
[2017-04-03 06:47] LABS: ISTAT Base Excess 0; ISTAT HCO3 21.8; ISTAT PCO2 21.8 (35-45); ISTAT PH 7.607 (7.35-7.45); ISTAT PO2 106 (80-105); ISTAT SO2 99; ISTAT TCO2 22
--- NOTE | 2017-04-03 06:54 | XRay Report ---
FINAL REPORT EXAM: XR CHEST 1V AP HISTORY: after intubation TECHNIQUE: Chest, portable supine PRIORS: None. FINDINGS: The endotracheal tube tip extends to the right mainstem bronchus. Suggest pulling back at least 2.5 cm. There is mild cardiomegaly. There is no congestion, infiltrate or pleural effusion seen. The lungs are clear. There is no pneumothorax. IMPRESSION: Endotracheal tube tip extends into the right mainstem bronchus. Suggest pulling back at least 2.5 cm.
[2017-04-03] MEDS ORDERED: FOSAMAX PO SCH (07:00)
--- NOTE | 2017-04-03 07:34 | Progress Note ---
<ARCHANA SALDAÑA - Last Filed: 04/03/17 14:54> Assessment and Plan Assessment and plan: Acute respiratory failure Patient intubated/sedated ABG when necessary managed by Pulmonology Sepsis Patient Respiratory distress/ tachycardia with a heart rate of >130 Elevated WBC, creatinine and lactic acidosis Blood cultures collected prior to antibiotic We initiated empiric antibiotic vancomycin/zosyn/flagyl Pharmacy Vancomycin IV fluid bolus given and patient on continuous LR 100cc/hr. C-diff DNA Amplification Assay ordered Seizure EEG,MRI, and CT of the head ordered Started on IV Keppra Started on Ativan when necessary Neurology consulted Encephalopathy Treat the underlying cause Chest Pain 12 lead EKG obtained we also get another EKG doctor for any changes have taken since the first obtained follow cardiac enzymes troponin Stress test ordered, but patient critically ill and unable to do the procedure Doppler VL ordered Normal VQ scan Post-extubation airway compromise Patient had Angioedema secondary to lisinopril and was intubated for 7 days but patient still has throat discomfort Patient currently on 2 LNC with oxygen saturation >95%, No acute respiratory distress noted. Neck x-ray normal Chest X-ray shows unremarkable AP chest Frequent airway assessment Swallow evaluation ordered Acute renal failure Creatinine improved than yesterday Elevated BUN/ creatinine Gently IV fluid hydration Nephrology consult Hypertension We will resume antihypertensive home medicine IV hydralazine when necessary ordered Lupus We will resume home meds DVT prophylaxis Heparin Full code Total Time Spent with Patient (Minutes): 33 History Interval history: Patient currently intubated and sedated.Patient unresponsive to verbal stimuli or sternum rubs at present time. Hospitalist Physical - Constitutional Vitals: Temp Pulse Resp BP Pulse Ox 98.2 F 101 H 18 192/98 100 04/03/17 04:52 04/03/17 04:52 04/03/17 04:52 04/03/17 04:52 04/03/17 04:52 General appearance: Present: severe distress, other (intubated and sedated) - EENT Eyes: Present: irregular pupil - Respiratory Respiratory: bilateral: diminished, rhonchi - Cardiovascular Heart rate: 130 Heart Sounds: Present: S1 & S2 ( centimeters) - Extremities Extremity abnormal: other (Decorticated) - Abdominal General gastrointestinal: soft, non-tender (he was here) - Integumentary Integumentary: Present: clear - Psychiatric Psychiatric: other (intubated sedated) - Neurologic Neurologic: other - Allied Health Allied health notes reviewed: nursing Results - Labs CBC & Chem 7: 04/03/17 07:50 04/03/17 07:50 Labs: Laboratory Last Values WBC 14.4 K/mm3 (4.5-11.0) H 04/02/17 04:30 RBC 4.87 M/mm3 (3.65-5.03) 04/02/17 04:30 Hgb 10.7 gm/dl (10.1-14.3) 04/02/17 04:30 Hct 33.5 % (30.3-42.9) 04/02/17 04:30 MCV 69 fl (79-97) L 04/02/17 04:30 MCH 22 pg (28-32) L 04/02/17 04:30 MCHC 32 % (30-34) 04/02/17 04:30 RDW 16.2 % (13.2-15.2) H 04/02/17 04:30 Plt Count 173 K/mm3 (140-440) 04/02/17 04:30 Lymph % (Auto) 20.1 % (13.4-35.0) 04/02/17 04:30 Mckenzie % (Auto) 9.5 % (0.0-7.3) H 04/02/17 04:30 Eos % (Auto) 0.6 % (0.0-4.3) 04/02/17 04:30 Baso % (Auto) 0.3 % (0.0-1.8) 04/02/17 04:30 Lymph # 2.9 K/mm3 (1.2-5.4) 04/02/17 04:30 Mckenzie # 1.4 K/mm3 (0.0-0.8) H 04/02/17 04:30 Eos # 0.1 K/mm3 (0.0-0.4) 04/02/17 04:30 Baso # 0.0 K/mm3 (0.0-0.1) 04/02/17 04:30 Seg Neutrophils % 69.5 % (40.0-70.0) 04/02/17 04:30 Seg Neutrophils # 10.1 K/mm3 (1.8-7.7) H 04/02/17 04:30 POC ABG pH 7.607 (7.35-7.45) H 04/03/17 06:18 POC ABG pCO2 21.8 (35-45) L 04/03/17 06:18 POC ABG pO2 106 (80-105) H 04/03/17 06:18 POC ABG HCO3 21.8 04/03/17 06:18 POC ABG Total CO2 22 04/03/17 06:18 POC ABG O2 Sat 99 04/03/17 06:18 POC ABG Base Excess 0 04/03/17 06:18 FiO2 28 % 04/03/17 06:18 Sodium 142 mmol/L (137-145) 04/02/17 04:30 Potassium 3.9 mmol/L (3.6-5.0) 04/02/17 04:30 Chloride 101.4 mmol/L (98-107) 04/02/17 04:30 Carbon Dioxide 26 mmol/L (22-30) 04/02/17 04:30 Anion Gap 19 mmol/L 04/02/17 04:30 BUN 32 mg/dL (7-17) H 04/02/17 04:30 Creatinine 1.4 mg/dL (0.7-1.2) H 04/02/17 04:30 Estimated GFR 49 ml/min 04/02/17 04:30 BUN/Creatinine Ratio 22.85 % 04/02/17 04:30 Glucose 93 mg/dL (65-100) 04/02/17 04:30 Calcium 8.5 mg/dL (8.4-10.2) 04/02/17 04:30 Troponin T < 0.010 ng/mL (0.00-0.029) 04/02/17 04:30 <LAUREN PRINGLE E - Last Filed: 04/03/17 16:58> Assessment and Plan Assessment and plan: Patient seen and examined by me she remains intubated unresponsive despite being off of sedation. 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 Neurologist concerned about possible brain due to no evidence of brainstem reflexes. Repeat CT scan pending. We'll continue supportive care with pressors considering hypotensive episode possible aspiration pneumonitis. Continue antibiotics as already prescribed monitor cultures. Await EEG. Family at bedside at this time. I saw and evaluated the patient. I agree with the findings and the plan of care as documented in the Nurse Practitioner's~note, with the following corrections and additions. The high probability of a clinically significant, sudden or life threatening deterioration of the [Neuro,pulmonary] system(s) required my full and direct attention, intervention and personal management. The aggregate critical care time was [35] minutes. This time is in addition to time spent performing reported procedures but includes the following: [X] Data Review and interpretation [X] Patient assessment and monitoring of vital signs [X] Documentation [X] Medication orders and management Total Time Spent with Patient (Minutes): 35 Hospitalist Physical - Constitutional Vitals: Temp Pulse Resp BP Pulse Ox 97.7 F 69 14 120/83 100 04/03/17 12:00 04/03/17 15:44 04/03/17 15:11 04/03/17 15:44 04/03/17 15:44 - Psychiatric Psychiatric: other Results - Labs CBC & Chem 7: 04/03/17 07:50 04/03/17 07:50 Labs: Laboratory Last Values WBC 43.8 K/mm3 (4.5-11.0) H* 04/03/17 07:50 RBC 4.86 M/mm3 (3.65-5.03) 04/03/17 07:50 Hgb 10.6 gm/dl (10.1-14.3) 04/03/17 07:50 Hct 34.5 % (30.3-42.9) 04/03/17 07:50 MCV 71 fl (79-97) L 04/03/17 07:50 MCH 22 pg (28-32) L 04/03/17 07:50 MCHC 31 % (30-34) 04/03/17 07:50 RDW 16.3 % (13.2-15.2) H 04/03/17 07:50 Plt Count 225 K/mm3 (140-440) 04/03/17 07:50 Lymph % (Auto) 20.1 % (13.4-35.0) 04/02/17 04:30 Mckenzie % (Auto) 9.5 % (0.0-7.3) H 04/02/17 04:30 Eos % (Auto) 0.6 % (0.0-4.3) 04/02/17 04:30 Baso % (Auto) 0.3 % (0.0-1.8) 04/02/17 04:30 Lymph # 2.9 K/mm3 (1.2-5.4) 04/02/17 04:30 Mckenzie # 1.4 K/mm3 (0.0-0.8) H 04/02/17 04:30 Eos # 0.1 K/mm3 (0.0-0.4) 04/02/17 04:30 Baso # 0.0 K/mm3 (0.0-0.1) 04/02/17 04:30 Add Manual Diff Complete 04/03/17 07:50 Total Counted 200 04/03/17 07:50 Seg Neutrophils % Talent Acquisition Consultant 04/03/17 07:50 Seg Neuts % (Manual) 88.5 % (40.0-70.0) H 04/03/17 07:50 Band Neutrophils % 3.5 % 04/03/17 07:50 Lymphocytes % (Manual) 2.5 % (13.4-35.0) L 04/03/17 07:50 Reactive Lymphs % (Man) 0 % 04/03/17 07:50 Monocytes % (Manual) 3.0 % (0.0-7.3) 04/03/17 07:50 Eosinophils % (Manual) 0 % (0.0-4.3) 04/03/17 07:50 Basophils % (Manual) 0 % (0.0-1.8) 04/03/17 07:50 Metamyelocytes % 2.0 % 04/03/17 07:50 Myelocytes % 0.5 % 04/03/17 07:50 Promyelocytes % 0 % 04/03/17 07:50 Blast Cells % 0 % 04/03/17 07:50 Nucleated RBC % Not Reportable 04/03/17 07:50 Seg Neutrophils # 10.1 K/mm3 (1.8-7.7) H 04/02/17 04:30 Seg Neutrophils # Man 38.8 K/mm3 (1.8-7.7) H 04/03/17 07:50 Band Neutrophils # 1.5 K/mm3 04/03/17 07:50 Lymphocytes # (Manual) 1.1 K/mm3 (1.2-5.4) L 04/03/17 07:50 Abs React Lymphs (Man) 0.0 K/mm3 04/03/17 07:50 Monocytes # (Manual) 1.3 K/mm3 (0.0-0.8) H 04/03/17 07:50 Eosinophils # (Manual) 0.0 K/mm3 (0.0-0.4) 04/03/17 07:50 Basophils # (Manual) 0.0 K/mm3 (0.0-0.1) 04/03/17 07:50 Metamyelocytes # 0.9 K/mm3 04/03/17 07:50 Myelocytes # 0.2 K/mm3 04/03/17 07:50 Promyelocytes # 0.0 K/mm3 04/03/17 07:50 Blast Cells # 0.0 K/mm3 04/03/17 07:50 Pathologist Review 04/03/17 07:50 WBC Morphology Not Reportable 04/03/17 07:50 Hypersegmented Neuts Not Reportable 04/03/17 07:50 Hyposegmented Neuts Not Reportable 04/03/17 07:50 Hypogranular Neuts Not Reportable 04/03/17 07:50 Smudge Cells Not Reportable 04/03/17 07:50 Toxic Granulation Not Reportable 04/03/17 07:50 Toxic Vacuolation Not Reportable 04/03/17 07:50 Dohle Bodies Not Reportable 04/03/17 07:50 Pelger-Huet Anomaly Not Reportable 04/03/17 07:50 Arcadio Rods Not Reportable 04/03/17 07:50 Platelet Estimate Consistent w auto 04/03/17 07:50 Clumped Platelets Not Reportable 04/03/17 07:50 Plt Clumps, EDTA Not Reportable 04/03/17 07:50 Large Platelets Not Reportable 04/03/17 07:50 Giant Platelets Not Reportable 04/03/17 07:50 Platelet Satelliting Not Reportable 04/03/17 07:50 Plt Morphology Comment Not Reportable 04/03/17 07:50 RBC Morphology Not Reportable 04/03/17 07:50 Dimorphic RBCs Not Reportable 04/03/17 07:50 Polychromasia Rare 04/03/17 07:50 Hypochromasia 2+ 04/03/17 07:50 Poikilocytosis Not Reportable 04/03/17 07:50 Anisocytosis 1+ 04/03/17 07:50 Microcytosis 1+ 04/03/17 07:50 Macrocytosis Not Reportable 04/03/17 07:50 Spherocytes Not Reportable 04/03/17 07:50 Pappenheimer Bodies Not Reportable 04/03/17 07:50 Sickle Cells Not Reportable 04/03/17 07:50 Target Cells 1+ 04/03/17 07:50 Tear Drop Cells Rare 04/03/17 07:50 Ovalocytes Rare 04/03/17 07:50 Helmet Cells Rare 04/03/17 07:50 Chavira-Chetek Bodies Not Reportable 04/03/17 07:50 Owanka Rings Not Reportable 04/03/17 07:50 Maryana Cells Not Reportable 04/03/17 07:50 Bite Cells Not Reportable 04/03/17 07:50 Crenated Cell Not Reportable 04/03/17 07:50 Elliptocytes Not Reportable 04/03/17 07:50 Acanthocytes (Spur) Not Reportable 04/03/17 07:50 Rouleaux Not Reportable 04/03/17 07:50 Hemoglobin C Crystals Not Reportable 04/03/17 07:50 Schistocytes Rare 04/03/17 07:50 Malaria parasites Not Reportable 04/03/17 07:50 Russ Bodies Not Reportable 04/03/17 07:50 Hem Pathologist Commnt Sent to pathology 04/03/17 07:50 POC ABG pH 7.551 (7.35-7.45) H 04/03/17 08:04 POC ABG pCO2 31.0 (35-45) L 04/03/17 08:04 POC ABG pO2 493 (80-105) H 04/03/17 08:04 POC ABG HCO3 27.2 04/03/17 08:04 POC ABG Total CO2 28 04/03/17 08:04 POC ABG O2 Sat 100 04/03/17 08:04 POC ABG Base Excess 5 04/03/17 08:04 FiO2 100 % 04/03/17 08:04 Sodium 142 mmol/L (137-145) 04/03/17 07:50 Potassium 4.5 mmol/L (3.6-5.0) 04/03/17 07:50 Chloride 101.1 mmol/L (98-107) 04/03/17 07:50 Carbon Dioxide 24 mmol/L (22-30) 04/03/17 07:50 Anion Gap 21 mmol/L 04/03/17 07:50 BUN 27 mg/dL (7-17) H 04/03/17 07:50 Creatinine 1.2 mg/dL (0.7-1.2) 04/03/17 07:50 Estimated GFR 59 ml/min 04/03/17 07:50 BUN/Creatinine Ratio 22.50 % 04/03/17 07:50 Glucose 190 mg/dL (65-100) H 04/03/17 07:50 POC Glucose 190 (70-105) H 04/03/17 06:00 Lactic Acid 2.00 mmol/L (0.7-2.0) 04/03/17 11:05 Calcium 8.4 mg/dL (8.4-10.2) 04/03/17 07:50 Total Bilirubin 0.90 mg/dL (0.1-1.2) 04/03/17 07:50 AST 26 units/L (5-40) 04/03/17 07:50 ALT 85 units/L (7-56) H 04/03/17 07:50 Alkaline Phosphatase 84 units/L (35-129) 04/03/17 07:50 Troponin T 0.028 ng/mL (0.00-0.029) 04/03/17 07:50 Total Protein 7.8 g/dL (6.3-8.2) 04/03/17 07:50 Albumin 3.2 g/dL (3.9-5) L 04/03/17 07:50 Albumin/Globulin Ratio 0.7 % 04/03/17 07:50
[2017-04-03] MEDS ORDERED: APRESOLINE IV ONE (07:52)
[2017-04-03] MEDS: ZOSYN/NS 4.5GM/100ML 4.5 GM/100 ML VIAL IV SCH ×3 (07:55→22:47)
[2017-04-03] MEDS ORDERED: VERSED IV NR (08:00)
[2017-04-03] MEDS ORDERED: DIPRIVAN 10 MG/ML 1,000 MG/100 ML BOTTLE IV SCH (08:00)
[2017-04-03 08:10] LABS: Hematocrit 34.5 % (30.3-42.9); Hemoglobin 10.6 gm/dl (10.1-14.3); Mean Corpuscular HGB Conc 31 % (30-34); Mean Corpuscular Volume 71 fl (79-97); Platelet Count 225 K/mm3 (140-440); Red Blood Count 4.86 M/mm3 (3.65-5.03); Red Cell Distribution Width 16.3 % (13.2-15.2)
--- NOTE | 2017-04-03 08:13 | Consultation ---
History of Present Illness Consult date: 04/03/17 Requesting physician: OLGA PACK Reason for consult: dyspnea History of present illness: Patient is a 46 years old female with past medical history of hypertension and lupus who presents to the emergency department for complaining chest pain and feeling post extubated throat discomfort. The character pain began in the midsternal area and radiated up to her neck.She states that the pain began two days ago and consisted of a dull pain. The onset of pain came while the patient was walking in her home. 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 Her discomfort was accompanied by shortness of breath, sweating, nausea, and vomiting. No alleviating factors . She does not attempted to relieve her pain, other than rest. She describes no other associated symptoms during these episodes of pain, including dizziness, or palpitations. She becomes short of breath during these Relevant positive and negative ROS for this complaint episodes but describes no other exertional dyspnea, orthopnea. Patient also complains post-intubation throat discomfort. patient was recently discharged from here 3 days ago on March 30. Patient was admitted for angioedema secondary to lisinopril and had intubated for about 7 days. ( this is history was as obtained from the medial records) She was given racemic epinephrine , steroids and bronchodilators, supplemental oxygen. She has been admitted to the ICU for monitoring for respiratory compromise and decompensation She required endotracheal intubation this morning secondary to respiratory distress Current ventilator settings and ABG 7.55/31/493/27.2 / AC-VC 16/450/5/100% Currently on propofol for sedation. She was seen and examined. Vitals, labs, medications, chart reviewed. Discussed during interdisciplinary ICU rounds Past History Past Medical History: hypertension, other (lupus, angioedema related to lisinopril) Past Surgical History: No surgical history Social history: lives with family Family history: hypertension Medications and Allergies Allergies Allergy/AdvReac Type Severity Reaction Status Date / Time lisinopril Allergy Angioedema Verified 04/02/17 08:58 Home Medications Medication Instructions Recorded Confirmed Last Taken Type Furosemide [Lasix] 40 mg PO QDAY 11/10/13 04/02/17 04/02/17 History Hydroxychloroquine [Plaquenil] 200 mg PO QDAY 11/10/13 04/02/17 04/02/17 History Losartan [Cozaar] 100 mg PO QDAY #30 tablet 03/30/17 04/02/17 04/02/17 Rx Alendronate Sodium [Fosamax] 70 mg PO QWEEK 04/02/17 04/02/17 04/02/17 History Metoprolol Xl [Metoprolol 50 mg PO QDAY 04/02/17 04/02/17 04/02/17 History SUCCINATE ER TAB] amLODIPine [Norvasc] 10 mg PO DAILY 04/02/17 04/02/17 04/02/17 History predniSONE [Deltasone] 5 mg PO QDAY 04/02/17 04/02/17 04/02/17 History sulfaSALAzine [Azulfidine] 500 mg PO DAILY 04/02/17 04/02/17 04/02/17 History Active Meds: Active Medications Acetaminophen (Tylenol) 650 mg PO Q4H PRN PRN Reason: Pain MILD(1-3)/Fever >100.5/[facility] Alendronate Sodium (Fosamax) 70 mg PO Tu@0700 [facility] Allopurinol (Zyloprim) 100 mg PO QDAY [facility] Last Admin: 04/02/17 16:43 Dose: 100 mg Amlodipine Besylate (Norvasc) 10 mg PO DAILY [facility] Last Admin: 04/02/17 16:42 Dose: 10 mg Bisacodyl (Dulcolax) 10 mg MT QDAY PRN PRN Reason: Constipation unrelieved by MOM Ergocalciferol (Vitamin D2) 50,000 unit PO Mo [facility] Last Admin: 04/02/17 14:04 Dose: 50,000 unit Folic Acid (Folvite) 1 mg PO QDAY [facility] Last Admin: 04/02/17 16:44 Dose: 1 mg Heparin Sodium (Porcine) (Heparin) 5,000 unit SUB-Q Q12HR [facility] Last Admin: 04/02/17 21:03 Dose: 5,000 unit Hydralazine HCl (Apresoline) 10 mg IV Q4HR PRN PRN Reason: Blood Pressure Last Admin: 04/03/17 05:13 Dose: 10 mg Hydralazine HCl (Apresoline) 10 mg IV ONCE ONE Stop: 04/03/17 07:53 Hydroxychloroquine Sulfate (Plaquenil) 200 mg PO QDAY [facility] Last Admin: 04/02/17 16:43 Dose: 200 mg Levetiracetam 500 mg/ Dextrose 105 mls @ 400 mls/hr IV Q12HR [facility] Piperacillin Sod/Tazobactam Sod (Zosyn/Ns 4.5gm/100ml) 4.5 gm in 100 mls @ 200 mls/hr IV Q8HR [facility] Propofol (Diprivan 10 Mg/Ml) 1,000 mg in 100 mls @ 2.313 mls/hr IV TITR [facility]; 5 MCG/KG/MIN PRN Reason: Protocol Lorazepam (Ativan) 1 mg IV Q1H PRN PRN Reason: Agitation Last Admin: 04/02/17 22:39 Dose: 1 mg Losartan Potassium (Cozaar) 100 mg PO QDAY [facility] Last Admin: 04/02/17 16:41 Dose: 100 mg Magnesium Hydroxide (Milk Of Magnesia) 30 ml PO Q4H PRN PRN Reason: Constipation Methotrexate (Methotrexate(Dose Weekly Only)) 10 mg PO Tu@1000 [facility] Methylprednisolone Sodium Succinate (Solu-Medrol) 40 mg IV Q8HR [facility] Last Admin: 04/03/17 05:13 Dose: 40 mg Metoprolol Tartrate (Lopressor) 25 mg PO BID [facility] Ondansetron HCl (Zofran) 4 mg IV Q4H PRN PRN Reason: Vomiting Pseudoephedrine/Acetam/Chlorphenir (Robitussin Ac) 5 ml PO Q4H PRN PRN Reason: Cough Sulfasalazine (Azulfidine) 500 mg PO DAILY [facility] Tizanidine HCl (Zanaflex) 4 mg PO Q8H PRN PRN Reason: Muscle Spasm Last Admin: 04/02/17 16:43 Dose: 4 mg Review of Systems ROS unobtainable: due to endotracheal tube Physical Examination Vital signs: Vital Signs Temp Pulse Resp BP Pulse Ox 98.9 F 103 H 24 145/96 100 04/02/17 04:12 04/02/17 04:12 04/02/17 04:12 04/02/17 04:12 04/02/17 04:12 General appearance: no acute distress, other (sedated, intubated. ETT to vent, small bowel feeding tube in nares) Eyes: non-icteric ENT: oropharynx moist Neck: supple, no JVD Effort: normal Ascultation: Bilateral: clear, diminished breath sounds Cardiovascular: regular rate and rhythm Gastrointestinal: normoactive bowel sounds, soft, non-distended Integumentary: normal Extremities: no cyanosis, no edema, pink and warm, pulses normal Musculoskeletal: no deformities unable to assess (sedated on propofol) Results - Laboratory Findings CBC and BMP: 04/03/17 07:50 04/03/17 07:50 ABG POC ABG pH 7.607 (7.35-7.45) H 04/03/17 06:18 POC ABG pCO2 21.8 (35-45) L 04/03/17 06:18 POC ABG pO2 106 (80-105) H 04/03/17 06:18 POC ABG HCO3 21.8 04/03/17 06:18 POC ABG Total CO2 22 04/03/17 06:18 POC ABG O2 Sat 99 04/03/17 06:18 Abnormal lab findings: Abnormal Labs 04/03/17 06:18 POC ABG pH 7.607 H POC ABG pCO2 21.8 L POC ABG pO2 106 H - Diagnostic Findings Chest x-ray: image reviewed Assessment and Plan - Patient Problems (1) Acute respiratory failure with hypoxemia Current Visit: Yes Status: Acute Plan to address problem: Continue with mechanical ventilatory support VAP bundle addressed Nutrition consult for enteral feeding once placement of feeding tube is confirmed Aspiration precautions HOB>40% Monitor ABGs Agitation and anxiety management Daily SATs and SBTs- initiate in the morning Discussed with hospitalist service (2) Sepsis Current Visit: Yes Status: Acute Qualifiers: Sepsis type: S Plan to address problem: High grade fevers this morning- blood, urine cultures sent Start Vancomycin, zosyn and add metronidazole in view of severe leukocytosis- with recent admission this could be Clostridi um difficile Volume resuscitation 3 and 6 hour sepsis bundle Monitor hemodynamics closely as the patient is at isk of hemodynamic compromise (3) Lactic acid acidosis Current Visit: Yes Status: Acute Plan to address problem: Secondary to sepsis, follow sepsis protocol/bundles (4) Angioedema Current Visit: No Status: Acute Qualifiers: Encounter type: initial encounter Qualified Code(s): T78.3XXA - Angioneurotic edema, initial encounter Plan to address problem: History of with sudden decompensation this morning Steroids, H2 antagonists, antihistamines Monitor closely, check cuff leak when ready for extubation- at risk for post- extubation stridor Critical care time in (mins) excluding proc time.: 62 Critical care attestation.: If time is entered above; I have spent that time in minutes in the direct care of this critically ill patient, excluding procedure time.
[2017-04-03 08:26] LABS: ISTAT Base Excess 5; ISTAT HCO3 27.2; ISTAT PH 7.551 (7.35-7.45); ISTAT PO2 493 (80-105); ISTAT SO2 100; ISTAT TCO2 28
[2017-04-03 08:28] LABS: Albumin 3.2 g/dL (3.9-5); Albumin/Globulin Ratio 0.7 %; BUN/Creatinine Ratio 22.5; Bilirubin,Total 0.9 mg/dL (0.1-1.2); Calcium 8.4 mg/dL (8.4-10.2); Chloride 101.1 mmol/L (98-107); Potassium 4.5 mmol/L (3.6-5.0); Total Protein 7.8 g/dL (6.3-8.2)
[2017-04-03 08:42] LABS: Mean Corpuscular Hemoglobin 22 pg (28-32); White Blood Count 43.8 K/mm3 (4.5-11.0)
[2017-04-03] MEDS: ATIVAN IV PRN (08:57)
[2017-04-03] MEDS ORDERED: LACTATED RINGERS 1,000 ML IV ONE ×2 (09:00→11:00)
--- NOTE | 2017-04-03 09:25 | Vascular Lab Report ---
LOWER EXTREMITY VENOUS DUPLEX: REASON FOR EXAM: Shortness of breath. COMMENTS ON THE RIGHT: All veins visualized are freely compressible without evidence of internal echogenicity. Flow is spontaneous and phasic throughout. COMMENTS ON THE LEFT: All veins visualized are freely compressible without evidence of internal echogenicity. Flow is spontaneous and phasic throughout. IMPRESSION: No evidence of acute or chronic deep venous thrombosis in either lower extremity.
[2017-04-03] MEDS ORDERED: SODIUM BICARBONATE FEEDTUBE PRN (09:33)
[2017-04-03] MEDS ORDERED: SIMPLE SYRUP FEEDTUBE PRN ×2 (09:33)
[2017-04-03] MEDS ORDERED: PANCREAZE DR 10,500 UNIT FEEDTUBE PRN (09:33)
[2017-04-03 09:53] LABS: Basophils % (Manual) 0 % (0.0-1.8); Blastocytes % (Manual) 0 %; Eosinophils % (Manual) 0 % (0.0-4.3)
[2017-04-03 09:54] LABS: Hypochromasia 2+; Target Cells 1+
[2017-04-03 09:55] LABS: Polychromasia Rare
[2017-04-03] MEDS: HEPARIN SUB-Q SCH (09:55)
[2017-04-03] MEDS: PEPCID IV SCH ×2 (09:55→22:47)
[2017-04-03 09:56] LABS: Helmet Cells Rare; Ovalocytes Rare; Platelet Estimate Consistent w Auto; Tear Drop Cells Rare
--- NOTE | 2017-04-03 09:59 | XRay Report ---
Single view chest: Compared to 04/03/17. History: PICC line placement. Findings: Borderline cardiomegaly. Stable support system. Tip of right PICC line in upper superior vena cava. No consolidation, pneumothorax or pleural effusion. Impression: Tip of right PICC line at the vena cava.
--- NOTE | 2017-04-03 09:59 | XRay Report ---
Single view abdomen: History: Dobbhoff placement. Findings: Tip of Dobbhoff feeding tube is noted in distal stomach. Impression: Tip of Dobbhoff feeding tube is noted in distal stomach.
[2017-04-03 10:00] LABS: Anisocytosis 1+; Diff Status Complete; Microcytosis 1+; Schistocytes Rare
[2017-04-03] MEDS ORDERED: SULFASALAZINE 500 MG PO SCH (10:00)
[2017-04-03] MEDS: AZULFIDINE PO SCH (10:00)
[2017-04-03] MEDS ORDERED: METHOTREXATE(DOSE WEEKLY ONLY) PO SCH (10:00)
[2017-04-03] MEDS: LACTATED RINGERS 1,000 ML IV SCH (10:03)
[2017-04-03] MEDS: COZAAR PO SCH (10:17)
[2017-04-03] MEDS: ZYLOPRIM PO SCH (10:43)
[2017-04-03] MEDS: LOPRESSOR PO SCH (10:43)
[2017-04-03] MEDS: NORVASC PO SCH (10:43)
[2017-04-03] MEDS: FOLVITE PO SCH (10:43)
[2017-04-03] MEDS: PLAQUENIL PO SCH (10:43)
[2017-04-03] MEDS: FLAGYL PO SCH ×3 (10:44→22:46)
[2017-04-03] MEDS: KEPPRA 500 MG in D5W 100 ML IV SCH ×2 (10:45→22:46)
[2017-04-03] MEDS ORDERED: VANCOMYCIN PHARMACY TO DOSE IV SCH (11:00)
[2017-04-03] MEDS ORDERED: VANCOMYCIN 1,500 MG in NACL 0.9% 500 ML 500 ML IV ONE (11:00)
--- NOTE | 2017-04-03 12:28 | Consultation ---
History of Present Illness Consult date: 04/03/17 Requesting physician: PUSHPA GODDARD Reason for Consult: seizure Chief complaint: AMS limits direct hx History of present illness: 46 YO F Hx Lupus p/w SOB and chest pain on 04/02. While in ED at approx 6 PM she reportedly had GTC x 2 but improved to following some commands although agitated pulling off NRB. She was admitted to floor but then noted to have MET call 6:40 AM for fixed blown pupils and unresponsiveness but no clear further documentation beyond initial VS and Tele normal. She was Tsf to ICU and intubated. Since then she was on Propofol but off for 30 misn prior to my exam. Sx of AMS constant. There are no clear aggravating, relieving or temporal factors. Severity limits consciousness. Past History Past Medical History: hypertension, other (lupus, angioedema related to lisinopril) Past Surgical History: No surgical history Social history: lives with family Family history: hypertension Medications and Allergies Allergies Allergy/AdvReac Type Severity Reaction Status Date / Time lisinopril Allergy Angioedema Verified 04/02/17 08:58 Home Medications Medication Instructions Recorded Confirmed Last Taken Type Furosemide [Lasix] 40 mg PO QDAY 11/10/13 04/02/17 04/02/17 History Hydroxychloroquine [Plaquenil] 200 mg PO QDAY 11/10/13 04/02/17 04/02/17 History Losartan [Cozaar] 100 mg PO QDAY #30 tablet 03/30/17 04/02/17 04/02/17 Rx Alendronate Sodium [Fosamax] 70 mg PO QWEEK 04/02/17 04/02/17 04/02/17 History Metoprolol Xl [Metoprolol 50 mg PO QDAY 04/02/17 04/02/17 04/02/17 History SUCCINATE ER TAB] amLODIPine [Norvasc] 10 mg PO DAILY 04/02/17 04/02/17 04/02/17 History predniSONE [Deltasone] 5 mg PO QDAY 04/02/17 04/02/17 04/02/17 History sulfaSALAzine [Azulfidine] 500 mg PO DAILY 04/02/17 04/02/17 04/02/17 History Active Meds: Active Medications Acetaminophen (Tylenol) 650 mg PO Q4H PRN PRN Reason: Pain MILD(1-3)/Fever >100.5/[facility] Alendronate Sodium (Fosamax) 70 mg PO Tu@0700 [facility] Allopurinol (Zyloprim) 100 mg PO QDAY [facility] Last Admin: 04/03/17 10:43 Dose: 100 mg Amlodipine Besylate (Norvasc) 10 mg PO DAILY [facility] Last Admin: 04/03/17 10:43 Dose: 10 mg Lipase/Protease/Amylase (Pancreaze Dr 10,500 Unit) 1 each FEEDTUBE PRN PRN PRN Reason: For Clogged Feeding Tube Bisacodyl (Dulcolax) 10 mg NE QDAY PRN PRN Reason: Constipation unrelieved by MOM Ergocalciferol (Vitamin D2) 50,000 unit PO Mo [facility] Last Admin: 04/02/17 14:04 Dose: 50,000 unit Famotidine (Pepcid) 20 mg IV BID [facility] Last Admin: 04/03/17 09:55 Dose: 20 mg Folic Acid (Folvite) 1 mg PO QDAY [facility] Last Admin: 04/03/17 10:43 Dose: 1 mg Heparin Sodium (Porcine) (Heparin) 5,000 unit SUB-Q Q12HR [facility] Last Admin: 04/03/17 09:55 Dose: 5,000 unit Hydralazine HCl (Apresoline) 10 mg IV Q4HR PRN PRN Reason: Blood Pressure Last Admin: 04/03/17 08:58 Dose: 10 mg Hydroxychloroquine Sulfate (Plaquenil) 200 mg PO QDAY [facility] Last Admin: 04/03/17 10:43 Dose: 200 mg Levetiracetam 500 mg/ Dextrose 105 mls @ 400 mls/hr IV Q12HR [facility] Piperacillin Sod/Tazobactam Sod (Zosyn/Ns 4.5gm/100ml) 4.5 gm in 100 mls @ 200 mls/hr IV Q8HR [facility] Propofol (Diprivan 10 Mg/Ml) 1,000 mg in 100 mls @ 2.313 mls/hr IV TITR [facility]; 5 MCG/KG/MIN PRN Reason: Protocol Last Titration: 04/03/17 11:05 Dose: 20 mcg/kg/min, 9.252 mls/hr Lactated Ringer's (Lactated Ringers) 1,000 mls @ 75 mls/hr IV DIRECT [facility] Last Admin: 04/03/17 10:03 Dose: 75 mls/hr Vancomycin HCl 1,500 mg/ (Sodium Chloride) 530 mls @ 333.333 mls/hr IV ONCE ONE Stop: 04/03/17 12:35 Vancomycin HCl 1,250 mg/ (Sodium Chloride) 275 mls @ 166.667 mls/hr IV Q24HR [facility] Lorazepam (Ativan) 1 mg IV Q1H PRN PRN Reason: Agitation Last Admin: 04/03/17 08:57 Dose: 1 mg Losartan Potassium (Cozaar) 100 mg PO QDAY [facility] Last Admin: 04/02/17 16:41 Dose: 100 mg Magnesium Hydroxide (Milk Of Magnesia) 30 ml PO Q4H PRN PRN Reason: Constipation Methotrexate (Methotrexate(Dose Weekly Only)) 10 mg PO Tu@1000 [facility] Methylprednisolone Sodium Succinate (Solu-Medrol) 40 mg IV Q8HR [facility] Last Admin: 04/03/17 05:13 Dose: 40 mg Metoprolol Tartrate (Lopressor) 25 mg PO BID [facility] Last Admin: 04/03/17 10:43 Dose: 25 mg Metronidazole (Flagyl) 500 mg PO Q8HR [facility] Last Admin: 04/03/17 10:44 Dose: 500 mg Ondansetron HCl (Zofran) 4 mg IV Q4H PRN PRN Reason: Vomiting Pseudoephedrine/Acetam/Chlorphenir (Robitussin Ac) 5 ml PO Q4H PRN PRN Reason: Cough Simple Syrup (Simple Syrup) 15 ml FEEDTUBE PRN PRN PRN Reason: Hypoglycemia Simple Syrup (Simple Syrup) 30 ml FEEDTUBE PRN PRN PRN Reason: Hypoglycemia Sodium Bicarbonate (Sodium Bicarbonate) 325 mg FEEDTUBE PRN PRN PRN Reason: For Clogged Feeding Tube Sulfasalazine (Azulfidine) 500 mg PO DAILY [facility] Tizanidine HCl (Zanaflex) 4 mg PO Q8H PRN PRN Reason: Muscle Spasm Last Admin: 04/02/17 16:43 Dose: 4 mg Vancomycin HCl (Vancomycin Pharmacy To Dose) 1 each IV PKCONSULT [facility] Review of Systems ROS unobtainable: due to endotracheal tube, due to mental status Physical Examination - Vital Signs Vital Signs: Vital Signs Temp Pulse Resp BP Pulse Ox 98.9 F 103 H 24 145/96 100 04/02/17 04:12 04/02/17 04:12 04/02/17 04:12 04/02/17 04:12 04/02/17 04:12 - Constitutional General appearance: acutely ill, chronically ill - EENT EENT: Present: ATNC, mucous membranes dry - Respiratory Respiratory: Present: chest non-tender, no respiratory distress, decreased breath sounds - Cardiovascular Cardiovascular: Present: regular rate Extremities: Present: no peripheral edema bilatateraly, no clubbing, cyanosis, no inflammation, no ischemia or petechiae - Gastrointestinal Gastrointestinal: Present: normoactive bowel sounds, soft, non-distended - Integumentary Integumentary: Present: normal - Neurologic Cranial nerve examination: other (no pupil, corneal, oculocephalic or gag reflexes) Speech examination: other (no speech) Detailed motor examination: other (no movement to pain ) - Musculoskeletal Musculoskeletal: Present: no fluid collection, no pain, normal range of motion Results - Laboratory Findings CBC and BMP: 04/03/17 07:50 04/03/17 07:50 Abnormal Lab Findings: Abnormal Labs 04/03/17 04/03/17 04/03/17 06:18 07:50 07:50 WBC 43.8 H* MCV 71 L MCH 22 L RDW 16.3 H Seg Neuts % (Manual) 88.5 H Lymphocytes % (Manual) 2.5 L Seg Neutrophils # Man 38.8 H Lymphocytes # (Manual) 1.1 L Monocytes # (Manual) 1.3 H POC ABG pH 7.607 H POC ABG pCO2 21.8 L POC ABG pO2 106 H BUN 27 H Glucose 190 H Lactic Acid ALT 85 H Albumin 3.2 L 04/03/17 04/03/17 08:04 08:05 WBC MCV MCH RDW Seg Neuts % (Manual) Lymphocytes % (Manual) Seg Neutrophils # Man Lymphocytes # (Manual) Monocytes # (Manual) POC ABG pH 7.551 H POC ABG pCO2 31.0 L POC ABG pO2 493 H BUN Glucose Lactic Acid 3.30 H* ALT Albumin Assessment and Plan 46 YO F Hx Lupus p/w SOB and chest pain on 04/02 but while in ED at approx 6 PM she reportedly had GTC x 2 but CTH neg and pt apparently improved to following some commands although agitated pulling off NRB and further floor course complicated by MET call 6:40 AM for fixed blown pupils and unresponsiveness but no clear further documentation beyond initial VS and Tele normal. She was on Propofol for 30 mins prior to my exam. On neurologic exam pt has no brainstem reflexes (absent pupillary light response, corneal reflex, OCR, cold caloric response or gag) and no movement reflexic or purposeful to proximal/distal noxious stimulation. Pt meets clinical criteria for cerebral brain but unclear reason. Recommendations: 1. Neuro checks 2. STAT CTH repeat 3. Repeat examination by flat hammerer to confirm brain 4. Apnea test/radionucleotide cerebral blood flow scan to confirm no triggered respirations 5. I have had extensive discussion w/ Dr. Mcdermott who will reach out to flat hammerer for further Dx/Tx management 6. Cont LEV 500mg BID in interim
[2017-04-03] MEDS ORDERED: NACL 0.9% 1000 ML 1,000 ML IV ONE ×2 (12:30→13:00)
[2017-04-03] MEDS ORDERED: NACL 0.9% 1000 ML 2,000 ML ONE (12:43)
[2017-04-03] MEDS: LEVOPHED DRIP 4 MG/NS 250 ML 4 MG/250 ML BAG IV SCH (13:10)
--- NOTE | 2017-04-03 16:47 | Progress Note ---
Assessment and Plan Assessment and plan: Patient is a 46 years old female with past medical history of hypertension and lupus who presents to the emergency department for complaining chest pain and feeling post extubated throat discomfort. The character pain began in the midsternal area and radiated up to her neck.She states that the pain began two days ago and consisted of a dull pain. The onset of pain came while the patient was walking in her home. 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 Her discomfort was accompanied by shortness of breath, sweating, nausea, and vomiting. No alleviating factors . She does not attempted to relieve her pain, other than rest. She describes no other associated symptoms during these episodes of pain, including dizziness, or palpitations. She becomes short of breath during these Relevant positive and negative ROS for this complaint episodes but describes no other exertional dyspnea, orthopnea. Patient also complains post-intubation throat discomfort. patient was recently discharged from here 3 days ago on March 30. Patient was admitted for angioedema secondary to lisinopril and had intubated for about 7 days. She was given racemic epinephrine , steroids and bronchodilators, supplemental oxygen. She has been admitted to the ICU for monitoring for respiratory compromise and decompensation She required endotracheal intubation this morning secondary to respiratory distress Current ventilator settings and ABG 7.55/31/493/27.2 / AC-VC 16/450/5/100% 46 YO F Hx Lupus p/w SOB and chest pain on 04/02 but while in ED at approx 6 PM she reportedly had GTC x 2 but CTH neg and pt apparently improved to following some commands although agitated pulling off NRB and further floor course complicated by MET call 6:40 AM for fixed blown pupils and unresponsiveness but no clear further documentation beyond initial VS and Tele normal. She was on Propofol for 30 mins prior to my exam. On neurologic exam pt has no brainstem reflexes (absent pupillary light response, corneal reflex, OCR, cold caloric response or gag) and no movement reflexic or purposeful to proximal/distal noxious stimulation. Pt meets clinical criteria for cerebral brain but unclear reason. Recommendations: 1. Neuro checks 2. STAT CTH repeat 3. Repeat examination by chemistry account manager to confirm brain 4. Apnea test/radionucleotide cerebral blood flow scan to confirm no triggered respirations 5. I have had extensive discussion w/ Dr. Mcdermott who will reach out to chemistry account manager for further Dx/Tx management 6. Cont LEV 500mg BID in interim The high probability of a clinically significant, sudden or life threatening deterioration of the [Neuro,pulmonary] system(s) required my full and direct attention, intervention and personal management. The aggregate critical care time was [35] minutes. This time is in addition to time spent performing reported procedures but includes the following: [X] Data Review and interpretation [X] Patient assessment and monitoring of vital signs [X] Documentation [X] Medication orders and management History Interval history: Patient seen and examined,admitted with chest pain and seizure, intubated this morning, following code met due to patient not being responsive. remains unresponsive despite cessation of sedation Hospitalist Physical - Physical exam Narrative exam: VITAL SIGNS: Reviewed. GENERAL: Intubated. Vital signs as documented. HEAD: No signs of head trauma. EYES: Pupils are equal. EARS: UNABLE TO ASSESS. MOUTH: Oropharynx is normal, ETT in place NECK: No adenopathy, no JVD. CHEST: Chest with clear breath sounds bilaterally. No wheezes, rales, or rhonchi. CARDIAC: Regular rate and rhythm. S1 and S2, without murmurs, gallops, or rubs. VASCULAR: No Edema. Peripheral pulses normal and equal in all extremities. ABDOMEN: Soft, without detectable tenderness. No sign of distention. No rebound or guarding, and no masses palpated. Bowel Sounds normal. MUSCULOSKELETAL: Good range of motion of all major joints. Extremities without clubbing, cyanosis or edema. NEUROLOGIC EXAM: Not following commands. unresponsive PSYCHIATRIC: unable to asses SKIN: No rash or lesions. - Constitutional Vitals: Temp Pulse Resp BP Pulse Ox 97.7 F 69 14 120/83 100 04/03/17 12:00 04/03/17 15:44 04/03/17 15:11 04/03/17 15:44 04/03/17 15:44 General appearance: Present: severe distress, other (intubated and sedated) Results - Labs CBC & Chem 7: 04/03/17 07:50 04/03/17 07:50 Labs: Laboratory Last Values WBC 43.8 K/mm3 (4.5-11.0) H* 04/03/17 07:50 RBC 4.86 M/mm3 (3.65-5.03) 04/03/17 07:50 Hgb 10.6 gm/dl (10.1-14.3) 04/03/17 07:50 Hct 34.5 % (30.3-42.9) 04/03/17 07:50 MCV 71 fl (79-97) L 04/03/17 07:50 MCH 22 pg (28-32) L 04/03/17 07:50 MCHC 31 % (30-34) 04/03/17 07:50 RDW 16.3 % (13.2-15.2) H 04/03/17 07:50 Plt Count 225 K/mm3 (140-440) 04/03/17 07:50 Lymph % (Auto) 20.1 % (13.4-35.0) 04/02/17 04:30 [place] % (Auto) 9.5 % (0.0-7.3) H 04/02/17 04:30 Eos % (Auto) 0.6 % (0.0-4.3) 04/02/17 04:30 Baso % (Auto) 0.3 % (0.0-1.8) 04/02/17 04:30 Lymph # 2.9 K/mm3 (1.2-5.4) 04/02/17 04:30 [place] # 1.4 K/mm3 (0.0-0.8) H 04/02/17 04:30 Eos # 0.1 K/mm3 (0.0-0.4) 04/02/17 04:30 Baso # 0.0 K/mm3 (0.0-0.1) 04/02/17 04:30 Add Manual Diff Complete 04/03/17 07:50 Total Counted 200 04/03/17 07:50 Seg Neutrophils % Boiler Welder 04/03/17 07:50 Seg Neuts % (Manual) 88.5 % (40.0-70.0) H 04/03/17 07:50 Band Neutrophils % 3.5 % 04/03/17 07:50 Lymphocytes % (Manual) 2.5 % (13.4-35.0) L 04/03/17 07:50 Reactive Lymphs % (Man) 0 % 04/03/17 07:50 Monocytes % (Manual) 3.0 % (0.0-7.3) 04/03/17 07:50 Eosinophils % (Manual) 0 % (0.0-4.3) 04/03/17 07:50 Basophils % (Manual) 0 % (0.0-1.8) 04/03/17 07:50 Metamyelocytes % 2.0 % 04/03/17 07:50 Myelocytes % 0.5 % 04/03/17 07:50 Promyelocytes % 0 % 04/03/17 07:50 Blast Cells % 0 % 04/03/17 07:50 Nucleated RBC % Not Reportable 04/03/17 07:50 Seg Neutrophils # 10.1 K/mm3 (1.8-7.7) H 04/02/17 04:30 Seg Neutrophils # Man 38.8 K/mm3 (1.8-7.7) H 04/03/17 07:50 Band Neutrophils # 1.5 K/mm3 04/03/17 07:50 Lymphocytes # (Manual) 1.1 K/mm3 (1.2-5.4) L 04/03/17 07:50 Abs React Lymphs (Man) 0.0 K/mm3 04/03/17 07:50 Monocytes # (Manual) 1.3 K/mm3 (0.0-0.8) H 04/03/17 07:50 Eosinophils # (Manual) 0.0 K/mm3 (0.0-0.4) 04/03/17 07:50 Basophils # (Manual) 0.0 K/mm3 (0.0-0.1) 04/03/17 07:50 Metamyelocytes # 0.9 K/mm3 04/03/17 07:50 Myelocytes # 0.2 K/mm3 04/03/17 07:50 Promyelocytes # 0.0 K/mm3 04/03/17 07:50 Blast Cells # 0.0 K/mm3 04/03/17 07:50 Pathologist Review 04/03/17 07:50 WBC Morphology Not Reportable 04/03/17 07:50 Hypersegmented Neuts Not Reportable 04/03/17 07:50 Hyposegmented Neuts Not Reportable 04/03/17 07:50 Hypogranular Neuts Not Reportable 04/03/17 07:50 Smudge Cells Not Reportable 04/03/17 07:50 Toxic Granulation Not Reportable 04/03/17 07:50 Toxic Vacuolation Not Reportable 04/03/17 07:50 Dohle Bodies Not Reportable 04/03/17 07:50 Pelger-Huet Anomaly Not Reportable 04/03/17 07:50 Arcadio Rods Not Reportable 04/03/17 07:50 Platelet Estimate Consistent w auto 04/03/17 07:50 Clumped Platelets Not Reportable 04/03/17 07:50 Plt Clumps, EDTA Not Reportable 04/03/17 07:50 Large Platelets Not Reportable 04/03/17 07:50 Giant Platelets Not Reportable 04/03/17 07:50 Platelet Satelliting Not Reportable 04/03/17 07:50 Plt Morphology Comment Not Reportable 04/03/17 07:50 RBC Morphology Not Reportable 04/03/17 07:50 Dimorphic RBCs Not Reportable 04/03/17 07:50 Polychromasia Rare 04/03/17 07:50 Hypochromasia 2+ 04/03/17 07:50 Poikilocytosis Not Reportable 04/03/17 07:50 Anisocytosis 1+ 04/03/17 07:50 Microcytosis 1+ 04/03/17 07:50 Macrocytosis Not Reportable 04/03/17 07:50 Spherocytes Not Reportable 04/03/17 07:50 Pappenheimer Bodies Not Reportable 04/03/17 07:50 Sickle Cells Not Reportable 04/03/17 07:50 Target Cells 1+ 04/03/17 07:50 Tear Drop Cells Rare 04/03/17 07:50 Ovalocytes Rare 04/03/17 07:50 Helmet Cells Rare 04/03/17 07:50 [place] Bodies Not Reportable 04/03/17 07:50 [place] Rings Not Reportable 04/03/17 07:50 [place] Cells Not Reportable 04/03/17 07:50 Bite Cells Not Reportable 04/03/17 07:50 Crenated Cell Not Reportable 04/03/17 07:50 Elliptocytes Not Reportable 04/03/17 07:50 Acanthocytes (Spur) Not Reportable 04/03/17 07:50 Rouleaux Not Reportable 04/03/17 07:50 Hemoglobin C Crystals Not Reportable 04/03/17 07:50 Schistocytes Rare 04/03/17 07:50 Malaria parasites Not Reportable 04/03/17 07:50 Russ Bodies Not Reportable 04/03/17 07:50 Hem Pathologist Commnt Sent to pathology 04/03/17 07:50 POC ABG pH 7.551 (7.35-7.45) H 04/03/17 08:04 POC ABG pCO2 31.0 (35-45) L 04/03/17 08:04 POC ABG pO2 493 (80-105) H 04/03/17 08:04 POC ABG HCO3 27.2 04/03/17 08:04 POC ABG Total CO2 28 04/03/17 08:04 POC ABG O2 Sat 100 04/03/17 08:04 POC ABG Base Excess 5 04/03/17 08:04 FiO2 100 % 04/03/17 08:04 Sodium 142 mmol/L (137-145) 04/03/17 07:50 Potassium 4.5 mmol/L (3.6-5.0) 04/03/17 07:50 Chloride 101.1 mmol/L (98-107) 04/03/17 07:50 Carbon Dioxide 24 mmol/L (22-30) 04/03/17 07:50 Anion Gap 21 mmol/L 04/03/17 07:50 BUN 27 mg/dL (7-17) H 04/03/17 07:50 Creatinine 1.2 mg/dL (0.7-1.2) 04/03/17 07:50 Estimated GFR 59 ml/min 04/03/17 07:50 BUN/Creatinine Ratio 22.50 % 04/03/17 07:50 Glucose 190 mg/dL (65-100) H 04/03/17 07:50 POC Glucose 190 (70-105) H 04/03/17 06:00 Lactic Acid 2.00 mmol/L (0.7-2.0) 04/03/17 11:05 Calcium 8.4 mg/dL (8.4-10.2) 04/03/17 07:50 Total Bilirubin 0.90 mg/dL (0.1-1.2) 04/03/17 07:50 AST 26 units/L (5-40) 04/03/17 07:50 ALT 85 units/L (7-56) H 04/03/17 07:50 Alkaline Phosphatase 84 units/L (35-129) 04/03/17 07:50 Troponin T 0.028 ng/mL (0.00-0.029) 04/03/17 07:50 Total Protein 7.8 g/dL (6.3-8.2) 04/03/17 07:50 Albumin 3.2 g/dL (3.9-5) L 04/03/17 07:50 Albumin/Globulin Ratio 0.7 % 04/03/17 07:50
--- NOTE | 2017-04-03 18:29 | Cat Scan Report ---
FINAL REPORT EXAM: CT HEAD/BRAIN WO CON HISTORY: coma TECHNIQUE: CT head without contrast PRIORS: None. FINDINGS: There is a large left frontal parenchymal hemorrhage measuring approximately 5.7 x 4.8 centimeters. There is subarachnoid extension. Hemorrhage extends into left and right lateral ventricles and through the 3rd and 4th ventricles. There is some increased density at the dura suggesting of a subdural component. There is right to left midline shift approximately 1.0 centimeters. Basal cisterns are near completely effaced indicating uncal herniation. IMPRESSION: Large left frontal parenchymal hemorrhage with intraventricular, subarachnoid and subdural extension [id number] midline shift 1.0 centimeters. Near-complete effacement of the basal cisterns indicating uncal herniation.
--- NOTE | 2017-04-03 23:35 | Event Note ---
Date: 04/03/17 Was called by the hospitalist and nurse taking care of the patient stating that the paient has been off propofol and remained obtunded and unresponsive. Was noted to have fixed dilated pupils and was hypotensiv CTscan of the head- results show intracranial hemorrhage with imminent herniation. Neurology has been consulted. Patient's family will be contacted by the hospitalist service.
[2017-04-04] MEDS: LACTATED RINGERS 1,000 ML IV SCH ×2 (00:05→13:19)
[2017-04-04] MEDS: LOPRESSOR PO SCH ×3 (06:00→23:15)
[2017-04-04] MEDS: FLAGYL PO SCH ×3 (06:20→23:12)
[2017-04-04] MEDS: ZOSYN/NS 4.5GM/100ML 4.5 GM/100 ML VIAL IV SCH ×3 (06:22→23:12)
[2017-04-04 06:33] LABS: Hematocrit 29.8 % (30.3-42.9); Hemoglobin 9.5 gm/dl (10.1-14.3); Mean Corpuscular HGB Conc 32 % (30-34); Red Blood Count 4.33 M/mm3 (3.65-5.03)
[2017-04-04 06:34] LABS: Mean Corpuscular Hemoglobin 22 pg (28-32); Mean Corpuscular Volume 69 fl (79-97); Platelet Count 130 K/mm3 (140-440); White Blood Count 31.7 K/mm3 (4.5-11.0)
[2017-04-04 06:41] LABS: ISTAT Base Excess -1; ISTAT PCO2 41.8 (35-45); ISTAT PH 7.367 (7.35-7.45); ISTAT PO2 180 (80-105); ISTAT SO2 100; ISTAT TCO2 25
[2017-04-04 06:42] LABS: Anion Gap 12 mmol/L; Blood Urea Nitrogen 24 mg/dL (7-17); Carbon Dioxide 26 mmol/L (22-30); Chloride 121.5 mmol/L (98-107); Glucose 155 mg/dL (65-100); Sodium 157 mmol/L (137-145)
[2017-04-04 06:45] LABS: Potassium 2.9 mmol/L (3.6-5.0)
[2017-04-04] MEDS ORDERED: KCL 20MEQ/100ML 20 MEQ/100 ML BAG IV ONE (08:00)
[2017-04-04] MEDS ORDERED: POTASSIUM CHLORIDE FEEDTUBE ONE (08:00)
[2017-04-04] MEDS: COZAAR PO SCH (10:00)
[2017-04-04] MEDS ORDERED: VANCOMYCIN 1,250 MG in NACL 0.9% 250ML 250 ML IV SCH (10:00)
[2017-04-04] MEDS: NORVASC PO SCH (10:00)
[2017-04-04] MEDS: KEPPRA 500 MG in D5W 100 ML IV SCH (10:55)
[2017-04-04] MEDS: AZULFIDINE PO SCH (10:56)
[2017-04-04] MEDS: ZYLOPRIM PO SCH (10:56)
[2017-04-04] MEDS: PEPCID IV SCH ×2 (10:56→23:13)
[2017-04-04] MEDS: FOLVITE PO SCH (10:56)
[2017-04-04 12:41] LABS: ISTAT Base Excess -3; ISTAT HCO3 22.5; ISTAT PCO2 38.3 (35-45); ISTAT PH 7.376 (7.35-7.45); ISTAT PO2 157 (80-105); ISTAT SO2 99; ISTAT TCO2 24
--- NOTE | 2017-04-04 12:56 | Progress Note ---
Assessment and Plan 46 YO F Hx Lupus p/w SOB and chest pain on 04/02 but while in ED at approx 6 PM she reportedly had first lifetime GTC x 2 w/ residual R sided weakness per but CTH neg and pt apparently improved to following some commands although agitated pulling off NRB and further floor course complicated by MET call 6:40 AM for fixed blown pupils and unresponsiveness but no clear further documentation beyond initial VS and Tele normal although pt later hypertensive. On neurologic exam 04/03 approx 11 AM pt had no brainstem reflexes (absent pupillary light response, corneal reflex, OCR, cold caloric response or gag) and no movement reflexic or purposeful to proximal/distal noxious stimulation. This exam is stable 04/04 10 AM. Pt meets clinical criteria for cerebral brain and repeat CTH obtained 04/03 reveals > 30 cc L frontoparietal ICH w/ 1 cm midline shift, MAN, uncal hernation and cortes-white loss of differentiation. Unfortunately by the time of my initial consultation pt was already appearing clinically brain without any clear role for therapeutic intervention. I have had extensive discussion with family regarding my suspected etiology of L MCA stroke causing seizure and further large hemorrhagic transformation that progressed to likely formal declaration of brain after repeat clinical exam by plycor operator and cerebral blood flow scan. They affirms understanding and offer their thanks. I have expressed my condolences and my recommendation that they obtain an autopsy. Recommendations: 1. Neuro checks. NIHSS 36 2. Repeat examination by plycor operator to confirm brain 3. Apnea test to confirm no triggered respirations/radionucleotide cerebral blood flow scan to confirm no cerebral blood flow. Subjective Date of service: 04/04/17 Principal diagnosis: ICH, brain Interval history: CTH completed. no clinical change. Objective - Vital Sign Vital Signs - 12hr 04/04/17 04/04/17 04/04/17 00:51 01:00 01:11 Temperature Pulse Rate 58 L 58 L 58 L Pulse Rate [ From Monitor] Respiratory 15 14 14 Rate Blood Pressure 121/80 118/78 118/78 O2 Sat by Pulse 100 100 100 Oximetry 04/04/17 04/04/17 04/04/17 01:21 01:30 01:41 Temperature Pulse Rate 58 L 58 L 58 L Pulse Rate [ From Monitor] Respiratory 14 14 14 Rate Blood Pressure 120/79 114/79 114/79 O2 Sat by Pulse 100 100 100 Oximetry 04/04/17 04/04/17 04/04/17 01:51 02:00 02:11 Temperature Pulse Rate 57 L 57 L 57 L Pulse Rate [ From Monitor] Respiratory 14 14 14 Rate Blood Pressure 111/79 121/80 121/80 O2 Sat by Pulse 100 100 100 Oximetry 04/04/17 04/04/17 04/04/17 02:21 02:30 02:41 Temperature Pulse Rate 57 L 57 L 57 L Pulse Rate [ From Monitor] Respiratory 14 14 14 Rate Blood Pressure 124/80 121/79 121/80 O2 Sat by Pulse 100 100 100 Oximetry 04/04/17 04/04/17 04/04/17 02:51 03:00 03:11 Temperature Pulse Rate 57 L 57 L 57 L Pulse Rate [ From Monitor] Respiratory 14 14 14 Rate Blood Pressure 126/80 116/78 116/78 O2 Sat by Pulse 100 100 100 Oximetry 04/04/17 04/04/17 04/04/17 03:21 03:30 03:41 Temperature Pulse Rate 57 L 57 L 57 L Pulse Rate [ From Monitor] Respiratory 14 14 14 Rate Blood Pressure 125/82 124/80 124/80 O2 Sat by Pulse 100 100 100 Oximetry 04/04/17 04/04/17 04/04/17 03:51 04:00 04:11 Temperature Pulse Rate 56 L 57 L 56 L Pulse Rate [ From Monitor] Respiratory 14 14 14 Rate Blood Pressure 124/78 119/81 119/81 O2 Sat by Pulse 100 100 100 Oximetry 04/04/17 04/04/17 04/04/17 04:21 04:30 04:41 Temperature Pulse Rate 56 L 56 L 56 L Pulse Rate [ From Monitor] Respiratory 14 14 14 Rate Blood Pressure 111/78 118/78 118/78 O2 Sat by Pulse 100 100 100 Oximetry 04/04/17 04/04/17 04/04/17 04:51 05:00 05:11 Temperature Pulse Rate 56 L 56 L 56 L Pulse Rate [ From Monitor] Respiratory 14 14 14 Rate Blood Pressure 120/80 116/82 116/82 O2 Sat by Pulse 100 100 100 Oximetry 04/04/17 04/04/17 04/04/17 05:21 05:30 05:41 Temperature Pulse Rate 56 L 56 L 55 L Pulse Rate [ From Monitor] Respiratory 14 14 14 Rate Blood Pressure 119/79 115/79 119/79 O2 Sat by Pulse 98 100 100 Oximetry 04/04/17 04/04/17 04/04/17 05:51 06:00 06:11 Temperature Pulse Rate 55 L 55 L 64 Pulse Rate [ From Monitor] Respiratory 14 14 18 Rate Blood Pressure 115/79 122/81 122/81 O2 Sat by Pulse 100 100 100 Oximetry 04/04/17 04/04/17 04/04/17 06:21 06:31 06:41 Temperature Pulse Rate 61 61 58 L Pulse Rate [ From Monitor] Respiratory 14 14 14 Rate Blood Pressure 117/74 116/81 116/81 O2 Sat by Pulse 100 100 100 Oximetry 04/04/17 04/04/17 04/04/17 06:51 07:00 07:11 Temperature Pulse Rate 55 L 56 L 59 L Pulse Rate [ From Monitor] Respiratory 14 14 14 Rate Blood Pressure 97/65 72/47 94/67 O2 Sat by Pulse 100 100 100 Oximetry 04/04/17 04/04/17 04/04/17 07:21 07:29 07:31 Temperature Pulse Rate 60 59 L 58 L Pulse Rate [ From Monitor] Respiratory 14 14 Rate Blood Pressure 145/89 145/59 81/56 O2 Sat by Pulse 100 100 100 Oximetry 04/04/17 04/04/17 04/04/17 07:41 07:51 08:00 Temperature 98.6 F Pulse Rate 58 L 58 L 58 L Pulse Rate [ 58 L From Monitor] Respiratory 14 14 14 Rate Blood Pressure 81/56 86/59 89/61 O2 Sat by Pulse 100 100 100 Oximetry 04/04/17 04/04/17 04/04/17 08:11 08:21 08:30 Temperature Pulse Rate 58 L 59 L 60 Pulse Rate [ From Monitor] Respiratory 14 14 14 Rate Blood Pressure 89/61 89/62 96/66 O2 Sat by Pulse 100 100 100 Oximetry 04/04/17 04/04/17 04/04/17 08:41 08:51 09:00 Temperature Pulse Rate 60 60 60 Pulse Rate [ From Monitor] Respiratory 14 14 14 Rate Blood Pressure 96/66 105/70 96/69 O2 Sat by Pulse 100 100 100 Oximetry 04/04/17 04/04/17 04/04/17 09:11 09:21 09:30 Temperature Pulse Rate 59 L 57 L 57 L Pulse Rate [ From Monitor] Respiratory 14 14 14 Rate Blood Pressure 96/69 105/70 112/77 O2 Sat by Pulse 100 100 100 Oximetry 04/04/17 04/04/17 04/04/17 09:41 09:51 10:00 Temperature Pulse Rate 56 L 55 L 55 L Pulse Rate [ From Monitor] Respiratory 14 14 14 Rate Blood Pressure 112/77 116/80 121/80 O2 Sat by Pulse 100 100 100 Oximetry 04/04/17 04/04/17 04/04/17 10:11 12:00 12:36 Temperature 98.6 F Pulse Rate 54 L 67 Pulse Rate [ From Monitor] Respiratory 14 Rate Blood Pressure 121/80 96/67 O2 Sat by Pulse 100 100 Oximetry - General Apperance Constitutional: acutely ill - EENT EENT: ATNC, mucous membranes dry - Respiratory Respiratory: no respiratory distress, decreased breath sounds - Cardiovascular Cardiovascular: regular rate Extremities: no peripheral edema bilat, no clubbing, cyanosis, no inflammation, no ischemia or petechiae - Gastrointestinal Gastrointestinal: normoactive bowel sounds, soft, non-distended - Integumentary Integumentary: normal - Neurologic Cranial nerve examination: other (no brainstem reflexes) Speech examination: other (none) Detailed motor examination: other (no movement) - Musculoskeletal Musculoskeletal: no fluid collection, no pain, normal range of motion - Laboratory Findings CBC and BMP: 04/04/17 05:30 04/04/17 05:30 Abnormal Lab Findings: Abnormal Labs 04/03/17 04/03/17 04/03/17 06:00 06:18 07:50 WBC 43.8 H* Hgb Hct MCV 71 L MCH 22 L RDW 16.3 H Plt Count Seg Neuts % (Manual) 88.5 H Lymphocytes % (Manual) 2.5 L Seg Neutrophils # Man 38.8 H Lymphocytes # (Manual) 1.1 L Monocytes # (Manual) 1.3 H POC ABG pH 7.607 H POC ABG pCO2 21.8 L POC ABG pO2 106 H Sodium Potassium Chloride BUN Glucose POC Glucose 190 H Lactic Acid Calcium ALT Albumin 04/03/17 04/03/17 04/03/17 07:50 08:04 08:05 WBC Hgb Hct MCV MCH RDW Plt Count Seg Neuts % (Manual) Lymphocytes % (Manual) Seg Neutrophils # Man Lymphocytes # (Manual) Monocytes # (Manual) POC ABG pH 7.551 H POC ABG pCO2 31.0 L POC ABG pO2 493 H Sodium Potassium Chloride BUN 27 H Glucose 190 H POC Glucose Lactic Acid 3.30 H* Calcium ALT 85 H Albumin 3.2 L 04/04/17 04/04/17 04/04/17 05:30 05:30 05:41 WBC 31.7 H Hgb 9.5 L Hct 29.8 L MCV 69 L MCH 22 L RDW 16.0 H Plt Count 130 L Seg Neuts % (Manual) Lymphocytes % (Manual) Seg Neutrophils # Man Lymphocytes # (Manual) Monocytes # (Manual) POC ABG pH POC ABG pCO2 POC ABG pO2 180 H Sodium 157 H D Potassium 2.9 L* D Chloride 121.5 H BUN 24 H Glucose 155 H POC Glucose Lactic Acid Calcium 8.0 L ALT Albumin 04/04/17 12:15 WBC Hgb Hct MCV MCH RDW Plt Count Seg Neuts % (Manual) Lymphocytes % (Manual) Seg Neutrophils # Man Lymphocytes # (Manual) Monocytes # (Manual) POC ABG pH POC ABG pCO2 POC ABG pO2 157 H Sodium Potassium Chloride BUN Glucose POC Glucose Lactic Acid Calcium ALT Albumin
[2017-04-04] MEDS: LEVOPHED DRIP 4 MG/NS 250 ML 4 MG/250 ML BAG IV SCH (13:18)
--- NOTE | 2017-04-04 13:30 | Nuclear Medicine Report ---
Nuclear medicine brain flow study. History: Clinical brain . Findings: After the intravenous injection of 20 mCi of technetium 99 pertechnetate, dynamic images at 4 seconds intervals were obtained. Static images were obtained approximately 3 minutes after injection. On both the flow and static images, there is no evidence of intracranial activity. Impression: No intracranial blood flow. Comment: These findings were given by telephone to the patient's nurse in the ICU at 1:20 PM on April 04, 2017. Code purple.
--- NOTE | 2017-04-04 14:49 | Progress Note ---
Assessment and Plan - Patient Problems (1) Brain Current Visit: Yes Status: Acute Plan to address problem: Catastrophic intracranial bleeding with brain based on physical examination and nuclear medicine blood flow studies. Discussed with hospitalist service. Subjective Date of service: 04/04/17 Principal diagnosis: ICH, brain Interval history: Patient was seen and examined this morning. Has been unresponsive and all sedation had been held Patient is breathing at the set rate of the ventilator Pupils were dilated and fixed. There was no gag or cough reflex, absent corneal reflexes. A clinical determination of brain was made. Nuclear medicine blood flow was ordered and results showed the absence of any flow. These results were discussed extensively with the family. Objective Vital Signs - 12hr 04/04/17 04/04/17 04/04/17 02:51 03:00 03:11 Temperature Pulse Rate 57 L 57 L 57 L Pulse Rate [ From Monitor] Respiratory 14 14 14 Rate Blood Pressure 126/80 116/78 116/78 O2 Sat by Pulse 100 100 100 Oximetry 04/04/17 04/04/17 04/04/17 03:21 03:30 03:41 Temperature Pulse Rate 57 L 57 L 57 L Pulse Rate [ From Monitor] Respiratory 14 14 14 Rate Blood Pressure 125/82 124/80 124/80 O2 Sat by Pulse 100 100 100 Oximetry 04/04/17 04/04/17 04/04/17 03:51 04:00 04:11 Temperature Pulse Rate 56 L 57 L 56 L Pulse Rate [ From Monitor] Respiratory 14 14 14 Rate Blood Pressure 124/78 119/81 119/81 O2 Sat by Pulse 100 100 100 Oximetry 04/04/17 04/04/17 04/04/17 04:21 04:30 04:41 Temperature Pulse Rate 56 L 56 L 56 L Pulse Rate [ From Monitor] Respiratory 14 14 14 Rate Blood Pressure 111/78 118/78 118/78 O2 Sat by Pulse 100 100 100 Oximetry 04/04/17 04/04/17 04/04/17 04:51 05:00 05:11 Temperature Pulse Rate 56 L 56 L 56 L Pulse Rate [ From Monitor] Respiratory 14 14 14 Rate Blood Pressure 120/80 116/82 116/82 O2 Sat by Pulse 100 100 100 Oximetry 04/04/17 04/04/17 04/04/17 05:21 05:30 05:41 Temperature Pulse Rate 56 L 56 L 55 L Pulse Rate [ From Monitor] Respiratory 14 14 14 Rate Blood Pressure 119/79 115/79 119/79 O2 Sat by Pulse 98 100 100 Oximetry 04/04/17 04/04/17 04/04/17 05:51 06:00 06:11 Temperature Pulse Rate 55 L 55 L 64 Pulse Rate [ From Monitor] Respiratory 14 14 18 Rate Blood Pressure 115/79 122/81 122/81 O2 Sat by Pulse 100 100 100 Oximetry 04/04/17 04/04/17 04/04/17 06:21 06:31 06:41 Temperature Pulse Rate 61 61 58 L Pulse Rate [ From Monitor] Respiratory 14 14 14 Rate Blood Pressure 117/74 116/81 116/81 O2 Sat by Pulse 100 100 100 Oximetry 04/04/17 04/04/17 04/04/17 06:51 07:00 07:11 Temperature Pulse Rate 55 L 56 L 59 L Pulse Rate [ From Monitor] Respiratory 14 14 14 Rate Blood Pressure 97/65 72/47 94/67 O2 Sat by Pulse 100 100 100 Oximetry 04/04/17 04/04/17 04/04/17 07:21 07:29 07:31 Temperature Pulse Rate 60 59 L 58 L Pulse Rate [ From Monitor] Respiratory 14 14 Rate Blood Pressure 145/89 145/59 81/56 O2 Sat by Pulse 100 100 100 Oximetry 04/04/17 04/04/17 04/04/17 07:41 07:51 08:00 Temperature 98.6 F Pulse Rate 58 L 58 L 58 L Pulse Rate [ 58 L From Monitor] Respiratory 14 14 14 Rate Blood Pressure 81/56 86/59 89/61 O2 Sat by Pulse 100 100 100 Oximetry 04/04/17 04/04/17 04/04/17 08:11 08:21 08:30 Temperature Pulse Rate 58 L 59 L 60 Pulse Rate [ From Monitor] Respiratory 14 14 14 Rate Blood Pressure 89/61 89/62 96/66 O2 Sat by Pulse 100 100 100 Oximetry 04/04/17 04/04/17 04/04/17 08:41 08:51 09:00 Temperature Pulse Rate 60 60 60 Pulse Rate [ From Monitor] Respiratory 14 14 14 Rate Blood Pressure 96/66 105/70 96/69 O2 Sat by Pulse 100 100 100 Oximetry 04/04/17 04/04/17 04/04/17 09:11 09:21 09:30 Temperature Pulse Rate 59 L 57 L 57 L Pulse Rate [ From Monitor] Respiratory 14 14 14 Rate Blood Pressure 96/69 105/70 112/77 O2 Sat by Pulse 100 100 100 Oximetry 04/04/17 04/04/17 04/04/17 09:41 09:51 10:00 Temperature Pulse Rate 56 L 55 L 55 L Pulse Rate [ From Monitor] Respiratory 14 14 14 Rate Blood Pressure 112/77 116/80 121/80 O2 Sat by Pulse 100 100 100 Oximetry 04/04/17 04/04/17 04/04/17 10:11 10:21 10:30 Temperature Pulse Rate 54 L 54 L 54 L Pulse Rate [ From Monitor] Respiratory 14 14 14 Rate Blood Pressure 121/80 125/81 121/80 O2 Sat by Pulse 100 100 100 Oximetry 04/04/17 04/04/17 04/04/17 10:41 10:51 11:00 Temperature Pulse Rate 53 L 53 L 53 L Pulse Rate [ From Monitor] Respiratory 14 14 15 Rate Blood Pressure 121/80 121/80 120/82 O2 Sat by Pulse 100 100 100 Oximetry 04/04/17 04/04/17 04/04/17 11:11 11:21 11:59 Temperature Pulse Rate 54 L 53 L Pulse Rate [ From Monitor] Respiratory 14 14 Rate Blood Pressure 120/82 113/77 108/69 O2 Sat by Pulse 100 100 Oximetry 04/04/17 04/04/17 04/04/17 12:00 12:01 12:11 Temperature 98.6 F Pulse Rate 58 L 64 Pulse Rate [ 58 L From Monitor] Respiratory 14 14 14 Rate Blood Pressure 108/69 108/69 O2 Sat by Pulse 100 100 Oximetry 04/04/17 04/04/17 04/04/17 12:21 12:30 12:36 Temperature Pulse Rate 68 67 67 Pulse Rate [ From Monitor] Respiratory 14 14 Rate Blood Pressure 113/77 96/67 96/67 O2 Sat by Pulse 100 100 100 Oximetry 04/04/17 04/04/17 04/04/17 12:41 12:51 13:00 Temperature Pulse Rate 65 64 63 Pulse Rate [ From Monitor] Respiratory 14 14 14 Rate Blood Pressure 96/67 94/63 86/56 O2 Sat by Pulse 100 100 100 Oximetry 04/04/17 04/04/17 04/04/17 13:11 13:21 13:30 Temperature Pulse Rate 64 66 68 Pulse Rate [ From Monitor] Respiratory 14 14 14 Rate Blood Pressure 86/56 84/54 86/59 O2 Sat by Pulse 100 100 100 Oximetry 04/04/17 04/04/17 13:41 13:51 Temperature Pulse Rate 69 67 Pulse Rate [ From Monitor] Respiratory 14 14 Rate Blood Pressure 86/59 89/59 O2 Sat by Pulse 100 100 Oximetry Constitutional: no acute distress, other ( intubated. ETT to vent, small bowel feeding tube in nares) Eyes: non-icteric ENT: oropharynx moist Neck: supple, no JVD Effort: normal Ascultation: Bilateral: clear, diminished breath sounds Cardiovascular: regular rate and rhythm Gastrointestinal: normoactive bowel sounds, soft, non-distended Integumentary: normal Extremities: no cyanosis, no edema, pink and warm, pulses normal Neurologic: unable to assess (sedated on propofol) CBC and BMP: 04/04/17 05:30 04/04/17 05:30 ABG, PT/INR, D-dimer: ABG POC ABG pH 7.376 (7.35-7.45) 04/04/17 12:15 POC ABG pCO2 38.3 (35-45) 04/04/17 12:15 POC ABG pO2 157 (80-105) H 04/04/17 12:15 POC ABG HCO3 22.5 04/04/17 12:15 POC ABG Total CO2 24 04/04/17 12:15 POC ABG O2 Sat 99 04/04/17 12:15 Abnormal lab findings: Abnormal Labs 04/03/17 04/03/17 04/03/17 06:00 06:18 07:50 WBC 43.8 H* Hgb Hct MCV 71 L MCH 22 L RDW 16.3 H Plt Count Seg Neuts % (Manual) 88.5 H Lymphocytes % (Manual) 2.5 L Seg Neutrophils # Man 38.8 H Lymphocytes # (Manual) 1.1 L Monocytes # (Manual) 1.3 H POC ABG pH 7.607 H POC ABG pCO2 21.8 L POC ABG pO2 106 H Sodium Potassium Chloride BUN Glucose POC Glucose 190 H Lactic Acid Calcium ALT Albumin 04/03/17 04/03/17 04/03/17 07:50 08:04 08:05 WBC Hgb Hct MCV MCH RDW Plt Count Seg Neuts % (Manual) Lymphocytes % (Manual) Seg Neutrophils # Man Lymphocytes # (Manual) Monocytes # (Manual) POC ABG pH 7.551 H POC ABG pCO2 31.0 L POC ABG pO2 493 H Sodium Potassium Chloride BUN 27 H Glucose 190 H POC Glucose Lactic Acid 3.30 H* Calcium ALT 85 H Albumin 3.2 L 04/04/17 04/04/17 04/04/17 05:30 05:30 05:41 WBC 31.7 H Hgb 9.5 L Hct 29.8 L MCV 69 L MCH 22 L RDW 16.0 H Plt Count 130 L Seg Neuts % (Manual) Lymphocytes % (Manual) Seg Neutrophils # Man Lymphocytes # (Manual) Monocytes # (Manual) POC ABG pH POC ABG pCO2 POC ABG pO2 180 H Sodium 157 H D Potassium 2.9 L* D Chloride 121.5 H BUN 24 H Glucose 155 H POC Glucose Lactic Acid Calcium 8.0 L ALT Albumin 04/04/17 12:15 WBC Hgb Hct MCV MCH RDW Plt Count Seg Neuts % (Manual) Lymphocytes % (Manual) Seg Neutrophils # Man Lymphocytes # (Manual) Monocytes # (Manual) POC ABG pH POC ABG pCO2 POC ABG pO2 157 H Sodium Potassium Chloride BUN Glucose POC Glucose Lactic Acid Calcium ALT Albumin Brain - Date of Examination Date of service: 04/04/17 - Prior to examination Prerequisites for the brain examination: evidence of catastrophic brain injury, blood sugar is between 60 and 400mg/dL, blood pressure is >90/40, no drug intoxication or poisoning, all sedatives,anesthetics and neuromuscular blockade agents are off - Evaluation of unresponsiveness No motor response to painful pressure applied to: all extremities, supraorbital , sternal rub No autonomic response to painful stimulation: no change in heart rate per auscultation or lunchroom monitor - Evaluation of brainstem reflexes Pupils: size is midposition (4mm) to dilated (9mm) Facial sensation and facial motor response: no corneal reflex, no grimacing to pressure on the supraorbital ridge Pharyngeal and tracheal reflexes: absent cough, absent gag reflex (on endotracheal tube sutioning)
--- NOTE | 2017-04-04 16:58 | Death Summary ---
Summary - Providers Date of service: 04/04/17 Consults: 04/02/17 21:09 Speech Therapy Evaluation and Treat [CONS] Routine Reason For Exam: swallow screen 04/03/17 00:07 Consult to Physician [CONS] Routine Consulting Provider: PARTH IBARRA Reason For Exam: seizure Place consult to:: Parth Chandler Notified:: Yes Phone number called:: [phone] If yes, spoke with:: Audict Time called:: 10:56 Comment:: Left a message to Xander Cartagena 04/03/17 00:18 Consult to Physician [CONS] Urgent Consulting Provider: WYATT DUNN Reason For Exam: change in mental status Place consult to:: roberto Notified:: no 04/03/17 07:39 Consult to Physician [CONS] Urgent Consulting Provider: DAIN PRITCHETT Reason For Exam: CCU admit Place consult to:: Dr. Pritchett Notified:: no 04/03/17 07:41 PICC Line Insertion [Consult to PICC Line RN] [CONS] Stat Reason For Exam: unable to get a line in CCU Type Line:: PICC Attending: LAUREN PRINGLE MD - summary Date of admission: 04/02/17 07:19 Date of : 04/04/17 Reason for admission: chest pain, shortness of breath, seizure Significant findings: BRAIN FLOW NO SCAN Procedures/treatments rendered: Patient is a 46 years old female with past medical history of hypertension and lupus who presents to the emergency department for complaining chest pain and feeling post extubated throat discomfort. The character pain began in the midsternal area and radiated up to her neck. She states that the pain began two days ago and consisted of a dull pain. The onset of pain came while the patient was walking in her home. 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 Her discomfort was accompanied by shortness of breath, sweating, nausea, and vomiting. No alleviating factors. She does not attempted to relieve her pain, other than rest. Per notations at approx 6 PM she reportedly had first lifetime GTC x 2 w/ residual R sided weakness per but CTH neg and pt apparently improved to following some commands although agitated pulling off NRB and further floor course complicated by MET call 6:40 AM for fixed blown pupils and unresponsiveness but no clear further documentation beyond initial VS and Tele normal although pt later hypertensive. Per documentation by Neurolgist On neurologic exam 04/03 approx 11 AM pt had no brainstem reflexes (absent pupillary light response, corneal reflex, OCR, cold caloric response or gag) and no movement reflexic or purposeful to proximal/ distal noxious stimulation. This exam is stable 04/04 10 AM. Pt meets clinical criteria for cerebral brain and repeat CTH obtained 04/03 reveals > 30 cc L frontoparietal ICH w/ 1 cm midline shift, MAN, uncal hernation and cortes-white loss of differentiation. Unfortunately by the time of my initial consultation pt was already appearing clinically brain without any clear role for therapeutic intervention." Patient was also noted to be septic likely Aspiration Pneumonitis with positive blood culture and was started on Emperic antibiotic coverage. We proceeded after discussion with the family the patient had a cerebral blood flow scan done which shows no evidence of flow. I did call the and patient was declared Brain 04/04/17. Time 1313." They are awaiting additional family to come in the morning and understand that we will need to remove from the vent in AM. Time spent 45 MINS Physical Exam: - General Apperance Constitutional: Unresponsive, full ventilatory support - EENT EENT: pupil fixed and dilated, non reactive, mucous membranes dry - Respiratory Respiratory: no respiratory distress, decreased breath sounds - Cardiovascular Cardiovascular: regular rate Extremities: no peripheral edema bilat, no clubbing, cyanosis, no inflammation, no ischemia or petechiae - Gastrointestinal Gastrointestinal: normoactive bowel sounds, soft, non-distended - Integumentary Integumentary: normal - Neurologic Cranial nerve examination: other (no brainstem reflexes) Speech examination: other (none) Detailed motor examination: other (no movement) - Musculoskeletal Musculoskeletal: no fluid collection, no pain, normal range of motion Final Diagnosis 1. Left frontoparietal ICH with uncal Herniation 2. Acute Respiratory failure 3. Septic shock 4. Lupus 5. Seizure 6. HTN 7. ALYCE 8. Hypokalemia
[2017-04-05] MEDS: LEVOPHED DRIP 4 MG/NS 250 ML 4 MG/250 ML BAG IV SCH ×2 (00:28→09:25)
[2017-04-05 05:31] LABS: ISTAT Base Excess -4; ISTAT HCO3 21.7; ISTAT PCO2 38.9 (35-45); ISTAT PH 7.354 (7.35-7.45); ISTAT PO2 166 (80-105); ISTAT SO2 99; ISTAT TCO2 23
[2017-04-05] MEDS: ZOSYN/NS 4.5GM/100ML 4.5 GM/100 ML VIAL IV SCH (06:37)
[2017-04-05] MEDS: KEPPRA 500 MG in D5W 100 ML IV SCH (06:40)
[2017-04-05] MEDS: FLAGYL PO SCH (06:40)
[2017-04-05 12:41] VITALS: BP 117/78
--- NOTE | 2017-04-05 17:24 | Event Note ---
Date: 04/05/17 Family arrived at bedside, all questions answered. Family asked to proceed with vent discontinuation. This was done respectfully, family offered our condolence. Cardiac immediate.
== END 2017-04-05 15:15 | DRG 871 ==
LOC: ED 03:45 → 4A 07:19 → CC1 04-03 06:27
PROVIDERS: ADMIT Internal Medicine; ATTEND Internal Medicine
PROC: 5A1945Z Respiratory Ventilation, 24-96 Consecutive Hours (ICD-10-PCS; principal; 2017-04-03)
PROC: 4A033R1 Measurement of Arterial Saturation, Peripheral, Percutaneous Approach (ICD-10-PCS; 2017-04-03)
PROC: 0BH17EZ Insertion of Endotracheal Airway into Trachea, Via Natural or Artificial Opening (ICD-10-PCS; 2017-04-03)
DX: A41.9 Sepsis, unspecified organism (principal); J96.01 Acute respiratory failure with hypoxia; G93.40 Encephalopathy, unspecified; R65.21 Severe sepsis with septic shock; J69.0 Pneumonitis due to inhalation of food and vomit; J95.89 Other postprocedural complications and disorders of respiratory system, not elsewhere classified; N17.9 Acute kidney failure, unspecified; R07.9 Chest pain, unspecified; I10 Essential (primary) hypertension; J45.909 Unspecified asthma, uncomplicated; Z88.8 Allergy status to other drugs, medicaments and biological substances; M32.9 Systemic lupus erythematosus, unspecified; Z98.51 Tubal ligation status; Z82.49 Family history of ischemic heart disease and other diseases of the circulatory system; R56.9 Unspecified convulsions; T78.3XXA Angioneurotic edema, initial encounter; E87.6 Hypokalemia
CPT/HCPCS: 31500; 36415; 36600; 70360; 70450; 71010; 74000; 78582; 78601; 80048; 80053; 82140; 82803; 82962; 84484; 85007; 85025; 85027; 87040; 87076; 87086; 87186; 87493; 93005; 93010; 93970; 94003; 94640; 96374; 99285; A9512; A9540; A9558; J0360; J1644; J1953; J2060; J2250; J2543; J2704; J2920; J2930; J3370; J3480; J7030; J7040; J7050; J7120; J8610